=== PATIENT | female | born 1945 | race Caucasian/White ===

== ENCOUNTER 2025-01-12 07:08 | Outpatient (CLI) | payer MEDICARE, SELFPAY ==
--- OUTSIDE RECORDS SUMMARY | 2025-01-12 07:13 | XMS_ITS | Referral Summary ---
Author Organization [facility] [address] Address [address] [place] [address] Phone Care Team Providers Care Load Builder Name Role Phone Yareli Singh MD Primary Care Provider + [phone] Robert Morrissey MD Unavailable [phone] Mars Parnell MD Unavailable [phone] She Castellon MD Unavailable [phone] Edmund Duran MD Unavailable [phone] Miguel Joe MD Unavailable [phone] Alessia Zaldivar MD Unavailable Tio Irving MD Unavailable Encounters Date Type Department Care Team Description 01/11/2025 Results Follow-Up [facility] [address] [place] [address] Cathryn Bryant NP Hemoglobin A1c, CBC with auto differential, Basic metabolic panel, Additional followed-up results: 3 01/08/2025 11:00 AM CDT Lab [facility] [address] [place] [address] HTN (hypertension), benign; Prediabetes; Osteoporosis, idiopathic 01/08/2025 10:00 AM CDT Office Visit [facility] [address] [place] [phone] Cathryn Bryant NP Pre-op evaluation (Primary Dx); HTN (hypertension), benign; Prediabetes 12/09/2024 3:18 PM CDT - 12/09/2024 11:59 PM CDT Hospital Encounter [facility] [address] [place] [address] Right knee pain, unspecified chronicity Discharge Disposition: Discharge to home or self care 12/09/2024 3:17 PM CDT - 12/09/2024 11:59 PM CDT Hospital Encounter [address] [address] Nontoxic single thyroid nodule Discharge Disposition: Discharge to home or self care 11/27/2024 Telephone [facility] [address] [place] [address] Yareli Singh MD 11/27/2024 ACO Medication Access [facility] [address] [place] [id number] Maria Dolores Kramer CPhT 11/23/2024 Telephone [facility] [address] [place] [address] Teresa Joseph Chart Review ([employer] med adherence) 11/10/2024 Telephone [facility] [address] [place] [address] Yareli Singh MD Mounjaro 11/03/2024 Telephone [facility] [address] [place] [address] Yareli Singh MD Endrocrinology 11/02/2024 Telephone [facility] [address] [place] [address] Yareli Singh MD Mounjaro 11/02/2024 1:00 PM CDT [facility] [address] [place] [address] Yareli Singh MD Annual physical exam (Primary Dx); Vertiginous migraine; Mild nonproliferative diabetic retinopathy of both eyes without macular edema associated with type 2 diabetes mellitus (HCC); Type 2 diabetes; Exocrine pancreatic insufficiency; Osteoporosis, idiopathic; Rotator cuff disorder, left; Arthritis of right knee; Exercise-induced asthma; Chronic GERD; Thyroid nodule; Hypertension associated with diabetes (HCC); Irritable bowel syndrome with both constipation and diarrhea; Primary open angle glaucoma (POAG) of both eyes, moderate stage; Mood disorder (CMS/HCC) (HCC); Midline low back pain without sciatica, unspecified chronicity; Immunization counseling 10/26/2024 Results Follow-Up [facility] [address] [place] [address] Yareli Singh MD Hepatitis B core antibody, total Blood, Hepatitis B surface antibody (immune status) Blood, Hepatitis B Surface Antigen Blood, Additional followed-up results: 3 10/26/2024 8:10 AM CDT Lab [facility] [address] [place] [address] Need for hepatitis B screening test; Encounter for hepatitis C screening test for low risk patient; 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) 10/23/2024 Telephone [facility] [address] [place] [address] Naima Kimbrough RN 10/19/2024 Orders Only [facility] [address] [place] [address] Philip Anne NP Strain of latissimus dorsi muscle, initial encounter (Primary Dx); Acute pain of right knee 10/15/[address] [address] Lauren Rhoades MA Unsuccessful Phone Call 1 (Med adherence) 10/14/2024 Orders Only [facility] [address] [facility] [address] [place] [address] Yareli Singh MD Grief reaction (Primary Dx) 10/13/2024 9:30 AM CDT Office Visit [facility] [address] [place] [address] Philip Anne NP Strain of latissimus dorsi muscle, initial encounter (Primary Dx); Situational anxiety; Hypertension associated with diabetes (HCC); Acute pain of right knee 10/13/2024 Telephone [facility] [address] [place] [address] Naima Kimbrough RN from Last 3 Months Allergies Active Allergy Reactions Criticality Noted Date Comments Adhesive Tape-Silicones Rash Medium Reaction: rash, , Brimonidine Itching Low 11/27/2022 Metformin Diarrhea Low 03/04/2020 Milk Diarrhea,Other (See comments) Low Reaction: bloating, diarrhea, Semaglutide Nausea only Low 03/29/2021 Nausea, GERD, GERD associated wheezing Dulaglutide Diarrhea Low 08/26/2023 Abdominal bloating and diarrhea on dose of 4.5 mg daily. Going to try Mounjaro = Tirzeptide =Zepbound Wheat Shortness of breath,Stomach upset High Reaction: sob, stomach upset, Medications vit A,C and W-maftkk-jkhqtgxu (OCUVITE with LUTEIN) 1,000 unit-200 mg-60 unit-2 mg tabletIndications:V itamin Deficiency Prevention 1 tablet Active UdBk-VhSFO4-ruwfrkk n sod-aloe 0.9 % gel Apply to affected nostril(s) Active lancets (Accu-Chek Fastclix Lancet Drum) misc 1 each by other route as directed Check glucose levels once daily as needed to monitor glucose levels E11.9 90 each 1 021 Active dorzolamide-timoloL (COSOPT) 22.3-6.8 mg/mL ophthalmic solution Administer 1 drop into both eyes 2 (two) times a day 022 Active latanoprost (XALATAN) 0.005 % ophthalmic solution INSTILL 1 DROP INTO EACH EYE ONCE DAILY 023 Active triamcinolone (KENALOG) 0.1 % ointmentIndications :skin rash,lichen planus Apply topically 2 (two) times a day For 4 weeks when having flares 30 g 1 Active Additional Information Patient not taking.Reported on 01/08/2025 dicyclomine (BENTYL) 10 mg capsuleIndications: Irritable Bowel Syndrome Take 1 capsule (10 mg total) by mouth daily as needed (Abdominal discomfort) 60 capsule 1 Active cholecalciferol (VITAMIN D-3) 50,000 unit capsuleIndications: Osteoporosis, idiopathic,Vitamin D deficiency Take 1 capsule (50,000 Units total) by mouth once a week Active Additional Information Patient not taking.Reported on 01/08/2025 albuterol HFA (PROVENTIL HFA,VENTOLIN HFA,PROAIR HFA) 90 mcg/actuation inhalerIndications: Exercise-induced asthma Inhale 2 puffs every 6 (six) hours as needed for wheezing 1 each 5 Active busPIRone (BUSPAR) 15 mg tabletIndications:M ood disorder Take 1 tablet (15 mg total) by mouth 2 (two) times a day 180 tablet 2 Active Additional Information Patient taking differently:15 mg oral 2 times daily,Once a day, Reported on 01/08/2025 famotidine (PEPCID) 20 mg tabletIndications:C hronic GERD Take 1 tablet (20 mg total) by mouth 2 (two) times a day as needed for heartburn or indigestion 180 tablet 2 Active pancrelipase (CREON) 24,000 units of lipase capsuleIndications: exocrine pancreatic insufficiency Take 3 capsules by mouth 3 (three) times a day with meals Three at meals and 1 with snacks Max 12 capsules daily 1100 capsule 3 Active abaloparatide (Tymlos) 80 mcg (3,120 mcg/1.56 mL) pen injectorIndications :Osteoporosis, idiopathic Inject 0.04 mL (80 mcg total) under the skin daily before breakfast 1.56 mL 11 Active topiramate (TOPAMAX) 25 mg tabletIndications:V ertiginous migraine Take 1 tablet (25 mg total) by mouth nightly 90 tablet 2 025 Active blood glucose diagnostic (Accu-Chek SmartView Test Strip) stripIndications:Pr ediabetes USE TO CHECK GLUCOSE LEVEL ONCE DAILY E11.9 100 strip 1 025 Active tirzepatide (Mounjaro) 5 mg/0.5 mL pen injector injectionIndication s:Prediabetes Inject 0.5 mL (5 mg total) under the skin once a week 6 mL 2 025 Active cholecalciferol 25 mcg (1,000 unit) tablet Take 1 tablet (1,000 Units total) by mouth daily Active cholestyramine (QUESTRAN) 4 gram packetIndications:D iarrhea following gastrointestinal surgery Take 1 packet by mouth daily for 14 days 14 packet 1 020 2019 Discontinued Active Problems Problem Noted Date Diagnosed Date Pre-op evaluation 01/08/2025 Assessment & Plan (01/08/2025 10:37 AM CDT): Presents for R TKR clearance with Dr. Parnell. Meds and allergies reviewed in office today for accuracy. Vitals stable, no acute findings on exam. Stop Tymlos 30 days before procedure. RCRI score of 1. Low risk for surgical complications, cleared for procedure. Will fax clearance form and recent labs to Dr. Parnell. Situational anxiety 10/13/2024 Assessment & Plan (10/13/2024 11:18 AM CDT): New, unstable, progressive Differential diagnoses: Situational anxiety v new onset chronic depression Hx relative to dx: Recent passing of her son 10/10/2024 Current meds: BuSpar PHQ today = 2 Requesting Xanax. States she has taken Xanax in the past with situational anxiety. Today's Plan: Continue BuSpar Will send request for Xanax to Dr. Singh, pending her authorization. Discussed: Encourage patient to discuss mental health concerns at follow-up appointment. Acute pain of right knee 10/13/2024 Assessment & Plan (10/13/2024 11:26 AM CDT): Acute and Progressive Differential diagnoses: Acute ligamentous injury v meniscal injury Hx relative to dx: Reports she was walking in her yd when she twisted her knee; history of left total knee arthroplasty via Dr. Parnell Relative exam findings today: See physical exam documentation Current meds: none Today's Plan: No medications initiated today for knee pain May try OTC Voltaren PRN. Lab orders: none Imaging orders: none Discussed: Likely need for physical therapy and orthopedic consult. Patient states she does n ot want to deal with this right now and will discuss at her follow-up appointment 11/02. Encourage patient to follow-up with Dr. Parnell when she is able. Osteoporosis, idiopathic 03/15/2024 Overview (03/15/2024): New diagnosis osteoporosis 03/15/2024 based on (+) FRAX score hips AP LUMBAR SPINE L1-L4:Total BMD is 0.932 g/cm2 T-score is -1.0 LEFT HIP:Total BMD is 0.689 g/cm2 T-score is -2.1 Femoral neck BMD is -0.631 g/cm2 T-score is -2.0 FRAX: 10 year risk for a major osteoporotic fracture is 15 %, 10 year risk for a hip racture is 4.3 % DEXA 08/21/2021 (-) AP LUMBAR SPINE L1-L4: Total BMD is 0.966 g/cm2 T-score is -0.7 LEFT HIP:Total BMD is 0.805 g/cm2 T-score is -1.1 Femoral neck BMD is 0.690 g/cm2 T-score is -1.4 Fracture risk assessment (FRAX): 10 year risk for a major osteoporotic fracture is 11 % 10 year risk for a hip fracture is 2.2 Assessment & Plan (08/09/2024 6:30 PM 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 Taking Tymlos without adverse effects. Continue same. Recheck BMP, and vitamin D today. Abnormality of left breast on screening mammogra m 02/24/2024 Overview (02/27/2024): Exam Ended: 02/24/24 12:18 = BI-RADS: 4 - Suspicious for malignancy. Biopsy is recommended.Alessia Zaldivar M.D: . Needle biopsy 02/27/2024 = Vitamin D deficiency 07/09/2023 Assessment & Plan (07/09/2023 7:16 PM OPERATOR AND TRUCK DRIVER): Will re-check serum level today in office due to fatigue. Primary open angle glaucoma (POAG) of both eyes, moderate stage 05/21/2022 Assessment & Plan (05/06/2023 2:11 PM CDT): Pre-perimetric with full Cesar visual field (HVF) intraocular pressure (IOP) acceptable S.P SLT on 3 classes Assessment & Plan (11/26/2022 11:58 PM CDT): Pre-perimetric with full Cesar visual field (HVF) intraocular pressure (IOP) acceptable S.P SLT on 3 classes Assessment & Plan (05/21/2022 8:51 PM OPERATOR AND TRUCK DRIVER): Pre-perimetric with full Cesar visual field (HVF) Agrees to proceed with SLT both eyes (OU) Thyroid nodule 04/06/2021 Overview (11/03/2024): Care transferred to at [facility]'s 2023 He will be following thyroid sonogram and possible biopsy spring 2024 Dr. Wang following April 2021: Thyroid biopsy by Dr. Wang (-) cytology April to left lower thyroid nodule 1.8 cm unchanged IMPRESSION: 1. Heterogeneous thyroid gland with diffusely increased vascularity indicative of underlying nonspecific thyroiditis. Recommend correlation with thyroid function test. 2. 1.8 cm TR 4 nodule in the left lower lobe thyroid gland. Further evaluation by fine needle aspiration is recommended. THIS IS AN ELECTRONICALLY VERIFIED FINAL REPORT 04/27/2021 1:05 PM - Electronically signed by Gumaro Luque M.D. Gumaro Luque M.D. Thyroid biopsy by Dr. Wang (-) cytology April 2021 Thyroid US 11/2022: IMPRESSION: No change in size or morphology left lobe lesion. Assessment & Plan (07/09/2023 7:16 PM OPERATOR AND TRUCK DRIVER): Repeat US in november showed unchanged nodule to left lobe. Trying to get in with Dr. Irving since Dr. Wang is retiring. Referral has been sent. Assessment & Plan (02/11/2023 2:46 PM CDT): Recent thyroid US showed stable nodule, keep follows with Dr. Wang as scheduled. Assessment & Plan (11/08/2022 1:12 PM CDT): Detected on CT scan on 03/06/21 Confirmed with thyroid Ultrasound on 04/06/21 Left lobe nodule 1.8X1.4 cm Benign by FNA biopsy Stable based on ultrasound on 12/22/21 Patient is clinically euthyroid TSH was normal at 2.3 on 03/03/21 Plan: We will continue to monitor thyroid Schedule thyroid ultrasound, and if stable then can be repeated in one year Patient understands and agrees with above plan. Assessment & Plan (11/09/2021 1:02 PM CDT): Detected on CT scan on 03/06/21 Confirmed with thyroid Ultrasound on 04/06/21 Left lobe nodule 1.8X1.4 cm Benign by FNA biopsy Patient is clinically euthyroid TSH was normal at 2.3 on 03/03/21 Plan: We will continue to monitor thyroid Schedule thyroid ultrasound, and if stable then can be repeated in one year Patient understands and agrees with above plan. Assessment & Plan (04/06/2021 3:32 PM CDT): Detected on CT scan on 03/06/21 Patient is clinically euthyroid TSH was normal at 2.3 on 03/03/21 Plan: The abnormality on CT scan on thyroid explained to patient We will investigate with thyroid Ultrasound Discussed with patient management of either FNA biopsy for large or suspicious nodules vs monitoring with ultrasound. Follow up and further recommendation will be decided after we obtain test results. Exocrine pancreatic insufficiency 03/29/2020 Overview (11/02/2024): Mildly elevated fecal fat March 2020. Fat, percent of solids, fecal <20 23VC Giving trial Creon 24,000 3 tablets 3 times daily with food with resolution of diarrhea Assessment & Plan (02/11/2023 2:48 PM CDT): Controlled on current dose of Creon, will refill. Mood disorder (CMS/HCC) 11/27/2019 Assessment & Plan (02/11/2023 2:46 PM CDT): Stable on BuSpar, will refill in office today. Sensorineural hearing loss 01/30/2019 History of left knee replacement 01/24/2019 Overview (01/24/2019): LEFT KNEE DR. PARNELL SEPTEMBER 2018 Prediabetes 06/30/2017 Assessment & Plan (01/08/2025 10:36 AM CDT): Chronic, controlled. Last HbA1c in July was 5.5, CMP unremarkable. no new symptoms or concerns on mounjaro,weight stable, BMI at 24.2. Noted decrease in appetite. Admits regular exercise routine. No acute findings on exam, will continue mounjaro to 5mg dose. continue heart healthy diet and exercise. Recheck A1c today. Keep follow with repeat labs in 4 months. Assessment & Plan (08/09/2024 6:27 PM OPERATOR AND TRUCK DRIVER): Chronic, controlled. Last HbA1c last week was 5.5. no new symptoms or concerns on mounjaro, down 9 lbs in last 4 months, BMI down to 24.5. Noted decrease in appetite. Admits regular exercise routine. No acute findings on exam, will decrease mounjaro to 5mg dose. Keep follow with repeat labs in 3months. Assessment & Plan (01/13/2024 9:41 AM CDT): Last HbA1c in August was 6.2. no new symptoms or concerns after starting mounjaro, down 4 lbs in last month, BMI down to 27.1. Noted decrease in appetite. Admits regular exercise routine. AM sugars running 100-110s according to record. No acute findings on exam, will refill mounjaro at 7.5mg dose. Follow up in 1 month with repeat labs before. Assessment & Plan (12/16/2023 9:15 AM CDT): Last HbA1c in August was 6.2. no new symptoms or concerns after starting mounjaro, down 5 lbs in last month, BMI down to 27.8. Noted decrease in appetite. Admits regular exercise routine. AM sugars running 100-110s according to record. No acute findings on exam, will increase mounjaro to 7.5mg dose. Follow up in 1 month with repeat BMP before. Assessment & Plan (11/25/2023 8:00 PM CDT): Last HbA1c in August was 6.2. no new symptoms or concerns after starting mounjaro, down 2 lbs in last month. Noted decrease in appetite. Admits regular exercise routine. AM sugars running 100-110s according to record. No acute findings on exam, will increase mounjaro to 5mg dose. Follow up in 1 month with repeat BMP before. Assessment & Plan (10/22/2023 9:36 PM CDT): Last HbA1c in August was 6.2. no new symptoms or concerns after starting mounjaro, down 3 lbs in last month. Noted decrease in appetite. Admits regular exercise routine. AM sugars running 100-110s according to record. No acute findings on exam, will increase mounjaro to 7.5mg dose. Follow up in 1 month with repeat BMP before. Assessment & Plan (09/20/2023 10:18 AM OPERATOR AND TRUCK DRIVER): Last HbA1c in August was 6.2. no new symptoms or concerns after starting mounjaro, down 1 lb in last month. Noted decrease in appetite. Admits regular exercise routine. AM sugars running 100-110s according to record. No acute findings on exam, will increase mounjaro to 5mg dose. Follow up in 1 month with repeat BMP before. Vertiginous migraine 01/04/2017 Overview (08/09/2024): 1. 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 She has minimal sensitivity to loud sound. 2. Complex dizziness secondary to vestibular migraine. Her motion sensitivity and constant daily headache and visual scotama are highly suggestive of vestibular migraine. She will plan to follow a migraine diet and follow up with our migraine specialist Bibiana Diaz NP in one month or sooner if any problems develop. 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 She has chosen to enter the vestibular migraine study. She has previously had surgeries for her canal dehiscence. Of note, she reports she received her Master Degree in Social Work from [employer]. Miguel Joe M.D. [facility] Department of Otolaryngology - Head and Neck Surgery Chief, Otologic and Neurotologic Surgery Assessment & Plan (08/09/2024 6:25 PM OPERATOR AND TRUCK DRIVER): Controlled on Topamax nightly and propranolol BID. No acute findings on exam, neuro intact. Continue same. Stay hydrated, avoid triggers. Assessment & Plan (02/11/2023 2:51 PM CDT): Controlled on Topamax nightly and propranolol BID. No acute findings on exam, neuro intact. Refills sent. Stay hydrated, avoid triggers. Diabetic retinopathy associa bette with type 2 diabetes mellitus 09/14/2015 Assessment & Plan (05/06/2023 2:13 PM CDT): No retinopathy on exam today Lab Results Component Value Date HGBA1C 6.0 (H) 02/05/2023 HTN (hypertension), benign 11/28/2013 Overview (10/17/2016): Benign essential HTN Assessment & Plan (01/08/2025 10:34 AM CDT): Chronic, at goal. BP stable in office today on current therapy. Has been well controlled on just diet/exercise for over a year. No acute findings on exam. RCRI score of 1, low risk for surgical complications. CMP and LDL from July. Continue diet/exercise and low salt diet. Assessment & Plan (10/13/2024 11:28 AM CDT): # hypertension r/t DM2 Chronic and Stable History possibly contributing to diagnosis: DM2 BP today: 160/90; likely elevated in setting of significant stress Pertinent exam findings: Denies headache, vision changes Current therapy (ies)/home meds: none She takes her blood sugars every 2 weeks at home; 100s. Today's plan: Medications ordered today: no initiation of medications today given elevated blood pressure likely 2/2 significant stress and recent events Encourage patient to take blood pressure at home and notify clinic of log if blood pressure remains elevated prior to follow-up 11/02 Discussed prednisone in its affect on DM2 and HTN; encouraged to monitor closely. Education provided. Recommendations: Diet: recommend heart healthy diet including balanced diet of proteins, green leafy vegetables, moderate carbohydrate and dairy intake (largely low salt, low fat) Recommend regular exercise. AHA recommends at least 30 minutes daily of elevated heart rate above 130 beats per minute (bpm) Encouraged patient to manage stress appropriately Considerable consults should symptoms persist or become chronic: Cardiology Assessment & Plan (08/09/2024 6:24 PM OPERATOR AND TRUCK DRIVER): Chronic, at goal. BP stable in office today off meds. No acute findings on exam. CMP and lipids from February unremarkable. Continue heart healthy diet/exercise. low salt diet. Assessment & Plan (01/13/2024 9:41 AM CDT): Chronic, at goal. BP stable in office today off meds. No acute findings on exam. Continue heart healthy diet/exercise. low salt diet. Assessment & Plan (12/16/2023 9:14 AM CDT): Chronic, at goal. BP stable in office today off meds. No acute findings on exam. Continue heart healthy diet/exercise. low salt diet. Assessment & Plan (11/25/2023 8:02 PM CDT): Chronic, at goal. BP stable in office today, continue off meds for now. No acute findings on exam. recent labs unremarkable. Continue low salt diet. Assessment & Plan (10/22/2023 9:37 PM CDT): Chronic, at goal. BP stable in office today on current therapy. No acute findings on exam. Recent labs unremarkable. Continue current regimen and low salt diet. Assessment & Plan (09/20/2023 10:15 AM OPERATOR AND TRUCK DRIVER): BP stable in office today on current therapy. No acute findings on exam. Continue current regimen and low salt diet. Assessment & Plan (07/09/2023 7:14 PM OPERATOR AND TRUCK DRIVER): BP borderline in office today at 140/78 (90). Asymptomatic, no acute findings on exam. Continue current medication regimen. Will check CMP, CBC due to fatigue, see plan above. Assessment & Plan (02/11/2023 2:47 PM CDT): BP stable in office today on current therapy. No acute findings on exam. Continue current regimen and low salt diet. Assessment & Plan (11/08/2022 1:32 PM CDT): Controlled with medication - low salt diet - continue medication per PCP Assessment & Plan (11/09/2021 1:01 PM CDT): Controlled with medication - low salt diet - continue medication per PCP Assessment & Plan (04/06/2021 3:33 PM CDT): Controlled with medication - low salt diet - continue medication per PCP Exercise-induced asthma 11/28/2013 Overview (10/18/2016): Exercise-induced asthma Assessment & Plan (02/11/2023 2:49 PM CDT): Stable on symbicort daily, only using albuterol with exercise. No acute finding on exam. Lungs clear. Refills sent. Irritable bowel syndrome 11/28/2013 Overview (10/18/2016): IBS (irritable bowel syndrome) Assessment & Plan (02/11/2023 2:47 PM CDT): Taking Bentyl 1-2 times weekly as needed, no acute findings on exam. Labs last week unremarkable. Refill sent to pharmacy. [facility] diet. Resolved Problems Problem Noted Date Diagnosed Date Resolved Date Strain of latissimus dorsi muscle 10/13/2024 01/08/2025 Assessment & Plan (10/13/2024 11:16 AM CDT): # strain of latissimus dorsi, left New, unstable Differential diagnoses: Strain of latissimus dorsi v external/internal oblique No acute trauma, no concern for fracture at this time History possibly contributing to diagnosis: Takes Tymlos Pertinent exam findings: See physical exam Current therapy (ies)/home meds: None Today's plan: Medications ordered today: Start prednisone and tizanidine Low-dose prednisone for inflammation. Patient states I have to be right for . Fearful muscle relaxer will cause fatigue Discussed physical therapy. Patient requesting to defer at this time. Encouraged her to discuss at follow-up with Dr. Singh should symptoms persist. Education provided. Recommendations: RICE (rest, ice, compression, elevation) Stretching (handout given today) Considerable consults should symptoms persist or become chronic: Orthopaedics Other fatigue 07/09/2023 08/26/2023 Assessment & Plan (07/09/2023 7:21 PM OPERATOR AND TRUCK DRIVER): For several months but worse in the last 4 weeks. See HPI for details. No acute findings on exam. No acute signs of heart failure or worsening thyroid disease. No recent bleeding or indication of anemia. Mood seems normal today in office. No sleep changes. Advised that both meclizine and topamax can have strong sedative side effects but has fear if she cuts out either one she will get the dizziness again. No acute physical exam findings. Will check CMP, CBC, TSH with reflex, and vitamin D. Primary open angle glaucoma (POAG) of right eye, moderate stage 05/21/2022 08/26/2023 Assessment & Plan (05/06/2023 2:11 PM CDT): Tmax low 20s with modest response to meds Thick CCT Allergy to Brimonidine Hx of confirmed sup arcuate defect right eye (OD) -sl progression with polar thinning of RNFL status post (s/p) SLT both eyes (OU) with intraocular pressure (IOP) mid teens CPM Defer surgery F/U with Dr. 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): Tmax low 20s with modest response to meds Thick CCT Confirmed sup arcuate defect right eye (OD) -sl progression with polar thinning of RNFL Intolerant to PG and Cosopt with only modest intraocular pressure (IOP) lowering Recommend SLT both eyes (OU)- discussed R/B/A and need for potential surgical intervention in future Agrees to proceed with SLT both eyes (OU) Discussed R/B/A and she agrees to proceed Viral URI with cough 05/29/2021 023 Assessment & Plan (05/29/2021 3:02 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 Chills have resolved, but sore throat persist. She was rapid tested for covid 19 and testing was negative. She was encouraged to rest, increase fluids, use tylenol for pain or fever as symptoms and findings appear viral in nature. She is to use saline rinses, Mucinex and flonase as well. She is to call later this week should symptoms worsen or persist. 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 On exam mild erythema noted. No exudate present. She had rapid test for strep that was negative. Symptom management was encouraged. Special screening for malign ant neoplasms, colon 01/07/2020 08/13/2022 Overview (01/07/2020): Added automatically from request for surgery [id number] Encounter for screening colonoscopy 09/01/2019 08/11/2021 Overview (09/01/2019): Added automatically from request for surgery [id number] Achilles tendinitis of right lower extremity 8 08/11/2021 Overview (03/28/2018): Calcific tendinitis found on Doppler ultrasound R leg March 2018 [facility] FINDINGS: The right Achilles tendon is markedly thickened throughout the length of the tendon to the myotendinous junction. The tendon measures up to 1.2 cm in thickness in AP dimension. The tendon is diffusely heterogeneous and hyperechoic and has increased internal blood flow. There is no discrete tear. There is a trace amount of fluid in the subcutaneous retrocalcaneal bursa. A comparison image of the left Achilles tendon shows borderline thickening of the tendon. Ran Woods M.D. 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 Immunizations Immunization Administration Dates Next Due COVID-19 mRNA (Accelalox) 0.3 m L (30 mcg) vaccine (12 years and up) 08/27/2023 Influenza, Quadrivalent, Hig h Dose, Preservative Free, Intrr 04/17/2023,04/23/2022,04/06/2021,03/26,03/28/2017,04/20/2014 Influenza, Trivalent, Adjuva nted, Intramuscular 05/05/2024 Influenza, Trivalent, High D ose, Split, Preservative Free, Intramuscular 04/15/2019,03/27/2017,03/29/2016,04/20 Influenza, Trivalent, IM (MDV) 04/14/2016,2014 Influenza, Unspecified 04/02/2018,2016,04/14/2016,05/03,04/20/2014 Moderna SARS-CoV-2 Monovalen t Vaccination (12+ YRS) 05/19/2021,09/27/2020,08/16/2020 Pfizer SARS-CoV-2 Monovalent Vaccination (12+ Yrs) COONEY-READY TO USE 10/18/2021 Pfizer Sars-Cov-2 Bivalent V accination (12+ YRS) 04/30/2022 Pneumococcal Conjugate PCV 13 11/16/2014 Pneumococcal Polysaccharide PPV23 12/23/2015, RSV Vaccine, Pref, Recombina nt, Subunit, Adjuvanted, PF, IM (Arexvy) 06/11/2023 Tdap 08/29/2019,08/11/2009 ZOSTER LIVE 12/09/2008 ZOSTER Recombinant 06/22/2018,04/07/2018 Social History Tobacco Use Types Packs/Day Years Used Date Smoking Tobacco: Never Smokeless Tobacco: Never Tobacco Cessation:Counseling Given: Not Answered Alcohol Use Standard Drinks/Week Comments No 0 (1 standard drink = 0.6 oz pur e alcohol) AUDIT-C Answer Date Recorded Q1: How often do you have a drink containing alcohol? Never 05/21/2022 Q2: How many drinks containi ng alcohol do you have on a typical day when you are drinking? Patient does not drink Q3: How often do you have si x or more drinks on one occasion? 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 Gender Identity Not on file Sexual Orientation Not on file Occupation Industry Job Start Date Job End Date retired Not on file Not on file Not on file Last Filed Vital Signs Vital Sign Reading Time Taken Comments Blood Pressure 124/86 01/08/2025 10:03 AM CDT Pulse 74 01/08/2025 10:03 AM CDT Temperature 36.8 C (98.2 F) 01/08/2025 10:03 AM CDT Respiratory Rate 18 01/08/2025 10:03 AM CDT Oxygen Saturation 97% 01/08/2025 10:03 AM CDT Inhaled Oxygen Concentration - - Weight 64 kg (141 lb) 01/08/2025 10:03 AM CDT Height 162.6 cm (5' 4) 01/08/2025 10:03 AM CDT Body Mass Index 24.2 01/08/2025 10:03 AM CDT Plan of Treatment Not on file Medical Devices Implanted Type Area District Sales Coordinator Device Identifier Shelf Expiration Date Model / Serial / Lot [employer] Marker Tissue Side Deploy Applicator U Shaped Radiopaque Clip Titanium Collagen Revolve 10ga [id number] - [id number] - [id number] Implanted:Qty: 1 on 02/27/2024 by Mickey Licea MD at [facility] [place] Breast Left: Breast PlaceFull 03/03/2024 [id number] / [id number] / [id number] Description:Stereotactic bio psy, central inferior left breast. Cores x5. Microcalcs in cassettes 1-5. Procedures Procedure Name Priority Date/Time Associated Diagnosis Comments EGFR Routine 01/08/2025 5:12 PM CDT HTN (hypertension), benign Prediabetes BASIC METABOLIC PANEL Routine 01/08/2025 5:12 PM CDT HTN (hypertension), benign Prediabetes VITAMIN D 25 HYDROXY Routine 01/08/2025 4:40 PM CDT Osteoporosis, idiopathic HEMOGLOBIN A1C Routine 01/08/2025 10:30 AM CDT HTN (hypertension), benign Prediabetes DIFFERENTIAL AUTO Routine 01/08/2025 10: 27 AM CDT HTN (hypertension), benign Prediabetes CBC WITH AUTO DIFFERENTIAL Routine 01/08/2025 10:27 AM CDT HTN (hypertension), benign Prediabetes US THYROID Schedule Routine, Read Routine (OP Routine) 12/09/2024 4:08 PM CDT Nontoxic single thyroid nodule XR KNEE RIGHT 4 OR MORE VIEWS Schedule Routine, Read Routine (OP Routine) 12/09/2024 3:29 PM CDT Right knee pain, unspecified chronicity EGFR Routine 10/26/2024 8:21 AM CDT 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) COMPREHENSIVE METABOLIC PANEL Routine 10/26/2024 8:21 AM CDT 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) HEPATITIS C ANTIBODY Routine 10/26/2024 8:21 AM CDT Encounter for hepatitis C screening test for low risk patient HEPATITIS B SURFACE ANTIGEN Routine 10/26/2024 8:21 AM CDT Need for hepatitis B screening test HEPATITIS B SURFACE ANTIBODY (IMMUNE STATUS) Routine 10/26/2024 8:21 AM CDT Need for hepatitis B screening test HEPATITIS B CORE ANTIBODY, TOTAL Routine 10/26/2024 8:21 AM CDT Need for hepatitis B screening test ALBUMIN CREATININE RATIO, URINE Routine 08/03/2024 6:49 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 73 m2 Comment: Interpretive Data Reference Interval Normal >/= 90 mL/min/1.73m2 Mildly decreased* 60 - 89 mL/min/1.73m2 Mildly to moderately decreased 45 - 59 mL/min/1.73m2 Moderately to severely decreased 30 - 44 mL/min/1.73m2 Severely decreased 15 - 29 mL/min/1.73m2 Kidney Failure < 15 mL/min/1.73m2 *Relative to young adult level Estimated glomerular filtration rate is determined by the 2020 CKD-EPI equation recommended by the National Kidney Foundation (A Unifying Approach to GFR Estimation: Recommendations of the NKF-ASK Task Force on Reassessing the Inclusion of Race in Diagnosing Kidney Disease, JASN 2020). The CKD-EPI equation should not be used for patients with unstable renal function and has not been validated in children and those over 70. Current interpretive data was last reviewed 2021. Testing performed by: [facility], [address] [place] [address], [place]., [address] Blood 01/08/2025 5:12 PM CDT 01/08/2025 5:12 PM CDT Cathryn Bryant NP LAB BLOOD ORDERABLES Final Resul t [address] Department [place] [address] * Basic metabolic panel (01/08/2025 5:12 PM CDT) Pathologist [facility] Sodium 140 135 - 145 mmol/L Comment:Testing performed by : [facility], [address] [place] [address]., [address] Potassium, pl 4.2 3.3 - 4.9 mmol/L [facility] Comment:Testing performed by : [facility], [address] [place] [address]., [address] Chloride 106 97 - 110 mmol/L [facility] Comment:Testing performed by : [address] [address] CO2 23 22 - 32 mmol/L [facility] Comment:Testing performed by : [address] [address] Anion gap 11 2 - 15 mmol/L [facility] Comment:Testing performed by : [address] [address] BUN 20 6 - 25 mg/dL [facility] Comment:Testing performed by : [address], [address] Creatinine 0.85 0.60 - 1.10 mg/dL [facility] Comment:Testing performed by : [address], [address] Glucose 85 70 - 199 mg/dL [facility] Comment: Interpretive Data Fasting glucose >/= 126 mg/dl is diagnostic for diabetes. Fasting is defined as no caloric intake for at least 8 hours. Fasting glucose between 100 mg/dl to 125 mg/dl is diagnostic of prediabetes. In a patient with classic symptoms of hyperglycemia or hyperglycemic crisis, a random glucose >/= 200 mg/dl is diagnostic for diabetes. In the absence of unequivocal hyperglycemia, results should be confirmed by repeat testing. The classification and Diagnosis of Diabetes Diabetes Care 202; 46: S19-S40. Current interpretive data was last revised 2022. Testing performed by: [facility], [address] [place] [address]., [address] Calcium 9.1 8.5 - 10.3 mg/dL [facility] Comment:Testing performed by : [address] [address] Blood 01/08/2025 5:12 PM CDT 01/08/2025 5:12 PM CDT Cathryn Bryant LAB BLOOD ORDERABLES Final Resul t Performing Organization Address [facility]/ZIP Co de Phone Number SUZANNE[address] [place] [address] * (ABNORMAL) Vitamin D 25 hydroxy (01/08/2025 4:40 PM CDT) Vitamin D 25-OH 27(L) 30 - 80 ng/mL Comment:Testing performed by : [facility], [address] [place] [address]., [address] Blood 01/08/2025 4:40 PM CDT 01/08/2025 4:47 PM CDT Cathryn Bryant LAB BLOOD ORDERABLES Final Resul t Performing Organization Address [facility] Co de Phone Number SUZANNE[address] [place] [address] * (ABNORMAL) Hemoglobin A1c (01/08/2025 10:30 AM CDT) Hgb A1C 5.7(H) 4.0 - 5.6 % Comment:Testing performed by : [address] [address] Estimated Average Glucose 117 mg/dL [facility] Comment: The ADA recommends reporting an estimated Average Glucose (eAG) with all Hemoglobin A1c results using the equation derived from a study of 507 normal and diabetic adults. Minority populations were underrepresented and children were not included. (Diabetes Care 31:4943-6074, 2008). The eAG is not equivalent to a fasting glucose. Testing performed by: [facility], [address] [place] [address]., [address] Blood 01/08/2025 10:3 0 AM CDT 01/09/2025 4:47 AM CDT us Cathryn Bryant NP LAB BLOOD ORDERABLES Final Resul t [address] Department [place] [address] * Differential, auto (01/08/2025 10:27 AM CDT) Neutrophil abs 5.56 1.50 - 6.50 K/cumm Comment:Testing performed by : [address] [address] Imm gran abs 0.03 0.00 - 0.10 K/cumm [facility] Comment:Testing performed by : [address] [address] Lymphocyte abs 1.64 0.80 - 3.30 K/cumm [facility] Comment:Testing performed by : [address] [address] Monocyte abs 0.74 0.20 - 0.80 K/cumm [facility] Comment:Testing performed by : [address] [address] Eosinophil abs 0.19 0.00 - 0.50 K/cumm [facility] Comment:Testing performed by : [address] [address] Basophil abs 0.05 0.00 - 0.10 K/cumm [facility] Comment:Testing performed by : [address] [address] Neutrophil pct 67.7 % [facility] Comment: Interpretive Data Percent cell count reference ranges are not reported, since discordance with absolute values may lead to misinterpretation of CBC data. Current Interpretive Data was last revised on 2017. Testing performed by: [address] [address] Imm gran pct 0.4 % [facility] Comment: Interpretive Data Percent cell count reference ranges are not reported, since discordance with absolute values may lead to misinterpretation of CBC data. Current Interpretive Data was last revised on 2017. Testing performed by: [facility], [address] [place] [address]., [address] Lymphocyte pct 20.0 % [facility] Comment: Interpretive Data Percent cell count reference ranges are not reported, since discordance with absolute values may lead to misinterpretation of CBC data. Current Interpretive Data was last revised on 2017. Testing performed by: [facility], [address] [place] [address]., [address] Monocyte pct 9.0 % [facility] Comment: Interpretive Data Percent cell count reference ranges are not reported, since discordance with absolute values may lead to misinterpretation of CBC data. Current Interpretive Data was last revised on 2017. Testing performed by: [address] [address] Eosinophil pct 2.3 % [facility] Comment: Interpretive Data Percent cell count reference ranges are not reported, since discordance with absolute values may lead to misinterpretation of CBC data. Current Interpretive Data was last revised on 2017. Testing performed by: [address] [address] Basophil pct 0.6 % [facility] Comment: Interpretive Data Percent cell count reference ranges are not reported, since discordance with absolute values may lead to misinterpretation of CBC data. Current Interpretive Data was last revised on 2017. Testing performed by: [address] [address] Blood 01/08/2025 10:2 7 AM CDT 01/08/2025 4:40 PM CDT us Cathryn Bryant NP LAB BLOOD ORDERABLES Final Resul t [facility] [address] [address] Department [place] [address] * (ABNORMAL) CBC with auto differential (01/08/2025 10:27 AM CDT) WBC 8.21 3.80 - 9.90 K/cumm Comment:Testing performed by : [facility], [address] [place] [address], [address] Hgb 14.0 11.9 - 15.5 g/dL [facility] Comment:Testing performed by : [address], [address] Hct 43.8 35.6 - 45.5 % [facility] Comment:Testing performed by : [address], [address] Plt 196 150 - 400 K/cumm [facility] Comment:Testing performed by : [address], [address] MPV 11.7 9.1 - 12.3 fL [facility] Comment:Testing performed by : [address], [address] RBC 5.04 3.90 - 5.20 M/cumm [facility] Comment:Testing performed by : [address], [address] MCV 86.9 81.3 - 96.4 fL [facility] Comment:Testing performed by : [address], [address] MCH 27.8 27.1 - 33.3 pg [facility] Comment:Testing performed by : [address], [address] MCHC 32.0(L) 32.3 - 35.7 g/dL [facility] Comment:Testing performed by : [address], [address] RDW CV 14.9 11.1 - 14.9 % [facility] Comment:Testing performed by : [address], [address] RDW SD 47.8 35.7 - 48.1 fL [facility] Comment:Testing performed by : [address], [address] NRBC abs 0.00 0.00 - 0.01 K/cumm [facility] Comment:Testing performed by : [address], [address] Blood 01/08/2025 10:2 7 AM CDT 01/08/2025 4:40 PM CDT us Cathryn Bryant NP LAB BLOOD ORDERABLES Final Resul t [facility] [id number] [address] Department [place] [address] * US Thyroid (12/09/2024 4:08 PM CDT) Anatomical Region Laterality Modality Head and Neck N/A Ultrasound 12/21/2024 7:58 AM CDT Narrative 12/21/2024 8:09 AM CDT EXAM DESCRIPTION: US THYROID REASON FOR STUDY: E04.1 TECHNIQUE: Ultrasound of the thyroid was performed with grayscale and color doppler. COMPARISON: Thyroid ultrasound 11/20/2022 ; thyroid ultrasound 12/22/2021; thyroid biopsy 05/10/2021; thyroid ultrasound 04/27/2021 FINDINGS: RIGHT: The right thyroid lobe measures 4.4 x 1.6 x 1.3 cm. The right thyroid lobe is normal in echotexture. LEFT: The left thyroid lobe measures 4.8 x 1.6 x 2.0 cm. The left thyroid lobe is normal in echotexture. ISTHMUS: The isthmus measures 0.2 cm in AP dimension. The isthmus is normal in echotexture. VASCULARITY: Increased NODULES: 1. Right mid thyroid: 1.0 x 0.8 x 0.8 cm. Not previously described. Solid, hypoechoic, wider than tall, ill-defined margins, no echogenic foci. 4 points. TI-RADS 4 nodule. 1 year follow-up recommended. 2. Left inferior thyroid: 1.8 x 1.2 x 1.3 cm, previously 1.8 x 1.2 x 1.4 cm (05/10/2021). Solid, hypoechoic, wider than tall, circumscribed smooth margins, no echogenic foci. Grossly unchanged in appearance. Recommend correlation with previous biopsy results. OTHER: No other significant finding. IMPRESSION: 1. Unchanged appearance of the 1.8 cm left inferior thyroid nodule. Recommend correlation with previous biopsy results. 2. Right mid thyroid nodule measuring 1.0 cm. Recommend follow-up ultrasound in 1 year. 3. Increased vascularity of the thyroid gland, which can be seen in the setting of thyroiditis. REFERENCE: According to the ACR Thyroid Imaging, Reporting and Data System (TI-RADS): White Paper of the ACR TI-RADS Committee Nov, 2016 recommendations regarding the management of thyroid nodules are as follows: 1. TI-RADS 1: Risk of malignancy <2%, no FNA or follow up required. 2. TI-RADS 2: Risk of malignancy <2%, no FNA or follow up required. 3. TI-RADS 3: Risk of malignancy 2%-5%. Nodules 1.5 cm or greater follow up at 1, 3 and 5 years recommended, for nodules 2.5 cm or greater FNA recommended. 4. TI-RADS 4: Risk of malignancy 5%-20% Nodules 1.0 cm or greater follow up at 1, 2, 3 and 5 years recommended, for nodules 1.5 cm or greater FNA recommended 5. TI-RADS 5: Risk of malignancy >20%. Nodules 0.5 cm or greater annual follow up for 5 years recommended, for nodules 1.0 cm or greater FNA recommended. The ACT TI-RADS committee recommends targeting no more than two nodules for FNA. If three or more nodules meet criteria for FNA, the two with the most suspicious appearance based on ACR TI-RADS points should be sampled. THIS IS AN ELECTRONICALLY VERIFIED FINAL REPORT 12/21/2024 8:09 AM - Electronically signed by Willard Chakraborty M.D. AM: AM Report ID: [id number] Reading Location: [id number] Procedure Note Willard Chakraborty MD - 12/21/2024 EXAM DESCRIPTION: US THYROID REASON FOR STUDY: E04.1 TECHNIQUE: Ultrasound of the thyroid was performed with grayscale andcolor doppler. COMPARISON: Thyroid ultrasound 11/20/2022 ; thyroid ultrasound 12/22/2021; thyroid biopsy 05/10/2021; thyroid ultrasound 04/27/2021 FINDINGS: RIGHT: The right thyroid lobe measures 4.4 x 1.6 x 1.3 cm. The right thyroid lobe is normal in echotexture. LEFT: The left thyroid lobe measures 4.8 x 1.6 x 2.0 cm. The leftthyroid lobe is normal in echotexture. ISTHMUS: The isthmus measures 0.2 cm in AP dimension. The isthmus isnormal in echotexture. VASCULARITY: Increased NODULES: 1. Right mid thyroid: 1.0 x 0.8 x 0.8 cm. Not previously described.Solid, hypoechoic, wider than tall, ill-defined margins, no echogenic foci. 4 points. TI-RADS 4 nodule. 1 year follow-up recommended. 2. Left inferior thyroid: 1.8 x 1.2 x 1.3 cm, previously 1.8 x 1.2 x 1.4cm (05/10/2021). Solid, hypoechoic, wider than tall, circumscribed smooth margins, no echogenic foci. Grossly unchanged in appearance. Recommend correlation with previous biopsy results. OTHER: No other significant finding. IMPRESSION: 1. Unchanged appearance of the 1.8 cm left inferior thyroid nodule.Recommend correlation with previous biopsy results. 2. Right mid thyroid nodule measuring 1.0 cm. Recommend follow-upultrasound in 1 year. 3. Increased vascularity of the thyroid gland, which can be seen in the setting of thyroiditis. REFERENCE: According to the ACR Thyroid Imaging, Reporting and Data System (TI-RADS): White Paper of the ACR TI-RADS Committee Nov, 2016recommendations regarding the management of thyroid nodules are as follows: 1. TI-RADS 1: Risk of malignancy <2%, no FNA or follow up required. 2. TI-RADS 2: Risk of malignancy <2%, no FNA or follow up required. 3. TI-RADS 3: Risk of malignancy 2%-5%. Nodules 1.5 cm or greater followup at 1, 3 and 5 years recommended, for nodules 2.5 cm or greater FNArecommended. 4. TI-RADS 4: Risk of malignancy 5%-20% Nodules 1.0 cm or greater followup at 1, 2, 3 and 5 years recommended, for nodules 1.5 cm or greater FNA recommended 5. TI-RADS 5: Risk of malignancy >20%. Nodules 0.5 cm or greater annual follow up for 5 years recommended, for nodules 1.0 cm or greater FNA recommended. The ACT TI-RADS committee recommends targeting no more than two nodulesfor FNA. If three or more nodules meet criteria for FNA, the two with themost suspicious appearance based on ACR TI-RADS points should be sampled. THIS IS AN ELECTRONICALLY VERIFIED FINAL REPORT 12/21/2024 8:09 AM - Electronically signed by Willard Chakraborty M.D. AM: AM Report ID: [id number] Reading Location: [id number] us Tio Irving MD IMG US PROCEDURES Final Result * XR Knee Right 4 or More Views (12/09/2024 3:29 PM CDT) Anatomical Region Laterality Modality Lower Extremities, Knee Right Computed Radiography 12/10/2024 6:05 PM CDT Narrative 12/10/2024 6:06 PM CDT EXAM DESCRIPTION: XR KNEE RIGHT 4 OR MORE VIEWS REASON FOR STUDY: right knee pain Chronic knee pain States she had her left knee replaced x 10 years ago and at that time they said she should have her right replaced too Osteoarthritis FINDINGS: Four views submitted without comparison. No acute fracture. Alignment is normal. Yqzw-rp-zvspdkxe tricompartmental right knee osteoarthritis. Chondrocalcinosis is present. Small knee effusion. IMPRESSION: Qlsl-zt-muuxhdbg tricompartmental right knee osteoarthritis with a small effusion. THIS IS AN ELECTRONICALLY VERIFIED FINAL REPORT 12/10/2024 6:06 PM - Electronically signed by Gumaro Mayo M.D. MF: [email or web address] Report ID: [id number] Reading Location: [id number] Procedure Note Gumaro Mayo MD - 12/10/2024 EXAM DESCRIPTION: XR KNEE RIGHT 4 OR MORE VIEWS REASON FOR STUDY: right knee pain Chronic knee pain States she had her left knee replaced x 10 years agoand at that time they said she should have her right replaced tooOsteoarthritis FINDINGS: Four views submitted without comparison. No acute fracture. Alignment is normal. Bkea-op-vjazkbrozxzjfiyeyzdcqhsh right knee osteoarthritis. Chondrocalcinosis is present. Small knee effusion. IMPRESSION: Czkf-ur-konklabp tricompartmental right knee osteoarthritis with a small effusion. THIS IS AN ELECTRONICALLY VERIFIED FINAL REPORT 12/10/2024 6:06 PM - Electronically signed by Gumaro Mayo M.D. MF: [email or web address] Report ID: [id number] Reading Location: [place] [address] us Mars Parnell MD IMG XR PROCEDURES Final Re sult * eGFR (10/26/2024 8:21 AM CDT) eGFR 77 >=60 mL/min/1. 73 m2 Comment: Interpretive Data Reference Interval Normal >/= 90 mL/min/1.73m2 Mildly decreased* 60 - 89 mL/min/1.73m2 Mildly to moderately decreased 45 - 59 mL/min/1.73m2 Moderately to severely decreased 30 - 44 mL/min/1.73m2 Severely decreased 15 - 29 mL/min/1.73m2 Kidney Failure < 15 mL/min/1.73m2 *Relative to young adult level Estimated glomerular filtration rate is determined by the 2020 CKD-EPI equation recommended by the National Kidney Foundation (A Unifying Approach to GFR Estimation: Recommendations of the NKF-ASK Task Force on Reassessing the Inclusion of Race in Diagnosing Kidney Disease, JASN 2020). The CKD-EPI equation should not be used for patients with unstable renal function and has not been validated in children and those over 70. Current interpretive data was last reviewed 2021. Testing performed by: [facility], [address] [place] [address], [place]., [address] Blood 10/26/2024 8:21 AM CDT 10/26/2024 5:52 PM CDT us Yareli Singh MD LAB BLOOD ORDERABLES Final Result [facility] [address] [facility] Department [place] [address] * Hepatitis C antibody Blood (10/26/2024 8:21 AM CDT) Hep C Ab Nonreactive Nonreactive Comment: Interpretive Data Nonreactive: Antibodies to HCV not detected. Does NOT exclude the possibility of recent exposure to HCV. Equivocal: Equivocal for HCV antibodies. Supplemental molecular testing will be automatically performed to determine infection status in accordance with current CDC screening recommendations. Reactive: Positive for HCV antibodies. This may represent current or past HCV infection. Supplemental molecular testing will be automatically performed to determine current infection status in accordance with current CDC screening recommendations. Interpretive data was last revised on 2019. Testing performed by: [facility], [address] [place] [address]., [id number] Blood 10/26/2024 8:21 AM CDT 10/26/2024 12:25 PM CDT us Yareli Singh MD LAB MICROBIOLOGY - GENERAL ORDERABLES Final Result Performing Organization Address City/[facility]/ZIP Co de Phone Number [place] [address] [address] [place] [employer] [address] * Hepatitis B core antibody, total Blood (10/26/2024 8:21 AM CDT) Pathologist [facility] Hep B core IgG/IgM Nonreactive Nonreactive Comment:Testing performed by : [facility], [address] [place] [address]., [address] Blood 10/26/2024 8:21 AM CDT 10/26/2024 2:26 PM CDT us Yareli Singh MD LAB MICROBIOLOGY - GENERAL ORDERABLES Final Result [place] [address] [address] [place] [address] * Hepatitis B surface antibody (immune status) Blood (10/26/2024 8:21 AM CDT) HBsAb (immune status) Nonreactive Comment: Interpretive Data Nonreactive: This result is consistent with a lack of immunity to Hepatitis B Virus when used in the setting of routine screening. Equivocal: The immune status of the individual should be further assessed, if appropriate, after consideration of clinical status, risk factors, and additional diagnostic information. Reactive: This result is consistent with immunity to Hepatitis B Virus when used in the setting of routine screening. Current interpretive data was last revised on 19. Testing performed by: [facility], [address] [place] [address]., [address] Blood 10/26/2024 8:21 AM CDT 10/26/2024 12:25 PM CDT us Yareli Singh MD LAB MICROBIOLOGY - GENERAL ORDERABLES Final Result Performing Organization Address City/[facility]/ZIP Co de Phone Number [place] [phone] [facility] [place] [address] * Hepatitis B Surface Antigen Blood (10/26/2024 8:21 AM CDT) Pathologist [facility] HepBsAg Nonreactive Nonreactive Comment:Testing performed by : [facility], [address] [place] [address]., [address] Blood 10/26/2024 8:21 AM CDT 10/26/2024 12:25 PM CDT Yareli Singh MD LAB MICROBIOLOGY - GENERAL ORDERABLES Final Result Performing Organization Address City/[facility]/ZIP Co de Phone Number F[place] [facility] [place] [address] * (ABNORMAL) Comprehensive metabolic panel (10/26/2024 8:21 AM CDT) Sodium 142 135 - 145 mmol/L Comment:Testing performed by : [address] [address] Potassium, pl 3.7 3.3 - 4.9 mmol/L FABIOLA Comment:Testing performed by : [address] [address] Chloride 108 97 - 110 mmol/L FABIOLA Comment:Testing performed by : [address] [address] CO2 23 22 - 32 mmol/L CERNER CH Comment:Testing performed by : [address] [address] Anion gap 11 2 - 15 mmol/L CERNER CH Comment:Testing performed by : [address] [address] BUN 28(H) 6 - 25 mg/dL CERNER CH Comment:Testing performed by : [address] [address] Creatinine 0.78 0.60 - 1.10 mg/dL CERNER CH Comment: Icteric sample, test results may be affected. Testing performed by: [address], [address] Glucose 89 70 - 199 mg/dL CERNER CH Comment: Interpretive Data Fasting glucose >/= 126 mg/dl is diagnostic for diabetes. Fasting is defined as no caloric intake for at least 8 hours. Fasting glucose between 100 mg/dl to 125 mg/dl is diagnostic of prediabetes. In a patient with classic symptoms of hyperglycemia or hyperglycemic crisis, a random glucose >/= 200 mg/dl is diagnostic for diabetes. In the absence of unequivocal hyperglycemia, results should be confirmed by repeat testing. The classification and Diagnosis of Diabetes Diabetes Care 202; 46: S19-S40. Current interpretive data was last revised 2022. Testing performed by: [facility], [address] [place] [address]., [address] Calcium 9.2 8.5 - 10.3 mg/dL CERNER CH Comment:Testing performed by : [address] [address] Bilirubin, total 0.8 0.1 - 1.2 mg/dL CERNER CH Comment:Testing performed by : [address] [address] Protein, pl 6.5 6.5 - 8.5 g/dL CERNER CH Comment:Testing performed by : [address] [address] Albumin 4.0 3.5 - 5.0 g/dL CERNER CH Comment:Testing performed by : [address] [address] Alk phos 86 40 - 130 Units/L CERNER Comment:Testing performed by : [facility], [address] [place] [address]., [address] ALT 19 7 - 45 Units/L FABIOLA Comment:Testing performed by : 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 Current interpretive data was last revised 2018. Testing performed by: [address] [address] Creatinine Ur 19.8 mg/dL FABIOLA Comment: Interpretive Data No reference range established. Current interpretive data was last revised 2018. Testing performed by: [address] [address] Albumin Creatinine Ratio, Ur See Comment 1 - 29 FABIOLA Comment: Unable to calculate Testing performed by: [address] [address] Urine 08/03/2024 6:49 PM OPERATOR AND TRUCK DRIVER 08/03/2024 6:49 PM OPERATOR AND TRUCK DRIVER us Yareli Singh MD LAB URINE ORDERABLES Final Result Performing Organization Address [facility] Co de Phone Number F[place] [address] [facility] [place] [address] * Dexa Axial Skeleton Bone Density 1 or 2 Site (03/13/2024 8:27 AM CDT) Anatomical Region Laterality Modality Body N/A Other 03/13/2024 10:0 3 PM CDT Narrative 03/13/2024 10:17 PM CDT EXAM DESCRIPTION: DEXA AXIAL SKELETON BONE DENSITY 1 OR MORE SITES REASON FOR STUDY: 78 y/o year old F with given history of: 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 FINDINGS: AP LUMBAR SPINE L1-L4: Total BMD is 0.932 g/cm2 T-score is -1.0 LEFT HIP: Total BMD is 0.689 g/cm2 T-score is -2.1 Femoral neck BMD is -0.631 g/cm2 T-score is -2.0 FRAX: 10 year risk for a major osteoporotic fracture is 15 %, 10 year risk for a hip fracture is 4.3 % IMPRESSION: Low Bone Mass. REFERENCE: Bone mineral density: T-Score: Normal (T-score above or = -1.0) Low bone mass (T-score between -1.0 and -2.5) replaces the previously used term osteopenia Osteoporosis (T-score = or below -2.5) Z-Score: Within the expected range for age (Z-score above -2.0) Below the expected range for age (Z-score is -2.0 or below) Please see below follow up recommendations. Medical evaluation for secondary causes of low bone mineral density may be appropriate. FRAX is a World Health Organization validated fracture risk assessment tool that calculates a person's 10 year probability of a major osteoporosis related fracture and hip fracture. According to the National Osteoporosis Foundation guidelines, postmenopausal women and men age 50 or older with low bone mass and a 10 year probability of a major osteoporosis related fracture = or greater than 20% or a 10 year probability of a hip fracture = or greater than 3% should be considered for pharmacological treatment for the prevention of osteoporosis. For further information, including treatment recommendations, please refer to the 2019 ISCD Official Positions (http://www.iscd.org) and the NOF's Clinician's Guide to Prevention and Treatment of Osteoporosis (http://www.nof.org/professionals/clinical-guidelines) THIS IS AN ELECTRONICALLY VERIFIED FINAL REPORT 03/13/2024 10:17 PM - Electronically signed by Gumaro Mayo M.D. 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 FINDINGS: AP LUMBAR SPINE L1-L4: Total BMD is 0.932 g/cm2 T-score is -1.0 LEFT HIP: Total BMD is 0.689 g/cm2 T-score is -2.1 Femoral neck BMD is -0.631 g/cm2 T-score is -2.0 FRAX: 10 year risk for a major osteoporotic fracture is 15 %, 10 year risk for ahip fracture is 4.3 % IMPRESSION: Low Bone Mass. REFERENCE: Bone mineral density: T-Score: Normal (T-score above or = -1.0) Low bone mass (T-score between -1.0 and -2.5) replaces thepreviously used term osteopenia Osteoporosis (T-score = or below -2.5) Z-Score: Within the expected range for age (Z-score above -2.0) Below the expected range for age (Z-score is -2.0 or below) Please see below follow up recommendations. Medical evaluation forsecondary causes of low bone mineral density may be appropriate. FRAX is a World Health Organization validated fracture risk assessmenttool that calculates a person's 10 year probability of a major osteoporosisrelated fracture and hip fracture. According to the National OsteoporosisFoundation guidelines, postmenopausal women and men age 50 or older with low bonemass and a 10 year probability of a major osteoporosis related fracture = or greater than 20% or a 10 year probability of a hip fracture = or greaterthan 3% should be considered for pharmacological treatment for the preventionof osteoporosis. For further information, including treatment recommendations, please referto the 2019 ISCD Official Positions (http://www.iscd.org) and the NOF's Clinician's Guide to Prevention and Treatment of Osteoporosis (http://www.nof.org/professionals/clinical-guidelines) THIS IS AN ELECTRONICALLY VERIFIED FINAL REPORT 03/13/2024 10:17 PM - Electronically signed by Gumaro Mayo M.D. MF: [email or web address] Report ID: [id number] Reading Location: [place] [address] Yareli Singh MD IMG DXA PROCEDURES Final R esult * COLONOSCOPY (02/23/2020 7:16 AM CDT) Anatomical Region Laterality Modality Other Narrative Procedure Note Juan Carlos Pop MD - 02/23/2020 7:16 AM CDT [facility] Patient Name: Odette Trujillo Procedure Date: 02/23/2020 7:16 AM Date of : 1945 Admit Type: Outpatient Age: 74 Gender: Female Attending MD: Juan Carlos Pop M.D. Room: [facility] ENDOSCOPY ROOM 2 Note Status: Finalized Patient Profile: Refer to note in patient chart for documentation of history and physical. Procedure: Colonoscopy Indications: Screening for colorectal malignant neoplasm Referring MD: Yareli Singh M.D. Providers: Juan Carlos Pop M.D. Impression: - Hemorrhoids found on perianal exam. - Diverticulosis in the sigmoid colon and in the transverse colon. - The examination was otherwise normal. - No specimens collected. Recommendation: - Discharge patient to home. - Resume previous diet. - Continue present medications. - Repeat colonoscopy in 10 years for screeningpurposes. - Return to primary care physician as previously scheduled. Medicines: Propofol per Anesthesia Complications: No immediate complications. Estimated Blood Loss: Estimated blood loss: none. Procedure: Pre-Anesthesia Assessment: - This assessment was completed [Time of Assessment] prior to the administration of sedation. The benefits, risks and alternatives of theprocedure and sedation were discussed and informed consent was obtained. All questions were answered. Please referto the signed informed consent document in the medical record. The bowel preparation used was Miralax. The bowel preparation used was bisacodyl tablets. Bowel prep was administered using a single dose. The scope was passed under direct vision. The Pediatric Colonoscope PCF-H190L [id number] was introducedthrough the anus and advanced to the the cecum, identifiedby appendiceal orifice and ileocecal valve. The colonoscopy was performed without difficulty. The patient tolerated the procedure well. The quality of the bowel preparation was excellent. Findings: Hemorrhoids were found on perianal exam. Multiple small and large-mouthed diverticula were found in thesigmoid colon and transverse colon. The exam was otherwise without abnormality. Electronically signed by Juan Carlos Pop M.D. Juan Carlos Pop M.D. 02/23/2020 8:02:11 AM Number of Addenda: 0 Note Initiated On: 02/23/2020 7:16 AM Procedure Code(s): --- Professional --- G0121, Colorectal cancer screening; colonoscopy on individual not meeting criteria for high risk Diagnosis Code(s): --- Professional --- K57.30, Diverticulosis of large intestine without perforation orabscess without bleeding K64.9, Unspecified hemorrhoids Z12.11, Encounter for screening for malignant neoplasm of colon CPT copyright 2017 [employer] [place] [employer]. All rights reserved. The codes documented in this report are preliminary and upon certified professional coder reviewmay be revised to meet current compliance requirements. 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 TRUCK DRIVER Yareli Singh MD LAB BLOOD ORDERABLES Final Result [facility]ORICAL RESULTS from Last 3 Months or Most Recently Relevant to Health Maintenance Insurance [facility] MEDICARE ADVANTAGE T MEDICARE T MEDICARE AET MEDICARE Advance Directives For more information, please contact: [phone] Documents on File Type Date Recorded 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 Hand Expl anation ADVANCE DIRECTIVE 08/28/2019 DNR ADVANCE DIRECTIVE 01/17/2009 POWER OF A TTORNEY ADVANCE DIRECTIVE 01/17/2009 POWER OF A TTORNEY-MEDICAL ADVANCE DIRECTIVE 10/11/1994 LIVING DENIS L * Full Code (Latest Code Status on File) Date Activated Date Inactivated Comments 02/23/2020 7:37 AM 02/23/2020 1:00 PM * Full Code Date Activated Date Inactivated Comments 02/23/2020 7:36 AM 02/23/2020 7:37 AM Care Teams Load Builder Relationship Specialty Start Date End Date Yareli Singh MD PCP - General 10/12/16 Robert Morrissey MD [address] [facility] [place] [address] Neurology 01/04/17 Mars Parnell MD [facility] [facility] [address] [place] [address] Orthopedic Surgery 01/04/17 She Castellon MD [facility] [facility] [place] [address] Dermatology 01/04/17 Edmund Duran MD [address] [place] [address] Ophthalmology 01/04/17 Miguel Joe MD [address] [place] [address] Otolaryngology 01/04/17 Alessia Zaldivar MD [address] [place] [address] Consulting Physician Diagnostic Radiology 03/02/24 Tio Irving MD [address] [address] Referring Physician General Surgery 03/02/24
--- OUTSIDE RECORDS SUMMARY | 2025-01-12 07:13 | XMS_ITS | Encounter Summary ---
Author Organization [facility] Healthcare Address [address] [place] [address] Care Team Providers Care Customer Trainer Name Role Phone Yareli Singh MD Primary Care Provider [phone] Robert Morrissey MD Unavailable [phone] Mars Martinez MD Unavailable [phone] She Castellon MD Unavailable [phone] Edmund Duran MD Unavailable [phone] Benjamín Stinson MD Unavailable Fredy Wang MD Unavailable [phone] Alessia Zaldivar MD Unavailable Tio Irving MD Unavailable Reason for Visit * Reason Onset Date Comments Scheduling Appointments 11/16/2020 Reminder Mammogram Appt Encounter Details Date Type Department Care Team (Late st Contact Info) Description 11/16/2020 Telephone [facility] [address] [place] [address] Sarika Franco RT Scheduling Appointments (Reminder Mammogram Appt) Social History Tobacco Use Types Packs/Day Years Used Date Smoking Tobacco: Never Smokeless Tobacco: Never Alcohol Use Standard Drinks/Week Comments No 0 (1 standard drink = 0.6 oz pur e alcohol) PHQ-2 Answer Date Recorded PHQ-2 Score 0 08/28/2019 Comments No Sex and Gender Information Value Date Recorded Sex Assigned at Not on file Legal Sex 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 Gender Identity Not on file Sexual Orientation Not on file Occupation Industry Job Start Date Job End Date retired Not on file Not on file Not on file documented as of this encounter Plan of Treatment Not on file documented as of this encounter Visit Diagnoses Not on filedocumented in this encounter Additional Health Concerns Infection Onset Date Last Indicated Resolved Time COVID: Suspected 05/29/2021 05/29/2021 05/29/2021 2:15 PM 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 documented as of this encounter Care Teams Customer Trainer Relationship Specialty Start Date End Date Yareli Singh MD PCP - General 10/12/16 Robert Morrissey MD [address] [place] [address] Neurology 01/04/17 Mars Martinez MD [address] [place] [address] [address] [place] [address] Orthopedic Surgery 01/04/17 She Castellon MD [facility] [place] [address] Dermatology 01/04/17 Edmund Duran MD [address] [place] [address] Ophthalmology 01/04/17 Benjamín Stinson MD [address] [place] [address] Otolaryngology 01/04/17 Fredy Wang MD [address] [place] [address] [place] [address] Consulting Physician Endocrinology 05/21/22 03/01/24 Alessia Zaldivar MD [address] [place] [address] Consulting Physician Diagnostic Radiology 03/02/24 Tio Irving MD [address] [address] Referring Physician General Surgery 03/02/24 documented as of this encounter
--- OUTSIDE RECORDS SUMMARY | 2025-01-12 07:13 | XMS_ITS | Clinical Summary ---
Author Organization [facility] Address [address] [place] [address] Care Team Providers Care Science Technician Name Role Phone Heidi Sinhg MD Primary Care Provider [phone] Source Comments [facility],non-owned Affiliates and Associated Physician Practices is amultiple site organization consisting of ambulatory clinics and hospital sitesin [place], [place], [place] and [place]. This disclosure is being madepursuant to the Care Everywhere program and may not contain all information available regarding this patient. Last updated 18.[facility] Allergies Active Allergy Reactions Criticality Noted Date Comments Adhesive Sensitivity Rash Medium 12/10/2014 Lac Bovis Diarrhea,Other Low 04/06/2019 Reaction: bloating, diarrhea, Wheat Bran Shortness of Breath, GI Discomfort High 04/06/2019 Reaction: sob, stomach upset, Medications * Be aware that medications may not be up to date on this document. Alwaysverify current medications with the patient. albuterol HFA (PROVENTIL;VENT FERNANDO;PROAIR) 108 (90 Base) MCG/ACT inhaler Inhale 2 puffs by mouth once daily 9 Active meclizine (ANTIVERT) 25 MG tablet Take 25 mg by mouth 9 Active meloxicam (MOBIC) 15 MG tablet 9 Active lactase (LACTAID) 3000 units tablet Indications: 1 prn for dairy intolerance Active Multiple Vitamins-Minera ls (MULTI-VITAMIN/ MINERALS) TABS Take 1 tablet by mouth once daily Active dicyclomine (BENTYL) 10 MG capsule 9 Active vitamin D3 (CHOLECALCIFERO L) 1000 UNIT capsule Indications: once daily Active Orjpu-J-Hzvwobv sidase (BEANO PO) Active Active Problems Problem Noted Date Diagnosed Date Migraine equivalent 04/24/2019 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 PARNELL SEPTEMBER 2018 Achilles tendinitis of right lower extremity Overview (04/06/2019): Overview: Calcific tendinitis found on Doppler ultrasound R [...] tendon. Ran Woods M.D. 03/27/2018 4:04 PM Vertiginous migraine 01/04/2017 Overview (04/06/2019): Overview: Assessment and Plan 1. Left superior semicircular canal dehiscence but [...] her Master Degree in Social Work from [employer]. Benjamín Stinson M.D. 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 09/14/2015 Epiretinal membrane 09/14/2015 Vitreous syneresis 09/14/2015 Dizziness and giddiness 12/10/2014 Migraine with aura and witho ut status migrainosus, not intractable 12/10/2014 Dizziness and giddiness 12/10/2014 Migraine with aura and witho ut status migrainosus, not intractable 12/10/2014 Arthritis 11/28/2013 Overview (04/06/2019): Overview: Joint pain Exercise-induced asthma 11/28/2013 Overview (04/06/2019): Overview: Exercise-induced asthma Irritable bowel syndrome 11/28/2013 Overview (04/06/2019): Overview: IBS (irritable bowel syndrome) Immunizations Immunization Administration Dates Next Due INFLUENZA VACCINE, TRIV. (AF LURIA, FLUZONE TRIVALENT; 6MO+) (IIV3) 04/14/2016,05/03/2015 INFLUENZA VACCINE 04/02/2018 INFLUENZA VACCINE, HIGH-DOSE , QUADR. (FLUZONE HIGH-DOSE QUADRIVALENT; 65Y+), 0.7 ML (HD-IIV4) 03/28/2017,04/20/2014 PNEUMOCOCCAL PPSV23 12/23/2015,07/14/2010 Pneumococcal Pcv13 Conj 11/16/2014 TDAP (7yrs+) 08/11/2009 ZOSTER VACCINE, LIVE 12/09/2008 Zoster Hzv Vacc Recombinant Inj Im 06/22/2018, Family History Medical History Relation Name Comments Arthritis - Rheumatoid Father Heart Disease Father Diabetes Mother Glaucoma Mother Heart Disease Mother Hypertension Mother Relation Name Status Comments Father Mother Social History Tobacco Use Types Packs/Day Years Used Date Smoking Tobacco: Never Smokeless Tobacco: Never Alcohol Use Standard Drinks/Week Comments No 0 (1 standard drink = 0.6 oz pur e alcohol) Comments Unknown Sex and Gender Information Value Date Recorded Sex Assigned at Not on file 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 Gender Identity Not on file Sexual Orientation Not on file Last Filed Vital Signs Vital Sign Reading Time Taken Comments Blood Pressure 167/91 04/24/2019 2:35 PM CDT Pulse 71 04/24/2019 2:35 PM CDT Temperature 36.8 C (98.3 F) 01/10/2015 11:20 AM CDT Respiratory Rate 12 01/10/2015 11:20 AM CDT Oxygen Saturation - - Inhaled Oxygen Concentration - - Weight 78.5 kg (173 lb) 04/24/2019 2:35 PM CDT Height 161.3 cm (5' 3.5) 04/24/2019 2:35 PM CDT Body Mass Index 30.16 04/24/2019 2:35 PM CDT Plan of Treatment Health Maintenance Due Date Last Done Comments DIABETES-SERUM CREATININE 1962 DIABETES-STATIN 1984 DIABETES RETINOPATHY SCREENING 04/06/2019 DIABETES-FOOT EXAM WITH MONOFILAMENT 04/06/2019 Respiratory Syncytial Virus (RSV) Vaccine Pt: or over 60 yrs (1 - 1-dose 75+ series) 2019 DTAP/TDAP/TD VACCINES (2 - Td or Tdap) 08/11/2019 08/11/2009 COVID-19 VACCINE (2023- season) 2024 04/30/2022, 10/18/2021, 05/19/2021, Additional history exists DEPRESSION SCREENING 07/15/2024 DIABETES - URINE PROTEIN SCREENING 07/15/2024 MEDICARE AWV CALENDAR YEAR 2024 DIABETES-HGB A1C 01/31/2025 08/03/2024 PNEUMOCOCCAL VACCINE 50+ Completed 016, 11/16/2014, 07/14/2010 ZOSTER VACCINE Completed 06/22/2018, 03/16, 12/09/2008 BONE DENSITY TESTING Completed 03/13/2024 INFLUENZA VACCINE Completed 05/05/2024, , 04/02/2018, Additional history exists HEPATITIS B VACCINE Aged Out No longe r eligible based on patient's age to complete this topic HIB VACCINE Aged Out No longer eligi ble based on patient's age to complete this topic HPV VACCINE Aged Out No longer eligi ble based on patient's age to complete this topic MENINGOCOCCAL (Group B) VACCINE SHARED DECISION-MAKING Aged Out No longer eligible based on patient's age to complete this topic MENINGOCOCCAL GROUPS A/C/Y/W VACCINE Aged Out No longer eligible based on patient's age to complete this topic Insurance [facility] MEDICARE [place] [id number] Care Teams Science Technician Relationship Specialty Start Date End Date Heidi Singh MD [address] [address] PCP - General 11/09/14
--- OUTSIDE RECORDS SUMMARY | 2025-01-12 07:13 | XMS_ITS | Clinical Summary ---
Author Organization [facility] Address [address] [place] [address] Phone Care Team Providers Care Fire Coordinator Name Role Phone Yareli Singh MD Primary Care Provider [phone] Tio Irving MD Unavailable Allergies Active Allergy Reactions Criticality Noted Date Comments Brimonidine Itching Low 11/27/2022 Metformin Diarrhea Low 03/04/2020 Milk (Cow) Diarrhea,Other (see Comments) Low 04/06/2019 Reaction: bloating, diarrhea, Reaction: bloating, diarrhea, Semaglutide Nausea Low 03/29/2021 Nausea, GERD, GERD associated wheezing Wheat Other (see Comments),Shortness of Breath High 04/06/2019 Reaction: sob, stomach upset, Reaction: sob, stomach upset, Medications Ogwua-C-Mxvshvs sidase (BEANO PO)Indications: 2 prn Indications: 2 prn A ctive olmesartan-hydr ochlorothiazide (BENICAR HCT) 20-12.5 MG TabletIndicatio ns:1/2 tab daily Indications: 1/2 tab daily Active Cholecalciferol ([employer] VITAMIN D3) 1000 UNIT CapsuleIndicati ons:once daily Indications: once daily Active dicyclomine (BENTYL) 10 MG CapsuleIndicati ons:take as needed for IBS Indications: take as needed for IBS Active FLUTICASONE PROPIONATE, NASAL, NAIndications:1 spray per day 16 g. Indications: 1 spray per day Active lactase (LACTAID) 3000 UNIT TabletIndicatio ns:1 prn for dairy intolerance Indications: 1 prn for dairy intolerance Active Nasal Moisturizer Combination (OCEAN COMPLETE SINUS RINSE) Aerosol SolutionIndicat ions:once daily Indications: once daily Active Clindamycin-Issac tinoin (ZIANA) 1.2-0.025 % GelIndications: apply to face Indications: apply to face Active topiramate (TOPAMAX) 25 MG Tablet Take 25 mg by mouth. 08/26/19 24 Active Mounjaro 2.5 MG/0.5ML Solution Pen-injector INJECT 0.5 ML (2.5 MG) SUBCUTANEOUSLY ONE TIME PER WEEK 08/27/19 Active propranolol (INDERAL) 20 MG Tablet Take 20 mg by mouth. 08/26/19 24 Active pancrelipase, lipase-protease -amylase, (CREON 29977) [address] Particles Take 3 Capsules by mouth. 08/26/19 Active famotidine (Pepcid) 20 MG Tablet Take 20 mg by mouth 2 times daily. Active Abaloparatide (Tymlos) 3120 MCG/1.56ML Solution Pen-injector by Subcutaneous route. Active Active Problems Problem Noted Date Diagnosed Date Peripheral vertigo Sensorineural hearing loss Fistula, labyrinthine, semicircular canal Encounters Date Type Department Care Team Description 12/24/2024 Telephone [facility] Endocrinology [facility] [address] [place] [address] Tio Irving MD Results 11/18/2024 8:00 AM CDT Office Visit [facility] Endocrinology [facility] [address] [place] [address] Tio Irving MD Thyroid nodule (Primary Dx) Discharge Disposition: Discharged to home or Selfcare 11/16/2024 Travel from Last 3 Months Immunizations Immunization Administration Dates Next Due Covid-19, Mrna, Lnp-s, Pf, 3 0 Mcg/0.3 Ml Dose, Brice-sucrose ([employer] morrow top) 10/18/2021 Influenza Vaccine,unspecifie d Formulation 04/02/2018,03/28/2017,04/20/2014 Influenza, High-dose, Quadrivalent 04/17,04/23/2022,04/06/2021,2019,03/28/2017,04/20/2014 Influenza, Seasonal, Injecta ble, Undefined 04/14/2016,05/03/2015 Influenza, high-dose, trivalent, PF 08/2018,03/27/2017,03/29/2016,2013 Pneumococcal Vaccine - 13 Valent 11/16/2014 Pneumococcal Vaccine Adult - 23 Valent 12/23/2015,07/14/2010 RSV, Recombinant, Protein Bar bunit Rsvpref, Adjuvant Recon (Arexvy) 06/11/2023 TDAP Vaccine 08/29/2019,08/11/2009 Zoster Vaccine Recombinant 06/22/2018,04/07/2018 Zoster Vaccine, live 12/09/2008 Social History Tobacco Use Types Packs/Day Years Used Date Smoking Tobacco: Never Assessed Tobacco Cessation:Counseling Given: Not Answered Alcohol Use Standard Drinks/Week Comments Never 0 (1 standard drink = 0.6 oz pur e alcohol) Sexually Active Control Partners Comments Not Currently Male Comments No Sex and Gender Information Value Date Recorded Sex Assigned at Not on file Legal Sex Female 12:21 AM CDT Gender Identity Not on file Sexual Orientation Not on file Last Filed Vital Signs Vital Sign Reading Time Taken Comments Blood Pressure 124/82 11/18/2024 8:03 AM CDT Pulse 76 11/18/2024 8:03 AM CDT Temperature 36.3 C (97.3 F) 11/18/2024 8:03 AM CDT Respiratory Rate 22 11/18/2024 8:03 AM CDT Oxygen Saturation 98% 11/18/2024 8:03 AM CDT Inhaled Oxygen Concentration - - Weight 72.3 kg (159 lb 6.4 oz) 11/18/2024 8:03 A M CDT Height - - Body Mass Index - - Plan of Treatment Upcoming Encounters Date Type Department Care Team (Late st Contact Info) Description 11/17/2025 8:00 AM CDT Office Visit [facility] - Endocrinology - [address] [place] [address] Tio Irving MD [address] [address] Health Maintenance Due Date Last Done Comments Hepatitis C Virus (HCV) Screening 1945 SARS-COV-2 Immunization ( season) 2024 08/27/2023, 04/30/2022, 10/18/2021, Additional history exists DEXA Bone Density 03/13/2026 03/13/2024, 11/09/2021 Td Immunization Every 10 Years (Adults With 1 Tdap) 08/29/2029 08/29/2019, 08/11/2009 Pneumococcal Immunization (50+ years) Completed 12/23/2015, 11/16/2014, 07/14/2010 Pneumococcal Immunization Combined Discontinued 12/23/2015, 11/16/2014, 07/14/2010 Zoster Immunization Completed 06/22/2018, 04/07/2018, 12/09/2008 DTaP/Tdap/Td Immunization Discontinued 08/29/2019, TdaP Immunization Discontinued 08/29/2019, 08/11/2009 Colonoscopy Discontinued 02/23/2020 Colorectal Cancer Screening Discontinued Respiratory Syncytial Virus (RSV) Immunization (Adult) Completed 06/11/2023 Influenza Immunization Completed , 04/17/2023, 04/23/2022, Additional history exists Cologuard Discontinued Hepatitis B Immunization Aged Out No longer eligible based on patient's age to complete this topic Human Papillomavirus (HPV) Immunization Aged Out No longer eligible based on patient's age to complete this topic Immunochemical Fecal Occult Blood Discontinued Meningococcal Immunization (ACWY) Aged Out No longer eligible based on patient's age to complete this topic Rotavirus Immunization Aged Out No lo nger eligible based on patient's age to complete this topic Insurance MEDICARE C [employer]ET[employer] Care Teams Fire Coordinator Relationship Specialty Start Date End Date Yareli Singh MD [address] [facility] [place] [address] PCP - General Internal Medicine 07/24/17 Tio Irving MD [address] [facility] [address] [place] [address] Consulting Physician Endocrinology 11/05/23
--- OUTSIDE RECORDS SUMMARY | 2025-01-12 07:13 | XMS_ITS | Encounter Summary ---
Author Organization [facility] Healthcare Address [address] [place] [address] Care Team Providers Care Wire Spring Relay Adjuster Name Role Phone Yareli Singh MD Primary Care Provider + [phone] Robert Morrissey MD Unavailable [phone] Kiesha Martinez MD Unavailable [phone] She Castellon MD Unavailable [phone] Edmund Duran MD Unavailable [phone] Benjamín Stinson MD Unavailable [phone] Alessia Zaldivar MD Unavailable Tio Irving MD Unavailable Reason for Referral * Consultation (Routine) - Closed Specialty Diagnoses / Procedures Referred By Contac t Referred To Contact Orthopedic Surgery Diagnoses Arthritis of right knee Yareli Singh MD [address] [place] [address] Phone: tel: fax: Kiesha Martinez MD [address] [facility] [address] [place] [address] Phone: tel:[phone] fax: Referral ID Status Reason Start Date Expiration Date V isits Requested Visits Authorized [id number] Closed Specialty Services Required 11/27/2024 12/27/2025 12 12 Question Answer Please select the performing region: External Order [171] To provider: KIESHA MARTINEZ [[id number]] # of visits: 12 Comments Refer to KIESHA Moreno for right knee arthritis evaluate for possible knee replacement and advise, also review range motion in her previously operated left shoulder, Please contact patient to schedule an appointment. 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 Gender Identity Not on file Sexual Orientation Not on file Occupation Industry Job Start Date Job End Date retired Not on file Not on file Not on file documented as of this encounter Plan of Treatment Scheduled Referrals Name Type Priority Associated Diagnoses Order Schedule Ambulatory referral to Orthopedic Surgery Outpatient Referral Routine Arthritis of right knee Expected: 11/27/2024 (Approximate), Expires: 11/27/2025 documented as of this encounter Visit Diagnoses Diagnosis Arthritis of right knee- Primary documented in this encounter Care Teams Wire Spring Relay Adjuster Relationship Specialty Start Date End Date Yareli Singh MD PCP - General 10/12/16 Robert [place]sey MD [facility] [place] [address] Neurology 01/04/17 Kiesha Martinez MD [facility] [address] Orthopedic Surgery 01/04/17 She Castellon MD [facility] [place] [address] Dermatology 01/04/17 Edmund Duran MD [address] [place] [address] Ophthalmology 01/04/17 Benjamín Stinson MD [address] [place] [address] Otolaryngology 01/04/17 Alessia Zaldivar MD [address] [place] [address] Consulting Physician Diagnostic Radiology 03/02/24 Tio Irving MD [address] [facility] [place] [address] Referring Physician General Surgery 03/02/24 documented as of this encounter
--- OUTSIDE RECORDS SUMMARY | 2025-01-12 07:13 | XMS_ITS | Clinical Summary ---
Author Organization [facility] [address] Address [address] [place] [address] Phone Care Team Providers Care Gunner'S Mate G Name Role Phone Yareli Singh MD Primary Care Provider [phone] Robert Morrissey MD Unavailable [phone] Mars Parnell MD Unavailable [phone] She Castellon MD Unavailable [phone] Edmund Duran MD Unavailable [phone] Miguel Joe MD Unavailable [phone] Alessia Zaldivar MD Unavailable Tio Irving MD Unavailable Allergies Active Allergy [...] sob, stomach upset, Medications vit A,C and W-yrvaza-itlcjpoq (OCUVITE with LUTEIN) 1,000 unit-200 mg-60 unit-2 mg tabletIndications:V itamin Deficiency Prevention 1 tablet Active ZzKj-JgSAS4-vgtlnsz n sod-aloe 0.9 % gel Apply to [...] weeks when having flares 30 g 1 024 Active Additional Information Patient not taking.Reported on 01/08/2025 dicyclomine (BENTYL) 10 mg capsuleIndications: Irritable Bowel Syndrome Take 1 capsule (10 mg total) by mouth daily as needed (Abdominal discomfort) 60 capsule 1 024 Active cholecalciferol (VITAMIN D-3) 50,000 unit capsuleIndications: Osteoporosis, idiopathic,Vitamin D deficiency Take 1 capsule (50,000 Units total) by mouth once a week 024 Active Additional Information Patient not taking.Reported on 01/08/2025 albuterol HFA (PROVENTIL HFA,VENTOLIN HFA,PROAIR HFA) 90 mcg/actuation inhalerIndications: Exercise-induced asthma Inhale 2 puffs every 6 (six) hours as needed for wheezing 1 each 5 025 Active busPIRone (BUSPAR) 15 mg tabletIndications:M ood disorder Take 1 tablet (15 mg total) by mouth 2 (two) times a day 180 tablet 2 025 Active Additional Information Patient taking differently:15 mg oral 2 times daily,Once a day, Reported on 01/08/2025 famotidine (PEPCID) 20 mg tabletIndications:C hronic GERD Take 1 tablet (20 mg total) by mouth 2 (two) times a day as needed for heartburn or indigestion 180 tablet 2 025 Active pancrelipase (CREON) 24,000 units of lipase capsuleIndications: exocrine pancreatic insufficiency Take 3 capsules by mouth 3 (three) times a day with meals Three at meals and 1 with snacks Max 12 capsules daily 1100 capsule 3 025 Active abaloparatide (Tymlos) 80 mcg (3,120 mcg/1.56 mL) pen injectorIndications :Osteoporosis, idiopathic Inject 0.04 mL (80 mcg total) under the skin daily before breakfast 1.56 mL 11 025 Active topiramate (TOPAMAX) 25 mg tabletIndications:V ertiginous [...] passing of her son 10/10/2024 Current meds: Anne PHQ today = 2 Requesting Xanax. States she has taken Xanax in the past with situational anxiety. Today's Plan: Continue Anne Will send request for Xanax to Dr. [...] 2.2 Assessment & Plan (08/09/2024 6:30 PM OVER SHORT AND DAMAGE CLERK): Chronic, confirmed on DEXA 03/2024. Taking Tymlos without adverse effects. Continue same. Recheck BMP, and vitamin D today. Abnormality of left breast on screening mammogra m 02/24/2024 Overview (02/27/2024): Exam Ended: 02/24/24 12:18 = BI-RADS: 4 - Suspicious for malignancy. Biopsy is recommended.Alessia Zaldivar M.D: . Needle biopsy 02/27/2024 = Vitamin D deficiency 07/09/2023 Assessment & Plan (07/09/2023 7:16 PM OVER SHORT AND DAMAGE CLERK): Will re-check serum level today in office [...] classes Assessment & Plan (05/21/2022 8:51 PM OVER SHORT AND DAMAGE CLERK): Pre-perimetric with full Cesar visual field (HVF) Agrees to proceed with SLT both eyes (OU) Thyroid nodule 04/06/2021 Overview (11/03/2024): Care transferred to at [facility] 2023 He will be following thyroid sonogram [...] - Electronically signed by Gumaro Luque M.D. Thyroid biopsy by Dr. Wang (-) cytology April 2021 Thyroid US 11/2022: IMPRESSION: No change in size or morphology left lobe lesion. Assessment & Plan (07/09/2023 7:16 PM OVER SHORT AND DAMAGE CLERK): Repeat US in november showed unchanged nodule [...] months. Assessment & Plan (08/09/2024 6:27 PM OVER SHORT AND DAMAGE CLERK): Chronic, controlled. Last HbA1c last week was [...] before. Assessment & Plan (09/20/2023 10:18 AM OVER SHORT AND DAMAGE CLERK): Last HbA1c in August was 6.2. no [...] her Master Degree in Social Work from [employer]. Miguel Joe M.D. [employer] Department of Otolaryngology - Head and Neck Surgery Chief, Otologic and Neurotologic Surgery Assessment & Plan (08/09/2024 6:25 PM OVER SHORT AND DAMAGE CLERK): Controlled on Topamax nightly and propranolol BID. [...] Cardiology Assessment & Plan (08/09/2024 6:24 PM OVER SHORT AND DAMAGE CLERK): Chronic, at goal. BP stable in office [...] diet. Assessment & Plan (09/20/2023 10:15 AM OVER SHORT AND DAMAGE CLERK): BP stable in office today on current therapy. No acute findings on exam. Continue current regimen and low salt diet. Assessment & Plan (07/09/2023 7:14 PM OVER SHORT AND DAMAGE CLERK): BP borderline in office today at 140/78 [...] last week unremarkable. Refill sent to pharmacy. Deuel diet. Resolved Problems Problem Noted Date Diagnosed [...] 08/26/2023 Assessment & Plan (07/09/2023 7:21 PM OVER SHORT AND DAMAGE CLERK): For several months but worse in the [...] surgery Assessment & Plan (05/21/2022 8:50 PM OVER SHORT AND DAMAGE CLERK): Tmax low 20s with modest response to [...] 023 Assessment & Plan (05/29/2021 3:02 PM OVER SHORT AND DAMAGE CLERK): Patient presents with reports of rhinorrhea that [...] 08/13/2022 Assessment & Plan (05/29/2021 3:00 PM OVER SHORT AND DAMAGE CLERK): Patient has c/o sore throat most likely viral in nature and secondary to her post nasal drip. On exam mild erythema noted. No exudate present. She had rapid test for strep that was negative. Symptom management was encouraged. Special screening for malign ant neoplasms, colon 01/07/2020 08/13/2022 Overview (01/07/2020): Added automatically from request for surgery [id number] Encounter for screening colonoscopy 09/01/2019 08/11/2021 Overview (09/01/2019): Added automatically from request for surgery [id number] Achilles tendinitis of right lower extremity 8 [...] by gianfranco was Followed by MIGUEL JOE [[id number]]@ [facility] Vitreous syneresis 09/14/2015 Epiretinal membrane (ERM) of right eye 09/14/2015 08/26/2023 Assessment & Plan (05/06/2023 2:14 PM CDT): Mild, not visually significant Photopsia 08/25/2015 01/08/2018 Adiposity 06/03/2015 01/04/2017 Overview (10/18/2016): Obesity (BMI 30.0-34.9) Arthritis 11/28/2013 08/26/2023 Overview (10/18/2016): Joint pain Assessment & Plan (02/11/2023 2:49 PM CDT): Stable on meloxicam at current, will refill. Encounters Date Type Department Care Team Description 01/11/2025 Results Follow-Up [facility] [address] [place] [address] Cathryn Bryant NP Hemoglobin A1c, CBC with auto differential, Basic metabolic panel, Additional followed-up results: 3 01/08/2025 11:00 AM CDT Lab [facility] [address] [place] [address] HTN (hypertension), benign; Prediabetes; Osteoporosis, idiopathic 01/08/2025 10:00 AM CDT [facility] [address] [place] [address] Cathryn Bryant NP Pre-op evaluation (Primary Dx); HTN (hypertension), benign; Prediabetes 12/09/2024 3:18 PM CDT - 12/09/2024 11:59 PM CDT Hospital Encounter [facility] [address] [place] [address] Right knee pain, unspecified chronicity Discharge Disposition: Discharge to home or self care 12/09/2024 3:17 PM CDT - 12/09/2024 11:59 PM CDT Hospital Encounter [facility] [address] [place] [address] Nontoxic single thyroid nodule Discharge Disposition: Discharge to home or self care 11/27/2024 Telephone [facility] [address] [place] [address] Yareli Singh MD 11/27/2024 ACO Medication Access [facility] Care Organization [address] [place] [address] Maria Dolores Kramer CPhT 11/23/2024 Telephone [facility] [address] [place] [address] Teresa Joseph Chart Review ([employer] med adherence) 11/10/2024 Telephone [facility] [address] [place] [address] Yareli Singh MD [facility] 11/03/2024 Telephone [facility] [address] [place] [address] Yareli Singh MD Endrocrinology 11/02/2024 1:00 PM CDT Office Visit [facility] [address] [place] [address] Yareli Singh MD Annual physical exam (Primary [...] pain without sciatica, unspecified chronicity; Immunization counseling 11/02/2024 Telephone [facility] [address] [place] [address] Yareli Singh MD Mounjaro 10/26/2024 8:10 AM CDT Lab [facility] [address] [place] [phone] Need for hepatitis B screening test; Encounter for hepatitis C screening test for low risk patient; 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) 10/26/2024 Results Follow-Up [facility] [address] [place] [address] Yareli Singh MD Hepatitis B core antibody, total Blood, Hepatitis B surface antibody (immune status) Blood, Hepatitis B Surface Antigen Blood, Additional followed-up results: 3 10/23/2024 Telephone [facility] [address] [place] [address] Naima Kimbrough RN 10/19/2024 Orders Only [facility] [address] [place] [address] Philip Anne NP Strain of latissimus dorsi muscle, initial encounter (Primary Dx); Acute pain of right knee 10/15/2024 Telephone [facility] Care Organization [address] [place] [address] Lauren Rhoades MA Unsuccessful Phone Call 1 (Med adherence) 10/14/2024 Orders Only [facility] [address] [place] [address] Yareli iSngh MD Grief reaction (Primary Dx) 10/13/2024 9:30 AM CDT Office Visit [facility] [address] [place] [address] Philip Anne, MIC Strain of latissimus dorsi muscle, initial encounter (Primary Dx); Situational anxiety; Hypertension associated with diabetes (HCC); Acute pain of right knee 10/13/2024 Telephone [facility] [address] [place] [address] Naima Kimbrough RN from Last 3 Months Immunizations Immunization Administration Dates Next Due COVID-19 mRNA (Assemblage) 0.3 m L (30 mcg) vaccine (12 [...] 08/29/2019,08/11/2009 ZOSTER LIVE 12/09/2008 ZOSTER Recombinant 06/22/2018,04/07/2018 Surgical History Surgery Date Site/Laterality Comments RHINOPLASTY 07/15/1982 - 07/14/1983 rhinoplasty LAPAROSCOPIC CHOLECYSTECTOMY 07/15/1997 - 07/14/1998 lap xochitl BREAST BIOPSY 07/15/1962 - 07/14/1963 Breast biopsy ENDOMETRIAL BIOPSY COLONOSCOPY 09/12/2009 - 10/12/2009 Dr. oCrnejo (-) for polyps, small cecal ulcer REPLACEMENT TOTAL KNEE 09/16/[address] Parnell successful without complications THYROID SURGERY 05/15/2021 - 06/13/2021 biopsy of nodule COLONOSCOPY 02/23/2020 (-) Dr. Pop, diverticulosis transverse and sigmoid colon, no polyps SHOULDER SURGERY 07/15/1992 - 07/14/1993 Left CHOLECYSTECTOMY 07/15/1993 - 07/14/1994 TRABECULOPLASTY 06/18/2022 Bilateral SLT; Dr. Angelica Benitez CATARACT EXTRACTION W/ INTRAOCULAR LENS IMPLANT 07/15/2016 - 07/14/2017 Bilateral PC/IOL BREAST BIOPSY 02/27/2024 Left JOINT REPLACEMENT 2016 Medical History Medical History Date Comments Allergic rhinitis Glaucoma Asthma Perforated nasal septum Fibrocystic breast Lactose intolerance Hypertension Breast injury fell and bruised left breast 01/2019 Sleep apnea does not use c-p ap GERD (gastroesophageal reflux disease) Diverticulosis Type 2 diabetes mellitus (HCC) Achilles tendinitis of right lower extremity 03/28/2018 Calcific tendinitis found on Doppler ultrasound R leg March 2018 [facility] FINDINGS: The right Achilles tendon is markedly thickened throughout the length of the tendon to the myotendinous junction. The tendon measures up to 1.2 cm in thickness in AP dimension. The tendon is diffusely heterogeneous and hyperechoic and has increased internal blood flow. There is no discrete tear. 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 Evaluated by by gianfranco was Followed by MIGUEL JOE [[id number]]@ [facility] Osteoporosis 2023 Thyroid disease 2020 Arthritis 1999 Migraines 1999 Family History Medical History Relation Name Comments Breast cancer Cousin Abdominal Aortic Aneurysm Father Santos li Alcohol abuse Father Santos Almonteenfuguillermo Heart attack Father Santos Almonteenfuguillermo Heart disease Father Santos Salcedoegenfuguillermo Blindness Maternal Grandmother Glaucoma Maternal Grandmother Corneal Transplants Mother Jennifer Diabetes Mother Jennifer Glaucoma Mother Jennifer Hypertension Mother Jennifer Ovarian cancer Mother's Sister Breast cancer Sister Va Payne Cancer Sister Va Payne Diabetes Sister Va Payne Hypertension Sister Va Payne Ovarian cancer Sister Va Payne Relation Name Status Comments Cousin Father Santos Lazaro (Age 77) Maternal Grandmother Alive Mother Jennifer Mother's Sister Sister Va Payne Social History Tobacco Use Types Packs/Day Years [...] on file Legal Sex Female 12:25 AM OVER SHORT AND DAMAGE CLERK Gender Identity Not on file Sexual Orientation Not on file Occupation Industry Job Start Date Job End Date retired Not on file Not on file Not on file Obstetrics History Para Term AB IAB SAB Ectopic Multiple Livin g Live Births 2 2 2 Date Outcome GA Total Labor Labor/2nd/3rd Weight Sex Type Anes PTL Radha A1 A5 Name Clin Term Term Last Filed Vital Signs Vital Sign Reading [...] 01/08/2025 10:03 AM CDT Plan of Treatment Health Maintenance Due Date Last Done Comments Lipid Panel 06/18/2017 06/18/2016, 11/2015, 06/18/2016, Additional history exists Covid-19 Vaccine (2023-2 5 season) 2024 08/27/2023, 04/30/2022, 10/18/2021, Additional history exists Foot Exam 03/02/2025 03/02/2024 Dilated Eye Exam 04/15/2025 04/15/2024, 05/06/2023 Hemoglobin A1C 07/10/2025 01/08/2025, 07/16, 02/26/2024, Additional history exists Albumin Creatinine Ratio, Urine 08/03/2025 08/03/2024, 02/26/2024, 08/19/2023, Additional history exists Fall Risk Assessment 11/02/2025 11/02/2024, 08/26/2023, 08/13/2022, Additional history exists Well Visit 65+ 11/02/2025 11/02/2024, 08/15, 08/13/2022, Additional history exists Depression Screening 01/08/2026 01/08/2025, 01/08/2025, 11/02/2024, Additional history exists eGFR 01/08/2026 01/08/2025, 10/13, 02/26/2024, Additional history exists Osteoporosis Screening-Bone Density Scan 03/13/2026 03/13/2024, 11/09/2021 DTaP/Tdap/Td Vaccine (3 - Td or Tdap) 08/29/2029 08/29/2019, 08/11/2009 Pneumococcal vaccine 65+ Completed 016, 11/16/2014, 07/14/2010 Zoster Vaccine Completed 06/22/2018, 03/16, 12/09/2008 Colon Cancer Screening-CT Colonography Discontinued 02/23/2020 Colon Cancer Screening-Colonoscopy Discontinued 02/23/2020 Colon Cancer Screening-DNA Stool Discontinued 02/23/20 20 Colon Cancer Screening-FIT Discontinued 02/23/2020 Colon Cancer Screening-FOBT Discontinued 02/23/2020 Colon Cancer Screening-Sigmoidoscopy Discontinued 02/23/2020 Colorectal Cancer Screening Discontinued Influenza Vaccine Completed 05/05/2024, , 04/23/2022, Additional history exists Hepatitis B Screening Completed 10/26/2024 Medical Devices Implanted Type Area Cylinder Honer Device Identifier Shelf Expiration Date Model / Serial / Lot [employer] Marker Tissue Side Deploy Applicator U Shaped Radiopaque Clip Titanium Collagen Revolve 10ga [id number] - [id number] - [id number] Implanted:Qty: 1 on 02/27/2024 by Mickey Licea MD at [facility] Breast Left: Breast [employer] 03/03/2024 [id number] / [id number] / [id number] Description:Stereotactic bio psy, central inferior left breast. 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 Testing performed by: [address] [address] Blood 01/08/2025 5:12 PM CDT 01/08/2025 5:12 PM CDT us Cathryn Bryant NP LAB BLOOD ORDERABLES Final Resul t [facility] [address] Department [place] [address] * Basic metabolic panel (01/08/2025 5:12 PM CDT) Sodium 140 135 - 145 mmol/L Comment:Testing performed by : [address] [address] Potassium, pl 4.2 3.3 - 4.9 mmol/L FABIOLA Comment:Testing performed by : [address] [address] Chloride 106 97 - 110 mmol/L FABIOLA Comment:Testing performed by : [address] [address] CO2 23 22 - 32 mmol/L [facility]A Comment:Testing performed by : [address] [address] Anion gap 11 2 - 15 mmol/L [facility] Comment:Testing performed by : [address] [address] BUN 20 6 - 25 mg/dL [facility]A Comment:Testing performed by : [address] [address] Creatinine 0.85 0.60 - 1.10 mg/dL [facility] Comment:Testing performed by : [address] [address] Glucose 85 70 - 199 mg/dL FABIOLA Comment: Interpretive Data Fasting glucose >/= 126 [...] was last revised 2022. Testing performed by: [address] [address] Calcium 9.1 8.5 - 10.3 mg/dL [facility]A Comment:Testing performed by : [address] [address] Blood 01/08/2025 5:12 PM CDT 01/08/2025 5:12 PM CDT Cathryn Bryant NP LAB BLOOD ORDERABLES Final Resul t Performing Organization Address [facility] de Phone Number [facility] [address] [place] [address] * (ABNORMAL) Vitamin D 25 hydroxy (01/08/2025 4:40 PM CDT) Pathologist [facility] Vitamin D 25-OH 27(L) 30 - 80 ng/mL Comment:Testing performed by : [address] [address] Blood 01/08/2025 4:40 PM CDT 01/08/2025 4:47 PM CDT Cathryn Bryant NP LAB BLOOD ORDERABLES Final Resul t Performing Organization Address City/[facility]/ZIP Co de Phone Number FABIOLA [address] [facility] Department [place] [address] * (ABNORMAL) Hemoglobin A1c (01/08/2025 10:30 AM CDT) [facility] Hgb A1C 5.7(H) 4.0 - 5.6 % Comment:Testing performed by : [address] [address] Estimated Average Glucose 117 mg/dL [facility] Comment: The ADA recommends reporting an estimated Average Glucose (eAG) with all Hemoglobin A1c results using the equation derived from a study of 507 normal and diabetic adults. Minority populations were underrepresented and children were not included. (Diabetes Care 31:9847-6210, 2008). The eAG is not equivalent to a fasting glucose. Testing performed by: [address] [address] Blood 01/08/2025 10:3 0 AM CDT 01/09/2025 4:47 AM CDT Cathryn Bryant [employer] LAB BLOOD ORDERABLES Final Resul t [address] Department [place] [address] * Differential, auto (01/08/2025 10:27 AM CDT) [facility] Neutrophil abs 5.56 1.50 - 6.50 K/cumm Comment:Testing performed by : [address] [address] Imm gran abs 0.03 0.00 - 0.10 K/cumm [facility] Comment:Testing performed by : [address] [address] Lymphocyte abs 1.64 0.80 - 3.30 K/cumm [facility] Comment:Testing performed by : [address] [address] Monocyte abs 0.74 0.20 - 0.80 K/cumm [facility] Comment:Testing performed by : [address] [address] Eosinophil abs 0.19 0.00 - 0.50 K/cumm [facility] Comment:Testing performed by : [address] [address] Basophil abs 0.05 0.00 - 0.10 K/cumm [facility] CH Comment:Testing performed by : [address] [address] Neutrophil pct 67.7 % [facility] Comment: Interpretive Data Percent cell count reference ranges are not reported, since discordance with absolute values may lead to misinterpretation of CBC data. Current Interpretive Data was last revised on 2017. Testing performed by: [address] [address] Imm gran pct 0.4 % [facility] Comment: Interpretive Data Percent cell count reference ranges are not reported, since discordance with absolute values may lead to misinterpretation of CBC data. Current Interpretive Data was last revised on 2017. Testing performed by: [address] [address] Lymphocyte pct 20.0 % [facility] Comment: Interpretive Data Percent cell count reference ranges are not reported, since discordance with absolute values may lead to misinterpretation of CBC data. Current Interpretive Data was last revised on 2017. Testing performed by: [address] [address] Monocyte pct 9.0 % [facility] Comment: Interpretive Data Percent cell count reference ranges are not reported, since discordance with absolute values may lead to misinterpretation of CBC data. Current Interpretive Data was last revised on 2017. Testing performed by: [address] [address] Eosinophil pct 2.3 % [facility] Comment: Interpretive Data Percent cell count reference ranges are not reported, since discordance with absolute values may lead to misinterpretation of CBC data. Current Interpretive Data was last revised on 2017. Testing performed by: [address] [address] Basophil pct 0.6 % [facility] Comment: Interpretive Data Percent cell count reference ranges are not reported, since discordance with absolute values may lead to misinterpretation of CBC data. Current Interpretive Data was last revised on 2017. Testing performed by: [address] [address] Blood 01/08/2025 10:2 7 AM CDT 01/08/2025 4:40 PM CDT us Cathryn Bryant NP LAB BLOOD ORDERABLES Final Resul t [address] Department [place] [address] * (ABNORMAL) CBC with auto differential (01/08/2025 10:27 AM CDT) WBC 8.21 3.80 - 9.90 K/cumm Comment:Testing performed by : [address] [address] Hgb 14.0 11.9 - 15.5 g/dL CERNER Comment:Testing performed by : [address], [address] Hct 43.8 35.6 - 45.5 % CERNER Comment:Testing performed by : [address], [address] Plt 196 150 - 400 K/cumm CERNER Comment:Testing performed by : [address], [address] MPV 11.7 9.1 - 12.3 fL [facility] Comment:Testing performed by : [address] [address] RBC 5.04 3.90 - 5.20 M/cumm [facility] CH Comment:Testing performed by : [address], [address] MCV 86.9 81.3 - 96.4 fL [facility] Comment:Testing performed by : [address], [address] MCH 27.8 27.1 - 33.3 pg [facility] CH Comment:Testing performed by : [address], [address] MCHC 32.0(L) 32.3 - 35.7 g/dL [facility] CH Comment:Testing performed by : [address] [address] RDW CV 14.9 11.1 - 14.9 % FABI[facility]A Comment:Testing performed by : [facility], [address] [place] [address]., [address] RDW SD 47.8 35.7 - 48.1 fL [facility]A Comment:Testing performed by : [facility], [address] [place] [address]., [address] NRBC abs 0.00 0.00 - 0.01 K/cumm [facility]A Comment:Testing performed by : [facility], [address] [place] [address]., [address] Blood 01/08/2025 10:2 7 AM CDT 01/08/2025 4:40 PM CDT us Cathryn Bryant NP LAB BLOOD ORDERABLES Final Resul t Performing Organization Address City/State/[facility] Co de Phone Number FABIOLA [address] Department [place] [address] * US Thyroid (12/09/2024 4:08 PM CDT) [...] Willard Chakraborty M.D. AM: AM Report ID: [id number] Reading Location: [id number] Procedure Note Willard Chakraborty MD - 12/21/2024 [...] Willard Chakraborty M.D. AM: AM Report ID: [id number] Reading Location: [place] [address] us Tio Irving MD IMG US PROCEDURES [...] comparison. No acute fracture. Alignment is normal. [id number] tricompartmental right knee osteoarthritis. Chondrocalcinosis is present. Small knee effusion. IMPRESSION: Wkyd-kd-bxsituse tricompartmental right knee osteoarthritis with a small effusion. THIS IS AN ELECTRONICALLY VERIFIED FINAL REPORT 12/10/2024 6:06 PM - Electronically signed by Gumaro Mayo M.D. MF: DAMIAN Report ID: [id number] Reading Location: [id number] Procedure Note Gumaro Mayo MD - 12/10/2024 EXAM DESCRIPTION: XR KNEE RIGHT 4 OR MORE VIEWS REASON FOR STUDY: right knee pain Chronic knee pain States she had her left knee replaced x 10 years agoand at that time they said she should have her right replaced tooOsteoarthritis FINDINGS: Four views submitted without comparison. No acute fracture. Alignment is normal. Nqof-ch-apjcpckobhljqkwmcrwkzjxk right knee osteoarthritis. Chondrocalcinosis is present. Small knee effusion. IMPRESSION: Cokd-tn-hlzyoihx tricompartmental right knee osteoarthritis with a small effusion. THIS IS AN ELECTRONICALLY VERIFIED FINAL REPORT 12/10/2024 6:06 PM - Electronically signed by Gumaro Mayo M.D. MF: DAMIAN Report ID: [id number] Reading Location: [id number] us Mars Parnell MD IMG XR PROCEDURES [...] was last reviewed 2021. Testing performed by: [address] [address] Blood 10/26/2024 8:21 AM CDT 10/26/2024 5:52 PM CDT Yareli Singh MD LAB BLOOD ORDERABLES Final Result Performing Organization Address [facility] Co de Phone Number FABIOLA [address] [place] [address] * Hepatitis C antibody Blood [...] last revised on 2019. Testing performed by: [facility], [address] [place] [address]., [address] Blood 10/26/2024 8:21 AM CDT 10/26/2024 12:25 PM CDT us Yareli Singh MD LAB MICROBIOLOGY - GENERAL ORDERABLES Final Result Performing Organization Address [facility] Co de Phone Number [facility] [address] [place] [address] * Hepatitis B core antibody, total Blood (10/26/2024 8:21 AM CDT) Hep B core IgG/IgM Nonreactive Nonreactive Comment:Testing performed by : [facility], [address] [facility], [place]., [address] Blood 10/26/2024 8:21 AM CDT 10/26/2024 2:26 PM CDT us Yareli Singh MD LAB MICROBIOLOGY - GENERAL ORDERABLES Final Result Performing Organization Address City/[facility] Co de Phone Number FABIOLA [address] Department [place] [address] * Hepatitis B surface antibody (immune status) [...] last revised on 19. Testing performed by: [address] [address] Blood 10/26/2024 8:21 AM CDT 10/26/2024 12:25 PM CDT us Yareli Singh MD LAB MICROBIOLOGY - GENERAL ORDERABLES Final Result Performing Organization Address [facility] de Phone Number [facility] [address] [place] [address] * Hepatitis B Surface Antigen Blood (10/26/2024 8:21 AM CDT) HepBsAg Nonreactive Nonreactive Comment:Testing performed by : [address] [address] Blood 10/26/2024 8:21 AM CDT 10/26/2024 12:25 PM CDT us Yareli Singh MD LAB MICROBIOLOGY - GENERAL ORDERABLES Final Result Performing Organization Address City/[facility]/ZIP Co de Phone Number [address] Department [place] [address] * (ABNORMAL) Comprehensive metabolic panel (10/26/2024 8:21 AM CDT) Sodium 142 135 - 145 mmol/L Comment:Testing performed by : [facility], [address] [place] [address]., [address] Potassium, pl 3.7 3.3 - 4.9 mmol/L [facility] Comment:Testing performed by : [address] [address] Chloride 108 97 - 110 mmol/L [facility] Comment:Testing performed by : [address] [address] CO2 23 22 - 32 mmol/L [facility] Comment:Testing performed by : [address] [address] Anion gap 11 2 - 15 mmol/L [facility] Comment:Testing performed by : [address] [address] BUN 28(H) 6 - 25 mg/dL [facility] Comment:Testing performed by : [address], [address] Creatinine 0.78 0.60 - 1.10 mg/dL [facility] Comment: Icteric sample, test results may be affected. Testing performed by: [address] [address] Glucose 89 70 - 199 mg/dL [facility] Comment: Interpretive Data Fasting glucose >/= 126 [...] was last revised 2022. Testing performed by: [address] [address] Calcium 9.2 8.5 - 10.3 mg/dL [facility] Comment:Testing performed by : [address] [address] Bilirubin, total 0.8 0.1 - 1.2 mg/dL [facility] Comment:Testing performed by : [address], [address] Protein, pl 6.5 6.5 - 8.5 g/dL [facility] Comment:Testing performed by : [address], [address] Albumin 4.0 3.5 - 5.0 g/dL [facility] Comment:Testing performed by : [address], [address] Alk phos 86 40 - 130 Units/L [facility] Comment:Testing performed by : [address], [address] ALT 19 7 - 45 Units/L [facility] Comment:Testing performed by : [address], [address] AST 20 10 - 45 Units/L [facility] Comment:Testing performed by : [address], [address] Blood 10/26/2024 8:21 AM CDT 10/26/2024 12:25 PM CDT us Yareli Singh MD LAB BLOOD ORDERABLES Final Result Performing Organization Address City/State/[facility] Co de Phone Number [address] Department [place] [address] * Albumin Creatinine Ratio, Urine (08/03/2024 6:49 PM OVER SHORT AND DAMAGE CLERK) Albumin Ur <12.0 mg/L Comment: Interpretive Data No reference range established. Current interpretive data was last revised 2018. Testing performed by: [address], [address] Creatinine Ur 19.8 mg/dL [facility] Comment: Interpretive Data No reference range established. Current interpretive data was last revised 2018. Testing performed by: [address], [address] Albumin Creatinine Ratio, Ur See Comment 1 - 29 FABIOLA JEROME Comment: Unable to calculate Testing performed by: [facility], [id number] [place] [address], [place]., [address] Urine 08/03/2024 6:49 PM OVER SHORT AND DAMAGE CLERK 08/03/2024 6:49 PM OVER SHORT AND DAMAGE CLERK us Yareli Singh MD LAB URINE ORDERABLES Final Result F[facility]A [address] [facility] Department [place] [address] * Dexa Axial Skeleton Bone Density 1 or 2 Site (03/13/2024 8:27 AM CDT) Anatomical Region Laterality Modality Body N/A Other 03/13/2024 10:0 3 PM CDT Narrative 03/13/2024 10:17 PM CDT EXAM DESCRIPTION: DEXA AXIAL SKELETON BONE DENSITY 1 OR MORE SITES REASON FOR STUDY: 78 y/o year old F with given history of: 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 [facility] causes of low bone mineral density may [...] Gumaro Mayo M.D. MF: DAMIAN Report ID: [id number] Reading Location: [id number] us Yareli Singh MD IMG DXA PROCEDURES Final R esult * COLONOSCOPY (02/23/2020 7:16 AM CDT) Anatomical Region Laterality Modality Other Narrative Procedure Note Juan Carlos Pop MD - 02/23/2020 7:16 AM CDT [facility] Patient Name: Odette Trujillo Procedure Date: 02/23/2020 7:16 AM Date of : 1945 Admit Type: Outpatient Age: 74 Gender: Female Attending MD: Juan Carlos Pop M.D. Room: [facility] ENDOSCOPY ROOM 2 Note Status: Finalized Patient [...] under direct vision. The Pediatric Colonoscope PCF-H190L [id number] was introducedthrough the anus and advanced to [...] malignant neoplasm of colon CPT copyright 2017 [employer]. All rights reserved. The codes documented in this report are preliminary and upon quiller tender reviewmay be revised to meet current compliance requirements. Recognized by the [employer] for promoting quality in endoscopy Juan Carlos Pop MD ENDOSCOPY PROCEDURES Final Re sult * Lipid panel (06/18/2016 7:39 AM OVER SHORT AND DAMAGE CLERK) [facility] Cholesterol 178 125 - 200 mg/dL [facility] Comment: Test performed at [facility] [place] [address] [place] [address] Director: NORBERTO MARTINEZ DO,MPH 06/18/2016 7:39 AM OVER SHORT AND DAMAGE CLERK Yareli Singh MD LAB BLOOD ORDERABLES Final Result [facility] from Last 3 Months or Most Recently Relevant to Health Maintenance Insurance UHC MEDICARE ADVANTAGE [facility] MEDICARE [facility] MEDICARE [employer] MEDICARE Advance Directives For more information, please contact: [phone] Documents on File Type Date Recorded Patient Feed Research Aide Expl anation ADVANCE DIRECTIVE 08/28/2019 DNR ADVANCE DIRECTIVE 01/17/2009 POWER OF A TTORNEY ADVANCE DIRECTIVE 01/17/2009 POWER OF A TTORNEY-MEDICAL ADVANCE DIRECTIVE 10/11/1994 LIVING DENIS L * Full Code (Latest Code Status on File) Date Activated Date Inactivated Comments 02/23/2020 7:37 AM 02/23/2020 1:00 PM * Full Code Date Activated Date Inactivated Comments 02/23/2020 7:36 AM 02/23/2020 7:37 AM Care Teams Gunner'S Mate G Relationship Specialty Start Date End Date Yareli Singh MD PCP - General 10/12/16 Robert Morrissey MD [address] [facility] [address] [place] [address] Neurology 01/04/17 Mars Parnell MD [address] [facility] [address] [place] [address] Orthopedic Surgery 01/04/17 She Castellon MD [address] [facility] [place] [address] Dermatology 01/04/17 Edmund Duran MD [address] [place] [address] Ophthalmology 01/04/17 Miguel Joe MD [address] [place] [address] Otolaryngology 01/04/17 Alessia Zaldivar MD [address] [place] [address] Consulting Physician Diagnostic Radiology 03/02/24 Tio Irving MD [address] [place] [address] Referring Physician General Surgery 03/02/24
--- OUTSIDE RECORDS SUMMARY | 2025-01-12 07:13 | XMS_ITS | Encounter Summary ---
Author Organization [facility] Healthcare Address [address] [place] [address] Care Team Providers Care Poultry Buyer Name Role Phone Yareli Singh MD Primary Care Provider +- [phone] Robert Morrissey MD Unavailable [phone] Mars Martinez MD Unavailable [phone] She Castellon MD Unavailable [phone] Edmund Duran MD Unavailable [phone] Benjamín Stinson MD Unavailable [phone] Alessia Zaldivar MD Unavailable Tio Irving MD Unavailable Encounter Details Date Type Department Care Team (Late st Contact Info) Description 01/11/2025 Results Follow-Up [facility] [address] [place] [id number] Cathryn Bryant NP [address] [place] [address] Hemoglobin A1c, CBC with auto differential, Basic metabolic panel, Additional followed-up results: 3 Social History Tobacco Use Types Packs/Day Years [...] on file Legal 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 Gender Identity Not on file Sexual Orientation Not on file Occupation Industry Job Start Date Job End Date retired Not on file Not on file Not on file documented as of this encounter Plan of Treatment Not on file documented as of this encounter Visit Diagnoses Not on filedocumented in this encounter Care Teams Poultry Buyer Relationship Specialty Start Date End Date Yareli Singh MD PCP - General 10/12/16 Robert Morrissey MD [address] [facility] [place] [address] Neurology 01/04/17 Mars Martinez MD [facility] [place] [address] Orthopedic Surgery 01/04/17 She Castellon MD [address] [facility] [place] [address] Dermatology 01/04/17 Edmund Duran MD [address] [place] [address] [place] [address] Ophthalmology 01/04/17 Benjamín Stinson MD [address] [place] [address] Otolaryngology 01/04/17 Alessia Zaldivar MD [address] [place] [address] Consulting Physician Diagnostic Radiology 03/02/24 Tio Irving MD 2 [facility] [address] Referring Physician General Surgery 03/02/24 documented as of this encounter
--- NOTE | 2025-01-12 08:40 | ECG_ITS ---
Test Date: 2025-01-12 08:59:42 Measurements Intervals [place] Rate: 67 P: 43 [place]: 163 QRS: 1 QRSD: 90 T: 24 QT: 398 QTc: 422 Interpretive Statements SINUS RHYTHM No previous ECG available for comparison Electronically Signed On 01-12-2025 18:01:26 CDT by Quin Arana
== END 2025-01-12 07:09 | disposition home or self-care (01) ==
PROVIDERS: PCP Internal Medicine Geriatric Medicine; Visit Provider Orthopaedic Surgery
DX: E11.59 Type 2 diabetes mellitus with other circulatory complications (principal); I15.2 Hypertension secondary to endocrine disorders
CPT/HCPCS: 93005

== ENCOUNTER 2025-03-03 07:35 | Outpatient (CLI) | payer MEDICARE, SELFPAY ==
--- OUTSIDE RECORDS SUMMARY | 2025-03-03 07:39 | XMS_ITS | Encounter Summary ---
Author Organization [facility] Healthcare Address [address] [place] [address] Care Team Providers Care Tyre Finisher And Examiner Name Role Phone Yareli Singh MD Primary Care Provider + [phone] Robert Morrissey MD Unavailable [phone] Mars Martinez MD Unavailable [phone] She Castellon MD Unavailable [phone] Edmund Duran MD Unavailable [phone] Miguel Stinson MD Unavailable [phone] Alessia Zaldivar MD Unavailable [phone] Tio Irving MD Unavailable Encounter Details Date Type Department Care Team (Late st Contact Info) Description 01/11/2025 Results Follow-Up [facility] [address] [place] [id number] Cathryn Bryant NP [address] [place] [address] Hemoglobin A1c, CBC with auto differential, Basic [...] on file 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 Gender Identity Not on file Sexual Orientation Not on file Occupation Industry Job Start Date Job End Date retired Not on file Not on file Not on file documented as of this encounter Plan of Treatment Not on file documented as of this encounter Visit Diagnoses Not on filedocumented in this encounter Care Teams Tyre Finisher And Examiner Relationship Specialty Start Date End Date Yareli Singh MD PCP - General 10/12/16 Robert Morrissey MD [address] [facility] [place] [address] Neurology 01/04/17 Mars Martinez MD [facility] [facility] [place] [address] Orthopedic Surgery 01/04/17 She Castellon MD [address] [facility] [place] [address] Dermatology 01/04/17 Edmund Duran MD [address] [place] [address] [place] [address] Ophthalmology 01/04/17 Miguel Stinson MD [address] [place] [address] Otolaryngology 01/04/17 Alessia Zaldivar MD [address] [place] [address] Consulting Physician Diagnostic Radiology 03/02/24 Tio Irving MD [address] [place] [address] Referring Physician General Surgery 03/02/24 documented as of this encounter
--- OUTSIDE RECORDS SUMMARY | 2025-03-03 07:39 | XMS_ITS | Encounter Summary ---
Author Organization [facility] Healthcare Address [address] [place] [address] Care Team Providers Care Cloth Boil Off Machine Operator Name Role Phone Yareli Singh MD Primary Care Provider [phone] Robert Morrisesy MD Unavailable [phone] Mars Martinez MD Unavailable [phone] She Catsellon MD Unavailable [phone] Edmund Duran MD Unavailable [phone] Benjamín Stinson MD Unavailable [phone] Fredy Wang MD Unavailable [phone] Alessia Zaldivar MD Unavailable [phone] Tio Irving MD Unavailable Reason for Visit * Reason Onset Date Comments Scheduling Appointments 11/16/2020 Reminder Mammogram Appt Encounter Details Date Type Department Care Team (Late st Contact Info) Description 11/16/2020 Telephone [facility] [address] [place] [address] Sarika Franco RT Scheduling Appointments (Reminder Mammogram [...] on file 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 [address] [place] [address] Neurology 01/04/17 Mars Martinez MD [address] [place] [address] [address] [place] [address] Orthopedic Surgery 01/04/17 She Castellon MD [facility] [address] [place] [address] Dermatology 01/04/17 Edmund Duran MD [address] [place] [address] Ophthalmology 01/04/17 Benjamín Stinson MD [address] [place] [address] Otolaryngology 01/04/17 Fredy Wang MD [address] [place] [address] [place] [address] Consulting Physician Endocrinology 05/21/22 03/01/24 Alessia Zaldivar MD [address] [place] [address] Consulting Physician Diagnostic Radiology 03/02/24 Tio Irving MD [address] [address] Referring Physician General Surgery 03/02/24 documented as of this encounter
--- OUTSIDE RECORDS SUMMARY | 2025-03-03 07:40 | XMS_ITS | Clinical Summary ---
Author Organization CC [facility] [address] Address [address] [place] [address] Phone Care Team Providers Care Mid Level Game Designer Name Role Phone Yareli Singh MD Primary Care Provider [phone]- [phone] Robert Morrissey MD Unavailable [phone] Mars Parnell MD Unavailable [phone] She Castellon MD Unavailable [phone] Edmund Duran MD Unavailable [phone] Miguel Joe MD Unavailable [phone] Alessia Zaldivar MD Unavailable [phone] Tio Irving MD Unavailable Allergies Active Allergy [...] sob, stomach upset, Medications vit A,C and D-wsuuso-fgtkmyhw (OCUVITE with LUTEIN) 1,000 unit-200 mg-60 unit-2 mg tabletIndications:V itamin Deficiency Prevention 1 tablet Active WaEs-PtSJH4-dzdwjcj n sod-aloe 0.9 % gel Apply to [...] INTO EACH EYE ONCE DAILY 023 Active dicyclomine (BENTYL) 10 mg capsuleIndications: Irritable Bowel Syndrome Take 1 capsule (10 mg total) by mouth daily as needed (Abdominal discomfort) 60 capsule 1 024 Active albuterol HFA (PROVENTIL HFA,VENTOLIN HFA,PROAIR HFA) 90 [...] 2 times daily,Once a day, Reported on 01/20/2025 famotidine (PEPCID) 20 mg tabletIndications:C hronic GERD [...] (1,000 Units total) by mouth daily Active predniSONE (DELTASONE) 10 mg tabletIndications:A llergic dermatitis due to poison svetlana Take 4 tabs days 1&2, 3 tabs days 3 & 4, 2 tabs days 5 & 6, 1 tab days 7-10. 22 tablet 025 Active triamcinolone (KENALOG) 0.1 % creamIndications:Al lergic dermatitis due to poison svetlana Apply topically 3 (three) times a day for 10 days 30 g 025 Active cholestyramine (QUESTRAN) 4 gram packetIndications:D iarrhea following gastrointestinal surgery Take 1 packet by mouth daily for 14 days 14 packet 1 020 2019 Discontinued Active Problems Problem Noted Date Diagnosed Date Allergic dermatitis 01/20/2025 Assessment & Plan (01/20/2025 3:10 PM CDT): Acute, unstable Differential ddx: allergic dermatitis v atopic dermatitis Relative history: picking weeds recently Current meds: Calamine lotion Today's Plan: Meds: Prednisone, triamcinolone Discontinuation of new soaps/detergents, shower daily, use fragrance-free soaps OTC recs: antihistamine (Zyrtec, Carmina, Claritin); would avoid Benadryl as it can cause fatigue Consults: None today Take note of known allergy to poison svetlana Goal: resolution of rash, decreased pruritus ED presentation: should rash spread to face/mouth, difficulty breathing/swallowing, difficulty with eye sight/eyes swelling, shortness of breath, chest discomfort/pain Situational anxiety 10/13/2024 Assessment & Plan (10/13/2024 [...] 2.2 Assessment & Plan (08/09/2024 6:30 PM ELECTRON BEAM MACHINE WELDER SETTER): Chronic, confirmed on DEXA 03/2024. Taking Tymlos without adverse effects. Continue same. Recheck BMP, and vitamin D today. Abnormality of left breast on screening mammogra m 02/24/2024 Overview (02/27/2024): Exam Ended: 02/24/24 12:18 = BI-RADS: 4 - Suspicious for malignancy. Biopsy is recommended.Alessia Zaldivar M.D: . Needle biopsy 02/27/2024 = Vitamin D deficiency 07/09/2023 Assessment & Plan (07/09/2023 7:16 PM ELECTRON BEAM MACHINE WELDER SETTER): Will re-check serum level today in office [...] classes Assessment & Plan (05/21/2022 8:51 PM ELECTRON BEAM MACHINE WELDER SETTER): Pre-perimetric with full Cesar visual field (HVF) Agrees to proceed with SLT both eyes (OU) Thyroid nodule 04/06/2021 Overview (11/03/2024): Care transferred to at [facility] 2023 He will be following thyroid sonogram [...] lesion. Assessment & Plan (07/09/2023 7:16 PM ELECTRON BEAM MACHINE WELDER SETTER): Repeat US in november showed unchanged nodule [...] SEPTEMBER 2018 Prediabetes 06/30/2017 Assessment & Plan (01/20/2025 3:09 PM CDT): Chronic, stable Relative hx: HTN Current meds: Mounjaro Glucose readings at home: checks intermittently Labs reviewed: Lab Results Component Value Date HGBA1C 5.7 (H) 01/08/2025 Today's Plan: Meds: continue Mounjaro Labs: Hb A1c, cholesterol/LDL, CMP, albumin creatinine ratio q6 months Recs: heart healthy diet, regular exercise, managing stress Monitor for signs: Hypoglycemia (LOW sugar): shaking, sweating, dizziness, sudden behavior change, very hungry, weak/tired, headaches, nervous feeling Hyperglycemia (HIGH sugar): very thirsty, increasing urination, very hungry, increasingly tired, change in vision, infections that won't seem to heal Discussed temporary effect of steroids on blood sugars if checking at home; will likely subside w/ completion of steroid course. Continue to monitor sugars as instructed. Goal: hemoglobin A1c < 7.0% = at goal Assessment & Plan (01/08/2025 10:36 AM CDT): [...] months. Assessment & Plan (08/09/2024 6:27 PM ELECTRON BEAM MACHINE WELDER SETTER): Chronic, controlled. Last HbA1c last week was [...] before. Assessment & Plan (09/20/2023 10:18 AM ELECTRON BEAM MACHINE WELDER SETTER): Last HbA1c in August was 6.2. no [...] her Master Degree in Social Work from [employer]. Miguel Joe M.D. Horticultural Nursery Assistant Department of Otolaryngology - Head and Neck Surgery Chief, Otologic and Neurotologic Surgery Assessment & Plan (08/09/2024 6:25 PM ELECTRON BEAM MACHINE WELDER SETTER): Controlled on Topamax nightly and propranolol BID. [...] Cardiology Assessment & Plan (08/09/2024 6:24 PM ELECTRON BEAM MACHINE WELDER SETTER): Chronic, at goal. BP stable in office [...] diet. Assessment & Plan (09/20/2023 10:15 AM ELECTRON BEAM MACHINE WELDER SETTER): BP stable in office today on current therapy. No acute findings on exam. Continue current regimen and low salt diet. Assessment & Plan (07/09/2023 7:14 PM ELECTRON BEAM MACHINE WELDER SETTER): BP borderline in office today at 140/78 [...] last week unremarkable. Refill sent to pharmacy. [place] diet. Resolved Problems Problem Noted Date Diagnosed Date Resolved Date Pre-op evaluation 01/08/2025 01/20/2025 Assessment & Plan (01/08/2025 10:37 AM CDT): Presents for R TKR clearance with Dr. Parnell. Meds and allergies reviewed in office today for accuracy. Vitals stable, no acute findings on exam. Stop Tymlos 30 days before procedure. RCRI score of 1. Low risk for surgical complications, cleared for procedure. Will fax clearance form and recent labs to Dr. Parnell. Strain of latissimus dorsi muscle 10/13/2024 01/08/2025 [...] 08/26/2023 Assessment & Plan (07/09/2023 7:21 PM ELECTRON BEAM MACHINE WELDER SETTER): For several months but worse in the [...] surgery Assessment & Plan (05/21/2022 8:50 PM ELECTRON BEAM MACHINE WELDER SETTER): Tmax low 20s with modest response to [...] 023 Assessment & Plan (05/29/2021 3:02 PM ELECTRON BEAM MACHINE WELDER SETTER): Patient presents with reports of rhinorrhea that [...] 08/13/2022 Assessment & Plan (05/29/2021 3:00 PM ELECTRON BEAM MACHINE WELDER SETTER): Patient has c/o sore throat most likely viral in nature and secondary to her post nasal drip. On exam mild erythema noted. No exudate present. She had rapid test for strep that was negative. Symptom management was encouraged. Special screening for malign ant neoplasms, colon 01/07/2020 08/13/2022 Overview (01/07/2020): Added automatically from request for surgery [id number] Encounter for screening colonoscopy 09/01/2019 08/11/2021 Overview (09/01/2019): Added automatically from request for surgery [id number] Achilles tendinitis of right lower extremity 8 [...] by gianfranco was Followed by MIGUEL JOE [[id number]]@ [facility] Vitreous syneresis 09/14/2015 Epiretinal membrane (ERM) of right eye 09/14/2015 08/26/2023 Assessment & Plan (05/06/2023 2:14 PM CDT): Mild, not visually significant Photopsia 08/25/2015 01/08/2018 Adiposity 06/03/2015 01/04/2017 Overview (10/18/2016): Obesity (BMI 30.0-34.9) Arthritis 11/28/2013 08/26/2023 Overview (10/18/2016): Joint pain Assessment & Plan (02/11/2023 2:49 PM CDT): Stable on meloxicam at current, will refill. Encounters Date Type Department Care Team Description 02/19/2025 12:46 PM CDT - 02/19/2025 11:59 PM CDT Hospital Encounter [facility] [address] [place] [address] Encounter for screening mammogram for breast cancer Discharge Disposition: Discharge to home or self care 02/15/2025 Telephone [facility] [address] [facility] [address] [place] [phone] Teresa Joseph Chart Review (Med adherence) 02/12/2025 Telephone [facility] 1 [facility] [address] [place] [phone] Yareli Singh MD Mammogram 01/20/2025 3:00 PM CDT Office Visit [facility] [address] [facility] [address] [place] [address] Philip Anne NP Allergic dermatitis due to poison svetlana (Primary Dx); Prediabetes 01/20/2025 Telephone [facility] [address] [facility] [address] [place] [address] Naima Kimbrough RN 01/11/2025 Results Follow-Up [facility] [address] [place] [address] Cathryn Bryant NP Hemoglobin A1c, CBC with auto differential, Basic metabolic panel, Additional followed-up results: 3 01/08/2025 11:00 AM CDT Lab [facility] [address] [place] [address] HTN (hypertension), benign; Prediabetes; Osteoporosis, idiopathic 01/08/2025 10:00 AM CDT Office Visit [facility] [address] [place] [address] Cathryn Bryant NP Pre-op evaluation (Primary Dx); HTN (hypertension), benign; Prediabetes 12/09/2024 3:18 PM CDT - 12/09/2024 11:59 PM CDT Hospital Encounter [facility] [address] [place] [address] Right knee pain, unspecified chronicity Discharge Disposition: Discharge to home or self care 12/09/2024 3:17 PM CDT - 12/09/2024 11:59 PM CDT Hospital Encounter [facility] [address] [place] [address] Nontoxic single thyroid nodule Discharge Disposition: Discharge to home or self care from Last 3 Months Immunizations Immunization Administration Dates Next Due COVID-19 mRNA (Keynoir) 0.3 m L (30 mcg) vaccine (12 [...] ENDOMETRIAL BIOPSY COLONOSCOPY 09/12/2009 - 10/12/2009 Dr. Cornejo (-) for polyps, small cecal ulcer REPLACEMENT [...] 07/14/2017 Bilateral PC/IOL BREAST BIOPSY 02/27/2024 Left benign stereo bx JOINT REPLACEMENT 2016 Medical History Medical History Date Comments Allergic rhinitis Glaucoma Asthma Perforated nasal septum Fibrocystic breast Lactose intolerance Hypertension Breast injury fell and bruised left breast 01/2019 Sleep apnea does not use c-p ap GERD (gastroesophageal reflux disease) Diverticulosis Type 2 diabetes mellitus Achilles tendinitis of right lower extremity 03/28/2018 [...] by gianfranco was Followed by MIGUEL JOE [[id number]]@ [facility] Osteoporosis 2023 Thyroid disease 2020 Arthritis 1999 Migraines 1999 Family History Medical History Relation Name Comments Abdominal Aortic Aneurysm Father Santos li Alcohol abuse Father Santos Lazaro Heart attack Father Santos Lazaro Heart disease Father Santos Lazaro Blindness Maternal Grandmother Glaucoma Maternal Grandmother Breast cancer Maternal cousin Corneal Transplants Mother Jennifer Diabetes Mother Jennifer Glaucoma Mother Jennifer Hypertension Mother Jennifer Ovarian cancer Mother's Sister Breast cancer Sister Va Payne Cancer Sister Va Payne Diabetes Sister Va Payne Hypertension Sister Va Payne Ovarian cancer Sister Va Payne Thyroid cancer Neg Hx Relation Name Status Comments Cousin Father Santos Lazaro (Age 77) Maternal Grandmother Alive Maternal cousin Mother Jennifer Mother's Sister Sister Va Payne [...] on file Legal Sex Female 12:25 AM ELECTRON BEAM MACHINE WELDER SETTER Gender Identity Not on file Sexual Orientation Not on file Occupation Industry Job Start Date Job End Date retired Not on file Not on file Not on file Obstetrics History Para Term AB IAB SAB Ectopic Multiple Livin g Live Births 2 2 2 2 Date Outcome GA Total Labor Labor/2nd/3rd Weight Sex Type Anes PTL Radha A1 A5 Name Clin Term Term Last Filed Vital Signs Vital Sign Reading Time Taken Comments Blood Pressure 142/80 01/20/2025 2:55 PM CDT Pulse 73 01/20/2025 2:55 PM CDT Temperature 37.2 C (98.9 F) 01/20/2025 2:55 PM CDT Respiratory Rate 16 01/20/2025 2:55 PM CDT Oxygen Saturation 98% 01/20/2025 2:55 PM CDT Inhaled Oxygen Concentration - - Weight 62.6 kg (138 lb) 02/19/2025 12:51 PM CDT Height 160 cm (5' 3) 02/19/2025 12:51 PM CDT Body Mass Index 24.45 02/19/2025 12:51 PM CDT Plan of Treatment Health Maintenance Due Date Last Done Comments Lipid Panel 06/18/2017 06/18/2016, 11/2015, 06/18/2016, Additional history exists Covid-19 Vaccine (2023-08 5 season) 2024 08/27/2023, 04/30/2022, 10/18/2021, Additional history exists Foot Exam 03/02/2025 03/02/2024 Influenza Vaccine (#1) 2025 , 04/17/2023, 04/23/2022, Additional history exists Hemoglobin A1C 07/10/2025 01/08/2025, 07/16, 02/26/2024, Additional history exists Albumin Creatinine Ratio, Urine 08/03/2025 08/03/2024, 02/26/2024, 08/19/2023, Additional history exists Fall Risk Assessment 11/02/2025 11/02/2024, 08/26/2023, 08/13/2022, Additional history exists Well Visit 65+ 11/02/2025 11/02/2024, 08/15, 08/13/2022, Additional history exists Depression Screening 01/08/2026 01/08/2025, 01/08/2025, 11/02/2024, Additional history exists eGFR 01/08/2026 01/08/2025, 10/13, 02/26/2024, Additional history exists Dilated Eye Exam 02/22/2026 02/22/2025, 08/2023, 05/06/2023 Osteoporosis Screening-Bone Density Scan 03/13/2026 03/13/2024, 11/09/2021 DTaP/Tdap/Td Vaccine (3 - Td or Tdap) 08/29/2029 08/29/2019, 08/11/2009 Pneumococcal vaccine 65+ Completed 016, 11/16/2014, 07/14/2010 Zoster Vaccine Completed 06/22/2018, 03/16, 12/09/2008 Colon Cancer Screening-CT Colonography Discontinued 02/23/2020 Colon Cancer Screening-Colonoscopy Discontinued 02/23/2020 Colon Cancer Screening-DNA Stool Discontinued 02/23/20 Colon Cancer Screening-FIT Discontinued 02/23/2020 Colon Cancer Screening-FOBT Discontinued 02/23/2020 Colon Cancer Screening-Sigmoidoscopy Discontinued 02/23/2020 Colorectal Cancer Screening Discontinued Hepatitis B Screening Completed 10/26/2024 Medical Devices Implanted Type Area Lawn Mower Sharpener Device Identifier Shelf Expiration Date Model / Serial / Lot [email or web address] Marker Tissue Side Deploy Applicator U Shaped Radiopaque Clip Titanium Collagen Revolve 10ga [id number] - [id number] - [id number] Implanted:Qty: 1 on 02/27/2024 by Mickey Licea MD at [facility] Breast Left: Breast [email or web address] 03/03/2024 [id number] / [id number] / [id number] Description:Stereotactic bio psy, central inferior left breast. Cores x5. Microcalcs in cassettes 1-5. 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) DEXA AXIAL SKELETON BONE DENSITY 1 OR MORE SITES Schedule Routine, Read Routine (OP Routine) 03/13/2024 8:27 AM CDT Menopause COLONOSCOPY 02/23/2020 7:16 AM CDT LIPID PANEL Routine 06/18/2016 7:39 AM ELECTRON BEAM MACHINE WELDER SETTER from Last 3 Months or Most Recently Relevant to Health Maintenance Results * (ABNORMAL) DIABETES EYE EXAM (02/22/2025 2:26 PM CDT) SCRIBED HM DIABETIC DILATED EYE EXAM Abnormal Narrative Hui Dalton, MA - 02/22/2025 2:26 PM CDT MINIMAL BACKGROUND RETINOPATHY BOTH EYES Historical Provider [facility] Edited Result - Final * Screening Mammogram Bilateral W Ke[place] (02/19/2025 1:03 PM CDT) Anatomical Region Laterality Modality Breast Bilateral Mammography Impressions 02/19/2025 2:14 PM CDT Bilateral No evidence of malignancy in either breast. OVERALL BI-RADS FINAL ASSESSMENT: 1 - Negative RECOMMENDATION: Recommend bilateral annual screening mammography. Narrative 02/19/2025 2:14 PM CDT EXAMINATION: Screening Mammogram Bilateral W Keaton: 02/19/2025 COMPARISON: Relevant prior studies available at the time of interpretation were reviewed, including the most recent mammogram on: 02/24/2024. TECHNIQUE: Mammography was performed with 2D and 3D digital breast tomosynthesis (DBT) images. CAD was utilized. BREAST PARENCHYMAL COMPOSITION: There are scattered areas of fibroglandular density. FINDINGS: Bilateral There is no suspicious mass, calcification, or architectural distortion in either breast. Yareli Singh MD IMG MAMMO PROCEDURES Final Result * eGFR (01/08/2025 5:12 PM CDT) eGFR [...] was last reviewed 2021. Testing performed by: [address] [address] Blood 01/08/2025 5:12 PM CDT 01/08/2025 5:12 PM CDT Cathryn Bryant DONOR RELATIONS MANAGER LAB BLOOD ORDERABLES Final Resul t [address] Department [place] [address] * Basic metabolic panel (01/08/2025 5:12 PM CDT) Sodium 140 135 - 145 mmol/L Comment:Testing performed by : [address] [address] Potassium, pl 4.2 3.3 - 4.9 mmol/L [facility] Comment:Testing performed by : [address] [address] Chloride 106 97 - 110 mmol/L CERNER Comment:Testing performed by : [address] [address] CO2 23 22 - 32 mmol/L CERNER Comment:Testing performed by : [address] [address] Anion gap 11 2 - 15 mmol/L [facility] Comment:Testing performed by : [address] [address] BUN 20 6 - 25 mg/dL CERNER Comment:Testing performed by : [address] [address] Creatinine 0.85 0.60 - 1.10 mg/dL CERNER Comment:Testing performed by : [address] [address] Glucose 85 70 - 199 mg/dL CERNER Comment: Interpretive Data Fasting glucose >/= 126 [...] classification and Diagnosis of Diabetes Diabetes Care 2021; 46: S19-S40. Current interpretive data was last revised 2022. Testing performed by: [facility], [address] [place] [address]., [address] Calcium 9.1 8.5 - 10.3 mg/dL [facility] Comment:Testing performed by : [address] [address] Blood 01/08/2025 5:12 PM CDT 01/08/2025 5:12 PM CDT Cathryn Bryant LAB BLOOD ORDERABLES Final Resul t Performing Organization Address [facility] de Phone Number [facility] [place] [address] * (ABNORMAL) Vitamin D 25 hydroxy (01/08/2025 4:40 PM CDT) Vitamin D 25-OH 27(L) 30 - 80 ng/mL Comment:Testing performed by : [facility], [address] [place] [address]., [address] Blood 01/08/2025 4:40 PM CDT 01/08/2025 4:47 PM CDT Cathryn Bryant LAB BLOOD ORDERABLES Final Resul t Performing Organization Address [facility] Co de Phone Number F[facility] [address] [facility] Department [place] [address] * (ABNORMAL) Hemoglobin A1c (01/08/2025 10:30 AM CDT) Hgb A1C 5.7(H) 4.0 - 5.6 % Comment:Testing performed by : [address] [address] Estimated Average Glucose 117 mg/dL [facility] Comment: The ADA recommends reporting an estimated Average Glucose (eAG) with all Hemoglobin A1c results using the equation derived from a study of 507 normal and diabetic adults. Minority populations were underrepresented and children were not included. (Diabetes Care 31:8285-9668, 2008). The eAG is not equivalent to a fasting glucose. Testing performed by: [facility], [address] [place] [address]., [address] Blood 01/08/2025 10:3 0 AM CDT 01/09/2025 4:47 AM CDT Cathryn Bryant NP LAB BLOOD ORDERABLES Final Resul t [facility] [address] Department [place] [address] * Differential, auto (01/08/2025 10:27 AM CDT) Neutrophil abs 5.56 1.50 - 6.50 K/cumm Comment:Testing performed by : [facility], [address] [place] [address]., [address] Imm gran abs 0.03 0.00 - 0.10 K/cumm [facility] Comment:Testing performed by : [address] [address] Lymphocyte abs 1.64 0.80 - 3.30 K/cumm [facility] Comment:Testing performed by : [address] [address] Monocyte abs 0.74 0.20 - 0.80 K/cumm [facility] Comment:Testing performed by : [address] [address] Eosinophil abs 0.19 0.00 - 0.50 K/cumm [facility] Comment:Testing performed by : [address] [address] Basophil abs 0.05 0.00 - 0.10 K/cumm [facility] Comment:Testing performed by : [address], [address] Neutrophil pct 67.7 % [facility]NOTE 3] Comment: Interpretive Data Percent cell count reference ranges are not reported, since discordance with absolute values may lead to misinterpretation of CBC data. Current Interpretive Data was last revised on 2017. Testing performed by: [facility], [address] [place] [address]., [address] Imm gran pct 0.4 % CERNER Comment: Interpretive Data Percent cell count reference ranges are not reported, since discordance with absolute values may lead to misinterpretation of CBC data. Current Interpretive Data was last revised on 2017. Testing performed by: [address] [address] Lymphocyte pct 20.0 % CERNER Comment: Interpretive Data Percent cell count reference ranges are not reported, since discordance with absolute values may lead to misinterpretation of CBC data. Current Interpretive Data was last revised on 2017. Testing performed by: [facility], [address] [place] [address]., [address] Monocyte pct 9.0 % CERNER Comment: Interpretive Data Percent cell count reference ranges are not reported, since discordance with absolute values may lead to misinterpretation of CBC data. Current Interpretive Data was last revised on 2017. Testing performed by: [facility], [address] [place] [address]., [address] Eosinophil pct 2.3 % CERNER Comment: Interpretive Data Percent cell count reference ranges are not reported, since discordance with absolute values may lead to misinterpretation of CBC data. Current Interpretive Data was last revised on 2017. Testing performed by: [address] [address] Basophil pct 0.6 % CERNER Comment: Interpretive Data Percent cell count reference ranges are not reported, since discordance with absolute values may lead to misinterpretation of CBC data. Current Interpretive Data was last revised on 2017. Testing performed by: [address] [address] Blood 01/08/2025 10:2 7 AM CDT 01/08/2025 4:40 PM CDT us Cathryn Bryant NP LAB BLOOD ORDERABLES Final Resul t [facility] [address] Department [place] [address] * (ABNORMAL) CBC with auto differential (01/08/2025 10:27 AM CDT) [facility] WBC 8.21 3.80 - 9.90 K/cumm Comment:Testing performed by : [address], [address] Hgb 14.0 11.9 - 15.5 g/dL CERNER CH Comment:Testing performed by : [address], [address] Hct 43.8 35.6 - 45.5 % C[facility] CH Comment:Testing performed by : [address], [address] Plt 196 150 - 400 K/cumm [facility] CH Comment:Testing performed by : [address], [address] MPV 11.7 9.1 - 12.3 fL C[facility] CH Comment:Testing performed by : [address], [address] RBC 5.04 3.90 - 5.20 M/cumm [facility] CH Comment:Testing performed by : [address], [address] MCV 86.9 81.3 - 96.4 fL [facility] CH Comment:Testing performed by : [address], [address] MCH 27.8 27.1 - 33.3 pg C[facility]ER CH Comment:Testing performed by : [address], [address] MCHC 32.0(L) 32.3 - 35.7 g/dL C[facility] CH Comment:Testing performed by : [address], [address] RDW CV 14.9 11.1 - 14.9 % [facility] CH Comment:Testing performed by : [address] [address], [address] RDW SD 47.8 35.7 - 48.1 fL CERNER CH Comment:Testing performed by : [address], [address] NRBC abs 0.00 0.00 - 0.01 K/cumm FABIOLA JEROME Comment:Testing performed by : [facility], [id number] [place] [address], [place]., [address] Blood 01/08/2025 10:2 7 AM CDT 01/08/2025 4:40 PM CDT us Cathryn Bryant NP LAB BLOOD ORDERABLES Final Resul t Performing Organization Address City/State/[facility] Co de Phone Number FABIOLA JEROME [address] [facility] [place] [address] * US Thyroid (12/09/2024 4:08 PM CDT) [...] Willard Chakraborty M.D. AM: AM Report ID: [id number] Reading Location: [id number] Procedure Note Willard Chakraborty MD - 12/21/2024 [...] Willard Chakraborty M.D. AM: AM Report ID: [id number] Reading Location: [id number] us Tio Irving MD IMG US PROCEDURES [...] comparison. No acute fracture. Alignment is normal. Wkqb-ed-ebomqlxs tricompartmental right knee osteoarthritis. Chondrocalcinosis is present. Small knee effusion. IMPRESSION: Mokv-by-rgawunlo tricompartmental right knee osteoarthritis with a small effusion. THIS IS AN ELECTRONICALLY VERIFIED FINAL REPORT 12/10/2024 6:06 PM - Electronically signed by Gumaro Mayo M.D. MF: [email or web address] Report ID: [id number] Reading Location: [id number] Procedure Note Gumaro Mayo MD - 12/10/2024 EXAM DESCRIPTION: XR KNEE RIGHT 4 OR MORE VIEWS REASON FOR STUDY: right knee pain Chronic knee pain States she had her left knee replaced x 10 years agoand at that time they said she should have her right replaced tooOsteoarthritis FINDINGS: Four views submitted without comparison. No acute fracture. Alignment is normal. Ujnt-vs-vbxkdjjaezjatcerqtwwaljw right knee osteoarthritis. Chondrocalcinosis is present. Small knee effusion. IMPRESSION: Pwoh-kb-qgsqvcyr tricompartmental right knee osteoarthritis with a small effusion. THIS IS AN ELECTRONICALLY VERIFIED FINAL REPORT 12/10/2024 6:06 PM - Electronically signed by Gumaro Mayo M.D. MF: [email or web address] Report ID: [id number] Reading Location: [place] [address] Mars Parnell MD IMG XR PROCEDURES Final Re sult * Albumin Creatinine Ratio, Urine (08/03/2024 6:49 PM ELECTRON BEAM MACHINE WELDER SETTER) Albumin Ur <12.0 mg/L Comment: Interpretive Data No reference range established. Current interpretive data was last revised 2018. Testing performed by: [address] [address] Creatinine Ur 19.8 mg/dL [facility] Comment: Interpretive Data No reference range established. Current interpretive data was last revised 2018. Testing performed by: [address] [address] Albumin Creatinine Ratio, Ur See Comment 1 - 29 [facility] Comment: Unable to calculate Testing performed by: [address] [address] Urine 08/03/2024 6:49 PM ELECTRON BEAM MACHINE WELDER SETTER 08/03/2024 6:49 PM ELECTRON BEAM MACHINE WELDER SETTER Yareli Singh MD LAB URINE ORDERABLES Final Result [address] [place] [address] * Dexa Axial Skeleton Bone Density 1 or 2 Site (03/13/2024 8:27 AM CDT) Anatomical Region Laterality Modality Body N/A Other 03/13/2024 10:0 3 PM CDT Narrative 03/13/2024 10:17 PM CDT EXAM DESCRIPTION: DEXA AXIAL SKELETON BONE DENSITY 1 OR MORE SITES REASON FOR STUDY: 78 y/o year old F with given history of: 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 MF: DAMIAN Report ID: [id number] Reading Location: [place] [address] Yareli Singh MD IMG DXA PROCEDURES Final R esult * COLONOSCOPY (02/23/2020 7:16 AM CDT) Anatomical Region Laterality Modality Other Narrative Procedure Note Juan Carlos Pop MD - 02/23/2020 7:16 AM CDT [facility] Patient Name: Odette Trujillo Procedure Date: 02/23/2020 7:16 AM Date of : 1945 Admit Type: Outpatient Age: 74 Gender: Female Attending MD: Juan Carlos Pop M.D. Room: [facility] ENDOSCOPY ROOM 2 Note Status: [...] under direct vision. The Pediatric Colonoscope PCF-H190L [id number] was introducedthrough the anus and advanced to [...] malignant neoplasm of colon CPT copyright 2017 [employer]. All rights reserved. The codes documented in this report are preliminary and upon tobacco buyer reviewmay be revised to meet current compliance requirements. Recognized by the [employer] for promoting quality in endoscopy Juan Carlos Pop MD ENDOSCOPY PROCEDURES Final Re sult * Lipid panel (06/18/2016 7:39 AM ELECTRON BEAM MACHINE WELDER SETTER) [facility] Cholesterol 178 125 - 200 mg/dL [facility] Comment: [facility] [address] [place] [address] Director: NORBERTO MARTINEZ DO,MPH 06/18/2016 7:39 AM ELECTRON BEAM MACHINE WELDER SETTER Yareli Singh MD LAB BLOOD ORDERABLES Final Result [facility] RESULTS from Last 3 Months or Most Recently Relevant to Health Maintenance Insurance [facility] MEDICARE ADVANTAGE T MEDICARE T MEDICARE AET MEDICARE Advance Directives For more information, please contact: [phone] Documents on File Type Date Recorded Patient Bank Note Designer Expl anation ADVANCE DIRECTIVE 08/28/2019 DNR ADVANCE DIRECTIVE 01/17/2009 POWER OF A TTORNEY ADVANCE DIRECTIVE 01/17/2009 POWER OF A TTORNEY-MEDICAL ADVANCE DIRECTIVE 10/11/1994 LIVING DENIS L * Full Code (Latest Code Status on File) Date Activated Date Inactivated Comments 02/23/2020 7:37 AM 02/23/2020 1:00 PM * Full Code Date Activated Date Inactivated Comments 02/23/2020 7:36 AM 02/23/2020 7:37 AM Care Teams Mid Level Game Designer Relationship Specialty Start Date End Date Yareli Singh MD PCP - General 10/12/16 Robert Morrissey MD [address] [facility] [address] [place] [address] Neurology 01/04/17 Mars Parnell MD [facility] [facility] [address] [place] [address] Orthopedic Surgery 01/04/17 She Castellon MD [facility] [facility] [place] [address] Dermatology 01/04/17 Edmund uDran MD [address] [place] [address] Ophthalmology 01/04/17 Miguel Joe MD [address] [place] [address] Otolaryngology 01/04/17 Alessia Zaldivar MD [address] [facility] [place] [address] Consulting Physician Diagnostic Radiology 03/02/24 Tio Irving MD [address] [address] Referring Physician General Surgery 03/02/24
--- OUTSIDE RECORDS SUMMARY | 2025-03-03 07:40 | XMS_ITS | Clinical Summary ---
Author Organization [facility] Address [address] [place] [address] Phone Care Team Providers Care Launch Operator Name Role Phone Yareli Singh MD Primary Care Provider [phone] Tio Irving MD Unavailable Allergies Active Allergy Reactions Criticality Noted Date Comments Brimonidine Itching Low 11/27/2022 Metformin Diarrhea Low 03/04/2020 Milk (Cow) Diarrhea,Other (see Comments) Low 04/06/2019 Reaction: bloating, diarrhea, Reaction: bloating, diarrhea, Semaglutide Nausea Low 03/29/2021 Nausea, GERD, GERD associated wheezing Wheat Other (see Comments),Shortness of Breath High 04/06/2019 Reaction: sob, stomach upset, Reaction: sob, stomach upset, Medications Fauzq-J-Qkudfbw sidase (BEANO PO)Indications: 2 prn Indications: 2 [...] 08/26/19 24 Active pancrelipase, lipase-protease -amylase, (CREON 506[address]) [address]-[address] Particles Take 3 Capsules by mouth. 08/26/19 Active famotidine (Pepcid) 20 MG Tablet Take 20 mg by mouth 2 times daily. Active Abaloparatide (Tymlos) 3120 MCG/1.56ML Solution Pen-injector by Subcutaneous route. Active Active Problems Problem Noted Date Diagnosed Date Peripheral vertigo Sensorineural hearing loss Fistula, labyrinthine, semicircular canal Encounters Date Type Department Care Team Description 12/24/2024 Telephone [facility] [address] [place] [address] Tio Irving MD Results from Last 3 Months Immunizations Immunization Administration Dates Next Due Covid-19, Mrna, Lnp-s, Pf, 3 0 Mcg/0.3 Ml Dose, Brice-sucrose (Faculte morrow top) 10/18/2021 Influenza Vaccine,unspecifie d Formulation [...] Visit [facility] - [place] [address] [place] [phone] Tio Irving MD [address] [phone] Health Maintenance Due Date Last Done Comments Hepatitis C Virus (HCV) Screening 1945 SARS-COV-2 Immunization ( season) 2024 08/27/2023, 04/30/2022, 10/18/2021, Additional history exists Influenza Immunization (#1) 03/15/202504/15, 04/17/2023, 04/23/2022, Additional history exists DEXA Bone Density 03/13/2026 [...] Syncytial Virus (RSV) Immunization (Adult) Completed 06/11/2023 Cologuard Discontinued Hepatitis B Immunization Aged Out [...] to complete this topic Insurance MEDICARE C AET Care Teams Launch Operator Relationship Specialty Start Date End Date Yareli Singh MD [address] [facility] [place] [address] PCP - General Internal Medicine 07/24/17 Tio Irving MD #[address] [facility] [address] [place] [address] Consulting Physician Endocrinology 11/05/23
--- OUTSIDE RECORDS SUMMARY | 2025-03-03 07:40 | XMS_ITS | Encounter Summary ---
Author Organization [facility] Address [address] [place] [address] Care Team Providers Care Marketing Budget Analyst Name Role Phone Yareli Singh MD Primary Care Provider [phone] Robert Morrissey MD Unavailable [phone] Kiesha Martinez MD Unavailable [phone] She Castellon MD Unavailable [phone] Edmund Duran MD Unavailable [phone] Benjamín Stinson MD Unavailable [phone] Alessia Zaldivar MD Unavailable [phone] Tio Irving MD Unavailable Reason for Referral * Consultation (Routine) - Closed Specialty Diagnoses / Procedures Referred By Contac t Referred To Contact Orthopedic Surgery Diagnoses Arthritis of right knee Yareli Singh MD Phone: tel: fax: Kiesha Martinez MD [address] [address] Phone: tel:[phone] fax: Referral ID Status Reason Start Date Expiration Date V isits Requested Visits Authorized [id number] Closed Specialty Services Required 11/27/2024 12/27/2025 12 12 Question Answer Please select the performing region: External Order [171] To Provider NOTE: we will do our best to honor your provider preference, but scheduling the patient in a timely manner in our clinic will take precedence. KIESHA MARTINEZ [[id number]] # of visits: 12 Comments Refer to KIESHA Moreno for right knee arthritis evaluate for possible knee replacement and advise, also review range motion in her previously operated left shoulder, Please contact patient to schedule an appointment. Thank you Encounter Details Date Type Department Care Team (Late st Contact Info) Description 11/27/[address] 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 Gender Identity Not on file Sexual Orientation [...] Primary documented in this encounter Care Teams Marketing Budget Analyst Relationship Specialty Start Date End Date Yareli Singh MD PCP - General 10/12/16 Robert Morrissey MD [facility] [facility] [address] [place] [address] Neurology 01/04/17 Kiesha Martinez MD [address] [place] [address] [address] [place] [address] Orthopedic Surgery 01/04/17 She Castellon MD [address] [place] [address] [address] [place] [address] Dermatology 01/04/17 Edmund Duran MD [address] [place] [address] Ophthalmology 01/04/17 Benjamín Stinson MD [address] [place] [address] Otolaryngology 01/04/17 Alessia Zaldivar MD [address] [place] [address] Consulting Physician Diagnostic Radiology 03/02/24 Tio Irving MD [address] [facility] [address] [address] Referring Physician General Surgery 03/02/24 documented as of this encounter
[2025-03-03 09:22] LABS: Hematocrit 44.2 % (37.0-47.0); Hemoglobin 14.1 g/dL (12.0-15.0); Immature Granulocyte Percent A 0.4 % (0-0.5); Lymphocytes Absolute Auto 1.62 K/mm3 (0.9-3.2); Mean Corpuscular HGB Conc 31.9 g/dl (32-36); Mean Corpuscular Hemoglobin 27.7 pg (26-34); Mean Corpuscular Volume 86.8 fl (80-100); Nucleated Red Blood Cells Absolute Auto 0.000 K/mm3 (0.0-0.012); Nucleated Red Blood Cells Perc 0.0 % (0.0-0.2); Platelet Count Result 215 k/mm3 (150-375); Red Blood Count 5.09 M/mm3 (4.2-5.4); White Blood Count 8.0 K/mm3 (4.5-10.0)
[2025-03-03 09:35] LABS: Albumin Level 4.1 g/dL (3.5-5.1); Hemoglobin A1C 5.7 % (<5.7)
[2025-03-03 10:28] LABS: MRSA (PCR) NOT DETECTED (NOT DETECTE)
== END 2025-03-03 07:36 | disposition home or self-care (01) ==
LOC: ANHSURGERY 07:36
PROVIDERS: PCP Internal Medicine Geriatric Medicine; Visit Provider Orthopaedic Surgery
DX: M17.11 Unilateral primary osteoarthritis, right knee (principal); Z01.818 Encounter for other preprocedural examination
CPT/HCPCS: 80307; 82040; 83036; 85025; 87641

== ENCOUNTER 2025-03-25 01:07 | Day surgery (SDC) | payer MEDICARE, SELFPAY ==
--- NOTE | 2025-03-03 07:44 | PC.NURSE ---
Report to the Outpatient Waiting Room, entrance under the green pavilion located off [facility], at time _8 am on date __03/25/25 . Planned Procedure Time: __10 am .? Time changes happen often and if your time is changed the preop area will call you the afternoon before. - You and your visitor will be asked to self-screen and do not enter if you have any COVID symptoms. Please call surgeon if you need to reschedule. - A mask is optional within the hospital at this time. Patients may have clear liquids (water, carbonated beverages, clear teas, apple juice) until 3 hours prior to surgery ( 7am) with a maximum of 20 ounces. - No food from midnight until time of surgery and no smoking, or chewing tobacco (or any form of nicotine). No chewing gum, candy or mints. Take only the following medications with a SIP of water on the morning of surgery: EYE DROPS DO NOT STOP ANY OF YOUR OTHER PRESCRIPTION MEDICATIONS PRIOR TO SURGERY EXCEPT THE FOLLOWING Hold all vitamins and supplements for 3 days per anesthesiologist.LAST DOSE 03/21/25 Medications to discontinue per physician NONE Please no make-up, nail irish, hairspray, perfume, deodorant, or body powder the day of surgery.? No jewelry (including any body piercings) or valuables the day of surgery, leave them at home.? Please take a shower or bath the night before, or the morning of, surgery with an antibacterial soap.? Wear comfortable, loose fitting clothing.? Children are encouraged to wear pajamas. - Jewelry must be removed prior to entering the operating room.? Rings and piercings that are not removed may be cut off. - The hospital will not accept responsibility for valuables.? - Please leave all valuables, including medications, at home the day of surgery. If you are going home after surgery, a licensed inventory associate and driver must drive you home.? - NO public transportation without another adult if you receive anesthesia. - We recommend that an adult stay with you for 24 hours following discharge. - We also recommend that you do not drive, make important decision, drink alcoholic beverages, or take any drugs that were not prescribed by your health care provider for at least 24 hours after your discharge time. For Pediatric surgeries, we recommend two adults accompany the child home. Follow any additional instructions given to you from your surgeon. VERBAL AND WRITTEN instructions given to ___PATIENT_AND SPOUSE FLOYD and asked if any additional questions and then verbalized understanding. Patient advised to call surgeon office or pre surgery nurse liaison [phone] if any additional questions.
[2025-03-03 08:04] VITALS: BMI 24.5
[2025-03-03 08:54] VITALS: BP 152/93; PULSE 64; RESP 18; TEMP 36.9; O2SAT 98
[2025-03-25] VITALS (10 sets, daily range): BP systolic 114–164; BP diastolic 60–93; PULSE 62–82; RESP 12–18; TEMP 36.3–36.4; O2SAT 96–99; BMI 24.3
--- NOTE | ~2025-03-25 | XR_ITS ---
X-rays right knee Indication: Postop Comparison: None Technique: 2 views right knee Findings/Impression: 1. Expected appearance and findings after TKA. 2. No periprosthetic fracture or other complication noted. Reviewed, dictated and finalized at location R.
--- OUTSIDE RECORDS SUMMARY | 2025-03-25 01:11 | XMS_ITS | Encounter Summary ---
Author Organization [facility] Address [address] [place] [address] Care Team Providers Care Sales Donor Recruitment Representative Name Role Phone Yareli Singh MD Primary Care Provider + [phone] Robert Morrissey MD Unavailable [phone] Kiesha Martinez MD Unavailable [phone] She Castellon MD Unavailable [phone] Edmund Duran MD Unavailable [phone] Benjamín Stinson MD Unavailable [phone] Alessia Zaldivar MD Unavailable [phone] Tio Irving MD Unavailable Reason for Referral * Consultation (Routine) - Closed Specialty Diagnoses / Procedures Referred By Contac t Referred To Contact Orthopedic Surgery Diagnoses Arthritis of right knee Yareli Singh MD Phone: tel: fax: Kiesha Martinez MD [address] [facility] [address] [place] [address] Phone: tel: fax: Referral ID Status Reason Start Date Expiration Date V isits Requested Visits Authorized [id number] Closed Specialty Services Required 11/27/2024 12/27/2025 12 12 Question Answer Please select the performing region: External Order [171] To Provider NOTE: we will do our best to honor your provider preference, but scheduling the patient in a timely manner in our clinic will take precedence. KIESHA MARTINEZ [[id number]] # of visits: 12 Comments Refer to KIESHA Moreno for right knee arthritis evaluate for possible knee replacement and advise, also review range motion in her previously operated left shoulder, Please contact patient to schedule an appointment. 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 Gender Identity Not on file Sexual Orientation Not on file Occupation Industry Job Start Date Job End Date retired Not on file Not on file Not on file documented as of this encounter Miscellaneous Notes * Telephone Encounter - Amalia Natarajan - 03/24/2025 3:14 PM CDT Referral sent to KIESHA MARTINEZ Orthopedic Surgery documented in this encounter Plan of Treatment Scheduled Referrals Name Type Priority Associated Diagnoses Order Schedule Ambulatory referral to Orthopedic Surgery Outpatient Referral Routine Arthritis of right knee Expected: 11/27/2024 (Approximate), Expires: 11/27/2025 documented as of this encounter Visit Diagnoses Diagnosis Arthritis of right knee- Primary documented in this encounter Care Teams Sales Donor Recruitment Representative Relationship Specialty Start Date End Date Yareli Singh MD PCP - General 10/12/16 Robert Morrissey MD [address] [facility] [address] [place] [address] Neurology 01/04/17 Kiesha Matrinez MD [facility] [address] [place] [address] Orthopedic Surgery 01/04/17 She Castellon MD [facility] [address] [place] [address] Dermatology 01/04/17 Edmund Duran MD [address] [place] [address] Ophthalmology 01/04/17 Benjamín Stinson MD [address] [place] [address] Otolaryngology 01/04/17 Alessia Zaldivar MD [address] [place] [address] Consulting Physician Diagnostic Radiology 03/02/24 Tio Irving MD [address] [place] [address] Referring Physician General Surgery 03/02/24 documented as of this encounter
--- OUTSIDE RECORDS SUMMARY | 2025-03-25 01:11 | XMS_ITS | Clinical Summary ---
Author Organization CC [facility] [address] Address [address] [place] [address] Phone Care Team Providers Care Specialty Manufacturing Supervisor Name Role Phone Yareli Singh MD Primary Care Provider [phone] Robert Morrissey MD Unavailable [phone] Mars Parnell MD Unavailable [phone] She Castellon MD Unavailable [phone] Edmund Duran MD Unavailable [phone] Miguel Joe MD Unavailable [phone] Alessia Zaldivar MD Unavailable [phone] Tio Irving MD Unavailable Allergies Active Allergy [...] sob, stomach upset, Medications vit A,C and T-rgzhxz-rbrobnjh (OCUVITE with LUTEIN) 1,000 unit-200 mg-60 unit-2 mg tabletIndications:V itamin Deficiency Prevention 1 tablet Active CbIn-BzITP8-hqcmjuz n sod-aloe 0.9 % gel Apply to [...] for 10 days 30 g 025 Active amLODIPine (NORVASC) 5 mg tablet Take 1 tablet (5 mg total) by mouth daily as needed (for systolic blood pressure over 140.) 30 tablet 025 Active cholestyramine (QUESTRAN) 4 gram packetIndications:D [...] 2.2 Assessment & Plan (08/09/2024 6:30 PM MANAGER PROJECT MANAGEMENT): Chronic, confirmed on DEXA 03/2024. Taking Tymlos without adverse effects. Continue same. Recheck BMP, and vitamin D today. Abnormality of left breast on screening mammogra m 02/24/2024 Overview (02/27/2024): Exam Ended: 02/24/24 12:18 = BI-RADS: 4 - Suspicious for malignancy. Biopsy is recommended.Alessia Zaldivar M.D: . Needle biopsy 02/27/2024 = Vitamin D deficiency 07/09/2023 Assessment & Plan (07/09/2023 7:16 PM MANAGER PROJECT MANAGEMENT): Will re-check serum level today in office [...] classes Assessment & Plan (05/21/2022 8:51 PM MANAGER PROJECT MANAGEMENT): Pre-perimetric with full Cesar visual field (HVF) [...] lesion. Assessment & Plan (07/09/2023 7:16 PM MANAGER PROJECT MANAGEMENT): Repeat US in november showed unchanged nodule [...] months. Assessment & Plan (08/09/2024 6:27 PM MANAGER PROJECT MANAGEMENT): Chronic, controlled. Last HbA1c last week was [...] before. Assessment & Plan (09/20/2023 10:18 AM MANAGER PROJECT MANAGEMENT): Last HbA1c in August was 6.2. no [...] her Master Degree in Social Work from [employer]. Miguel Joe M.D. Buffer Operator Department of Otolaryngology - Head and Neck Surgery Chief, Otologic and Neurotologic Surgery Assessment & Plan (08/09/2024 6:25 PM MANAGER PROJECT MANAGEMENT): Controlled on Topamax nightly and propranolol BID. [...] Cardiology Assessment & Plan (08/09/2024 6:24 PM MANAGER PROJECT MANAGEMENT): Chronic, at goal. BP stable in office [...] diet. Assessment & Plan (09/20/2023 10:15 AM MANAGER PROJECT MANAGEMENT): BP stable in office today on current therapy. No acute findings on exam. Continue current regimen and low salt diet. Assessment & Plan (07/09/2023 7:14 PM MANAGER PROJECT MANAGEMENT): BP borderline in office today at 140/78 [...] last week unremarkable. Refill sent to pharmacy. Bracken diet. Resolved Problems Problem Noted Date Diagnosed [...] 08/26/2023 Assessment & Plan (07/09/2023 7:21 PM MANAGER PROJECT MANAGEMENT): For several months but worse in the [...] surgery Assessment & Plan (05/21/2022 8:50 PM MANAGER PROJECT MANAGEMENT): Tmax low 20s with modest response to [...] 023 Assessment & Plan (05/29/2021 3:02 PM MANAGER PROJECT MANAGEMENT): Patient presents with reports of rhinorrhea that [...] 08/13/2022 Assessment & Plan (05/29/2021 3:00 PM MANAGER PROJECT MANAGEMENT): Patient has c/o sore throat most likely viral in nature and secondary to her post nasal drip. On exam mild erythema noted. No exudate present. She had rapid test for strep that was negative. Symptom management was encouraged. Special screening for malign ant neoplasms, colon 01/07/2020 08/13/2022 Overview (01/07/2020): Added automatically from request for surgery [id number] Encounter for screening colonoscopy 09/01/2019 08/11/2021 Overview (09/01/2019): Added automatically from request for surgery [id number] Achilles tendinitis of right lower extremity 8 [...] by gianfranco was Followed by MIGUEL JOE [[id number]]@ [facility] Vitreous syneresis 09/14/2015 Epiretinal membrane (ERM) [...] - 02/19/2025 11:59 PM CDT Hospital Encounter [facility] [address] [place] [address] Encounter for screening mammogram for breast cancer Discharge Disposition: Discharge to home or self care 02/15/2025 Telephone [facility] [address] [facility] [address] [place] [phone] Teresa Joseph Chart Review (Med adherence) 02/12/2025 Telephone [facility] [address] [facility] [address] [place] [phone] Yareli Singh MD Mammogram 01/20/2025 3:00 PM CDT Office Visit [facility] [address] [facility] [address] [place] [phone] Philip Anne NP Allergic dermatitis due to poison svetlana (Primary Dx); Prediabetes 01/20/2025 Telephone [facility] [address] [place] [address] Naima Kimbrough RN 01/11/2025 [facility] [address] [place] [address] Cathryn Bryant, MIC Hemoglobin A1c, CBC with auto differential, Basic metabolic panel, Additional followed-up results: 3 01/08/2025 11:00 AM CDT Lab [facility] [address] [place] [address] HTN (hypertension), benign; Prediabetes; Osteoporosis, idiopathic 01/08/2025 10:00 AM CDT [facility] [address] [place] [address] Cathryn Bryant, MIC Pre-op evaluation (Primary Dx); HTN (hypertension), benign; Prediabetes from Last 3 Months Immunizations Immunization Administration Dates Next Due COVID-19 mRNA (Cavium) 0.3 m L (30 mcg) vaccine (12 [...] by gianfranco was Followed by MIGUEL JOE [[id number]]@ [facility] Osteoporosis 2023 Thyroid disease 2020 Arthritis 1999 year Migraines 1999 Family History Medical History Relation [...] on file Legal Sex Female 12:25 AM MANAGER PROJECT MANAGEMENT Gender Identity Not on file Sexual Orientation [...] 06/18/2017 06/18/2016, 11/2015, 06/18/2016, Additional history exists Foot Exam 03/02/2025 03/02/2024 Covid-19 Vaccine (2024-08 6 season) 2025 08/27/2023, 04/30/2022, 10/18/2021, Additional history exists Influenza Vaccine (#1) 2025 , 04/17/2023, 04/23/2022, [...] Completed 10/26/2024 Medical Devices Implanted Type Area Certified Addiction Counselor Device Identifier Shelf Expiration Date Model / Serial / Lot [employer] Marker Tissue Side Deploy Applicator U Shaped Radiopaque Clip Titanium Collagen Revolve 10ga [id number] - [id number] - [id number] Implanted:Qty: 1 on 02/27/2024 by Mickey Licea MD at [facility] Breast Left: Breast [employer] 03/03/2024 [id number] / [id number] / [id number] Description:Stereotactic bio psy, central inferior left breast. 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) DEXA AXIAL SKELETON BONE DENSITY 1 OR MORE SITES Schedule Routine, Read Routine (OP Routine) 03/13/2024 8:27 AM CDT Menopause COLONOSCOPY 02/23/2020 7:16 AM CDT LIPID PANEL Routine 06/18/2016 7:39 AM MANAGER PROJECT MANAGEMENT from Last 3 Months or Most Recently Relevant to Health Maintenance Results * (ABNORMAL) DIABETES EYE EXAM (02/22/2025 2:26 PM CDT) SCRIBED DIABETIC DILATED EYE EXAM Abnormal Narrative Hui Dalton MA - 02/22/2025 2:26 PM CDT MINIMAL BACKGROUND RETINOPATHY BOTH EYES us Historical Provider HEALTH MAINTENANCE Edited Result - Final * Screening [...] calcification, or architectural distortion in either breast. us Yareli Singh MD IMG MAMMO PROCEDURES Final [...] was last reviewed 2021. Testing performed by: [facility], [address] [place] [address], [place]., [address] Blood 01/08/2025 5:12 PM CDT 01/08/2025 5:12 PM CDT Cathryn Bryant NP LAB BLOOD ORDERABLES Final Resul t [facility] [address] [facility] Department [place] [address] * Basic metabolic panel (01/08/2025 5:12 PM CDT) Sodium 140 135 - 145 mmol/L Comment:Testing performed by : [address] [address] Potassium, pl 4.2 3.3 - 4.9 mmol/L CERNER CH Comment:Testing performed by : [address] [address] Chloride 106 97 - 110 mmol/L CERNER CH Comment:Testing performed by : [facility], [address] [place] [address], [address] CO2 23 22 - 32 mmol/L CERNER CH Comment:Testing performed by : [facility], [address] [place] [address], [address] Anion gap 11 2 - 15 mmol/L CERNER CH Comment:Testing performed by : [address], [address] BUN 20 6 - 25 mg/dL CERNER CH Comment:Testing performed by : [address], [address] Creatinine 0.85 0.60 - 1.10 mg/dL CERNER CH Comment:Testing performed by : [address], [address] Glucose 85 70 - 199 mg/dL CERNER [...] was last revised 2022. Testing performed by: [address] [address] Calcium 9.1 8.5 - 10.3 mg/dL CERNER CH Comment:Testing performed by : [address] [address] Blood 01/08/2025 5:12 PM CDT 01/08/2025 5:12 PM CDT Cathryn Bryant LAB BLOOD ORDERABLES Final Resul t Performing Organization Address [facility] de Phone Number [facility] [address] Department [place] [address] * (ABNORMAL) Vitamin D 25 hydroxy (01/08/2025 4:40 PM CDT) Vitamin D 25-OH 27(L) 30 - 80 ng/mL Comment:Testing performed by : [address] [address] Blood 01/08/2025 4:40 PM CDT 01/08/2025 4:47 PM CDT Result [facility] Cathryn Bryant LAB BLOOD ORDERABLES Final Resul t Performing Organization Address [facility] de Phone Number F[facility]A [facility] Department [place] [address] * (ABNORMAL) Hemoglobin A1c (01/08/2025 10:30 AM CDT) Pathologist [facility] Hgb A1C 5.7(H) 4.0 - 5.6 % Comment:Testing performed by : [address] [address] Estimated Average Glucose 117 mg/dL F[facility]A Comment: The ADA recommends reporting an estimated Average Glucose (eAG) with all Hemoglobin A1c results using the equation derived from a study of 507 normal and diabetic adults. Minority populations were underrepresented and children were not included. (Diabetes Care 31:7708-8339, 2008). The eAG is not equivalent to a fasting glucose. Testing performed by: [address] [address] Blood 01/08/2025 10:3 0 AM CDT 01/09/2025 4:47 AM CDT Cathryn Bryant LAB BLOOD ORDERABLES Final Resul t Performing Organization Address [facility]/State/ZIP Co de Phone Number FABIOLA [address] Department [place] [address] * Differential, auto (01/08/2025 10:27 AM CDT) Neutrophil abs 5.56 1.50 - 6.50 K/cumm Comment:Testing performed by : [facility], [address] [place] [address]., [address] Imm gran abs 0.03 0.00 - 0.10 K/cumm CERNER Comment:Testing performed by : [facility], [address] [place] [address]., [address] Lymphocyte abs 1.64 0.80 - 3.30 K/cumm CERNER Comment:Testing performed by : [address] [address] Monocyte abs 0.74 0.20 - 0.80 K/cumm CERNER Comment:Testing performed by : [address] [address] Eosinophil abs 0.19 0.00 - 0.50 K/cumm CERNER Comment:Testing performed by : [address] [address] Basophil abs 0.05 0.00 - 0.10 K/cumm CERNER Comment:Testing performed by : [address] [address] Neutrophil pct 67.7 % CERNER Comment: Interpretive Data Percent cell count reference ranges are not reported, since discordance with absolute values may lead to misinterpretation of CBC data. Current Interpretive Data was last revised on 2017. Testing performed by: [address] [address] Imm gran pct 0.4 % CERNER Comment: Interpretive Data Percent cell count reference ranges are not reported, since discordance with absolute values may lead to misinterpretation of CBC data. Current Interpretive Data was last revised on 2017. Testing performed by: [address] [address] Lymphocyte pct 20.0 % CERNER Comment: Interpretive Data Percent cell count reference ranges are not reported, since discordance with absolute values may lead to misinterpretation of CBC data. Current Interpretive Data was last revised on 2017. Testing performed by: [facility], [address] [place] [address]., [address] Monocyte pct 9.0 % FABIOLA Comment: Interpretive Data Percent cell count reference ranges are not reported, since discordance with absolute values may lead to misinterpretation of CBC data. Current Interpretive Data was last revised on 2017. Testing performed by: [address] [address] Eosinophil pct 2.3 % F[facility]A Comment: Interpretive Data Percent cell count reference ranges are not reported, since discordance with absolute values may lead to misinterpretation of CBC data. Current Interpretive Data was last revised on 2017. Testing performed by: [address] [address] Basophil pct 0.6 % [facility]A Comment: Interpretive Data Percent cell count reference ranges are not reported, since discordance with absolute values may lead to misinterpretation of CBC data. Current Interpretive Data was last revised on 2017. Testing performed by: [address] [address] Blood 01/08/2025 10:2 7 AM CDT 01/08/2025 4:40 PM CDT Cathryn Bryant NP LAB BLOOD ORDERABLES Final Resul t [place] [address] Department [place] [address] * (ABNORMAL) CBC with auto differential (01/08/2025 10:27 AM CDT) WBC 8.21 3.80 - 9.90 K/cumm Comment:Testing performed by : [address] [address] Hgb 14.0 11.9 - 15.5 g/dL F[facility]IOLA Comment:Testing performed by : [address] [address] Hct 43.8 35.6 - 45.5 % F[facility]A Comment:Testing performed by : [address] [address] Plt 196 150 - 400 K/cumm CERNER Comment:Testing performed by : [address], [address] MPV 11.7 9.1 - 12.3 fL [facility] Comment:Testing performed by : [address], [address] RBC 5.04 3.90 - 5.20 M/cumm CERNER Comment:Testing performed by : [address], [address] MCV 86.9 81.3 - 96.4 fL [facility] Comment:Testing performed by : [address], [address] MCH 27.8 27.1 - 33.3 pg [facility] Comment:Testing performed by : [address], [address] MCHC 32.0(L) 32.3 - 35.7 g/dL [facility] Comment:Testing performed by : [address], [address] RDW CV 14.9 11.1 - 14.9 % [facility] Comment:Testing performed by : [address], [address] RDW SD 47.8 35.7 - 48.1 fL [facility] Comment:Testing performed by : [address], [address] NRBC abs 0.00 0.00 - 0.01 K/cumm [facility] Comment:Testing performed by : [address], [address] Blood 01/08/2025 10:2 7 AM CDT 01/08/2025 4:40 PM CDT Cathryn Bryant NP LAB BLOOD ORDERABLES Final Resul t [facility] [address] Department [place] [address] * Albumin Creatinine Ratio, Urine (08/03/2024 6:49 PM MANAGER PROJECT MANAGEMENT) Albumin Ur <12.0 mg/L Comment: Interpretive Data No reference range established. Current interpretive data was last revised 2018. Testing performed by: [address] [address] Creatinine Ur 19.8 mg/dL [facility] Comment: Interpretive Data No reference range established. Current interpretive data was last revised 2018. Testing performed by: [facility], [address] [place] [address]., [address] Albumin Creatinine Ratio, Ur See Comment 1 - 29 F[facility]A Comment: Unable to calculate Testing performed by: [address] [address] Urine 08/03/2024 6:49 PM MANAGER PROJECT MANAGEMENT 08/03/2024 6:49 PM MANAGER PROJECT MANAGEMENT us Yareli Singh MD LAB URINE ORDERABLES Final Result Performing Organization Address City/State/[facility] Co de Phone Number FABIOLA [address] Department [place] [address] * Dexa Axial Skeleton Bone Density 1 or 2 Site (03/13/2024 8:27 AM CDT) Anatomical Region Laterality Modality Body N/A Other 03/13/2024 10:0 3 PM CDT Narrative 03/13/2024 10:17 PM CDT EXAM DESCRIPTION: DEXA AXIAL SKELETON BONE DENSITY 1 OR MORE SITES REASON FOR STUDY: 78 y/o year old F with given history of: Menopause screening Certified Addiction Counselor/Model: [employer] (S/N [id number]) CLINICAL INFORMATION: Current height: 63 inches Maximum [...] Gumaro Mayo M.D. MF: DAMIAN Report ID: [id number] Reading Location: [address] Note Gumaro Mayo MD - 03/13/2024 EXAM DESCRIPTION: DEXA AXIAL SKELETON BONE DENSITY 1 OR MORE SITES REASON FOR STUDY: 78 y/o year old F with given history of: Menopause screening Certified Addiction Counselor/Model: [employer] (S/N [id number]) CLINICAL INFORMATION: Current height: 63 inches Maximum [...] Gumaro Mayo M.D. MF: DAMIAN Report ID: [id number] Reading Location: [id number] Yareli Singh MD IMG DXA PROCEDURES Final R esult * COLONOSCOPY (02/23/2020 7:16 AM CDT) Anatomical Region Laterality Modality Other Narrative Procedure Note Juan Carlos Pop MD - 02/23/2020 7:16 AM CDT [facility] Patient Name: Odette Trujillo Procedure Date: 02/23/2020 7:16 AM Date of : 1945 Admit Type: Outpatient Age: 74 Gender: Female Attending MD: Juan Carlos Pop M.D. Room: [facility] ENDOSCOPY ROOM 2 Note Status: [...] under direct vision. The Pediatric Colonoscope PCF-H190L [id number] was introducedthrough the anus and advanced to [...] malignant neoplasm of colon CPT copyright 2017 [employer]. All rights reserved. The codes documented in this report are preliminary and upon manager outreach reviewmay be revised to meet current compliance requirements. Recognized by the [employer] for promoting quality in endoscopy us Juan Carlos Pop MD ENDOSCOPY PROCEDURES Final Re sult * Lipid panel (06/18/2016 7:39 AM MANAGER PROJECT MANAGEMENT) [facility] Cholesterol 178 125 - 200 mg/dL [facility]ISTORICAL RESULTS Comment: Test performed at [facility] [address] [address] Director: NORBERTO MARTINEZ DO,MPH 06/18/2016 7:39 AM MANAGER PROJECT MANAGEMENT Yareli Singh MD LAB BLOOD ORDERABLES Final Result [facility] HISTORICAL RESULTS from Last 3 Months or Most Recently Relevant to Health Maintenance Insurance UHC MEDICARE ADVANTAGE [facility] MEDICARE T MEDICARE T MEDICARE Advance Directives For more information, please contact: [phone] Documents on File Type Date Recorded Patient Regional Program Manager Expl anation ADVANCE DIRECTIVE 08/28/2019 DNR ADVANCE DIRECTIVE 01/17/2009 POWER OF A TTORNEY ADVANCE DIRECTIVE 01/17/2009 POWER OF A TTORNEY-MEDICAL ADVANCE DIRECTIVE 10/11/1994 LIVING DENIS L * Full Code (Latest Code Status on File) Date Activated Date Inactivated Comments 02/23/2020 7:37 AM 02/23/2020 1:00 PM * Full Code Date Activated Date Inactivated Comments 02/23/2020 7:36 AM 02/23/2020 7:37 AM Care Teams Specialty Manufacturing Supervisor Relationship Specialty Start Date End Date Yareli Singh MD PCP - General 10/12/16 Robert Morrissey MD [address] [place] [address] Neurology 01/04/17 Mars Parnell MD [address] [place] [address] Orthopedic Surgery 01/04/17 She Castellon MD [facility] [facility] [facility] [facility] [place] [address] Dermatology 01/04/17 Edmund Duran MD [address] [place] [address] Ophthalmology 01/04/17 Miguel Joe MD [address] [place] [address] [place] [address] Otolaryngology 01/04/17 Alessia Zaldivar MD [address] [place] [address] [place] [address] Consulting Physician Diagnostic Radiology 03/02/24 Tio Irving MD [address] [place] [address] [place] [address] Referring Physician General Surgery 03/02/24
--- OUTSIDE RECORDS SUMMARY | 2025-03-25 01:11 | XMS_ITS | Clinical Summary ---
Author Organization [facility] Address [address] [place] [address] Care Team Providers Care Macadam Raker Name Role Phone Heidi Singh MD Primary Care Provider [phone] Source Comments [facility],non-owned Affiliates and Associated Physician Practices is amultiple site organization consisting of ambulatory clinics and hospital sitesin [place], [place], [place] and [place]. This disclosure is being madepursuant to the Care Everywhere program and may not contain all information available regarding this patient. Last updated 18.[facility] Allergies Active Allergy Reactions Criticality Noted Date [...] 1000 UNIT capsule Indications: once daily Active Wywao-M-Rgcehoh sidase (BEANO PO) Active Active Problems Problem [...] her Master Degree in Social Work from [employer]. Benjamín Stinson M.D. 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 Gender Identity Not on file Sexual Orientation [...] (2 - Td or Tdap) 08/11/2019 08/11/2009 DEPRESSION SCREENING 07/15/2024 DIABETES - URINE PROTEIN SCREENING 07/15/2024 MEDICARE AWV CALENDAR YEAR 2024 DIABETES-HGB A1C 01/31/2025 08/03/2024 COVID-19 VACCINE (2024- season) 2025 04/30/2022, 10/18/2021, 05/19/2021, Additional history exists INFLUENZA VACCINE (#1) 2025 , 04/15/2019, 04/02/2018, Additional history exists PNEUMOCOCCAL VACCINE 50+ Completed 016, 11/16/2014, 07/14/2010 ZOSTER VACCINE Completed 06/22/2018, 03/16, 12/09/2008 BONE DENSITY TESTING Completed 03/13/2024 HEPATITIS B VACCINE Aged Out No longe [...] patient's age to complete this topic Insurance UHC MANAGED MEDICARE ADV Care Teams Macadam Raker Relationship Specialty Start Date End Date Heidi Singh MD [address] [place] [address] PCP - General 11/09/14
--- OUTSIDE RECORDS SUMMARY | 2025-03-25 01:11 | XMS_ITS | Encounter Summary ---
Author Organization [facility] Healthcare Address [address] [place] [address] Care Team Providers Care Ammunition Supervisor Name Role Phone Yareli Singh MD Primary Care Provider [phone] Robert Morrissey MD Unavailable [phone] Mars Martinez MD Unavailable [phone] She Castellon MD Unavailable [phone] Edmund Duran MD Unavailable [phone] Miguel Stinson MD Unavailable [phone] Fredy Wang MD Unavailable [phone] Alessia Zaldivar MD Unavailable [phone] Tio Irving MD Unavailable Reason for Visit * Reason Onset Date Comments Scheduling Appointments 11/16/2020 Reminder Mammogram Appt Encounter Details Date Type Department Care Team (Late st Contact Info) Description 11/16/2020 Telephone [facility] [address] [place] [address] Sarika Franco RT Scheduling Appointments (Reminder Mammogram [...] on file Legal Sex Female 12:25 AM 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 Gender Identity Not on file Sexual Orientation [...] COVID: Suspected 05/29/2021 05/29/2021 05/29/2021 2:15 PM 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 documented as of this encounter Care Teams Ammunition Supervisor Relationship Specialty Start Date End Date Yareli Singh MD PCP - General 10/12/16 Robert Morrissey MD [address] [place] [phone] Neurology 01/04/17 Mars Martinez MD [address] [place] [address] [address] [place] [address] Orthopedic Surgery 01/04/17 She Castellon MD [facility] [facility] [place] [address] Dermatology 01/04/17 Edmund Duran MD [address] [place] [address] Ophthalmology 01/04/17 Miguel Stinson MD [address] [place] [address] Otolaryngology 01/04/17 Fredy Wang MD [address] [place] [address] [place] [address] Consulting Physician Endocrinology 05/21/22 03/01/24 Alessia Zaldivar MD [address] [place] [address] Consulting Physician Diagnostic Radiology 03/02/24 Tio Irving MD [address] [facility] [address] [place] [address] Referring Physician General Surgery 03/02/24 documented as of this encounter
--- OUTSIDE RECORDS SUMMARY | 2025-03-25 01:11 | XMS_ITS | Clinical Summary ---
Author Organization [facility] Address [address] [place] [address] Phone Care Team Providers Care Payroll Accounting Manager Name Role Phone Yareli Singh MD Primary Care Provider [phone] Tio Irving MD Unavailable Allergies Active Allergy Reactions Criticality Noted Date Comments Brimonidine Itching Low 11/27/2022 Metformin Diarrhea Low 03/04/2020 Milk (Cow) Diarrhea,Other (see Comments) Low 04/06/2019 Reaction: bloating, diarrhea, Reaction: bloating, diarrhea, Semaglutide Nausea Low 03/29/2021 Nausea, GERD, GERD associated wheezing Wheat Other (see Comments),Shortness of Breath High 04/06/2019 Reaction: sob, stomach upset, Reaction: sob, stomach upset, Medications Hypcy-W-Apmxxej sidase (BEANO PO)Indications: 2 prn Indications: 2 [...] 08/26/19 24 Active pancrelipase, lipase-protease -amylase, (CREON 86901) [address] Particles Take 3 Capsules [...] 12/24/2024 Telephone [facility] - Endocrinology [facility] [address] [place] [address] Tio Irving MD Results from Last 3 Months Immunizations Immunization Administration Dates Next Due Covid-19, Mrna, Lnp-s, Pf, 3 0 Mcg/0.3 Ml Dose, Brice-sucrose (Novatek morrow top) 10/18/2021 Influenza Vaccine,unspecifie d Formulation [...] Visit [facility] End[facility]ology - [place] [address] [place] [id number] Tio Irving MD [address] [phone] Health Maintenance Due Date Last Done Comments Hepatitis C Virus (HCV) Screening 1945 Influenza Immunization (#1) 03/15/202504/15, 04/17/2023, 04/23/2022, Additional history exists SARS-COV-2 Immunization ( season) 2025 08/27/2023, 04/30/2022, 10/18/2021, Additional history exists DEXA [...] topic Insurance MEDICARE C AET Care Teams Payroll Accounting Manager Relationship Specialty Start Date End Date Yareli Singh MD [address] [facility] [place] [address] PCP - General Internal Medicine 07/24/17 Tio Irving MD [address] [facility] [address] [place] [address] Consulting Physician Endocrinology 11/05/23
--- NOTE | 2025-03-25 07:08 | WPDHPUPDATE1 ---
History and Physical Update Update Date/Time: 03/25/25 07:08 History and Physical has been reviewed, including an updated exam of the patient. There are NO changes in the patient's condition. Risks, benefits, and alternatives have been discussed and questions answered. Patient agrees to proceed with procedure.
[2025-03-25] MEDS: TRANEXAMIC ACID 1,000MG/ISO100 1,000 MG/100 ML BAG 200 MG IVPB (08:30)
[2025-03-25] MEDS: LACTATED RINGERS 1,000 ML 30 ML IV CONT ×2 (08:30→13:43)
[2025-03-25] MEDS: ACETAMINOPHEN 500 MG TABLET 1000 MG PO (08:45)
--- NOTE | 2025-03-25 09:44 | WPDANESEPPF ---
Anes - Initial Pre Proc Eval Procedure: Operation Date: 03/25/25 10:00 Proposed Procedures p Right Total Knee Arthroplasty - Mars Martinez MD Date/Time: 03/25/25 09:44 Surgeon: Mars Martinez MD Pre Op Diagnosis: primary oa right knee Patient Data Age: 79 Gender: F Height: 1.61 m Weight: 63.2 kg Last Vital Signs Temp 36.4 C L 03/25/25 09:25 Pulse 64 03/25/25 09:25 Resp 18 03/03/25 08:54 BP 164/85 H 03/25/25 09:25 Pulse Ox 99 03/25/25 09:25 O2 Del Method Room Air 03/25/25 09:25 Allergies Allergy/AdvReac Type Severity Reaction Status Date / Time wheat Allergy Severe STOMACH Verified 03/03/25 08:05 PROBLEMS adhesive tape Allergy Rash Verified 03/03/25 08:05 brimonidine Allergy Itching Verified 03/03/25 08:05 dulaglutide (From Trulicity) Allergy Diarrhea Verified 03/03/25 08:05 semaglutide (From Rybelsus) Allergy Nausea Verified 03/03/25 08:05 Dairy Allergy Severe STOMACH Uncoded 03/03/25 08:05 PROBLEMS Home Medications ?Medication ?Instructions ?Recorded ?Confirmed ?Type albuterol 90 mcg/actuation aerosol 2 mcg inhalation 09/07/19 03/03/25 History inhaler topiramate 25 mg tablet (Topamax) 25 mg PO DAILY 09/07/19 03/03/25 History abaloparatide 80 mcg subcut DAILY 12/30/24 03/03/25 History acetaminophen 650 mg 650 mg PO Q12H 12/30/24 03/03/25 History tablet,extended release (Tylenol Arthritis Pain) buspirone 15 mg tablet 15 mg PO HS 12/30/24 03/03/25 History dicyclomine 10 mg capsule 10 mg PO PRN PRN BLOATING 12/30/24 03/03/25 History dorzolamide 22.3 mg-timolol 6.8 1 drp EACH EYE BID 12/30/24 03/25/25 History mg/mL eye drops latanoprost 0.005 % eye drops, 1 drp EACH EYE HS 12/30/24 03/03/25 History emulsion ogenyd-xzsakpgk-lvfukdl 1 cap PO BID 12/30/24 03/03/25 History 24,000-76,000-120,000 unit capsule,delayed rel (Creon) tirzepatide 5 mg/0.5 mL 5 mg subcut WEEKLY 12/30/24 03/03/25 History subcutaneous pen injector (Mounjaro) cholecalciferol (vitamin D3) 25 1,000 unit PO DAILY 03/03/25 03/03/25 History mcg (1,000 unit) capsule famotidine 20 mg tablet 20 mg PO HS 03/03/25 03/03/25 History lactose 500 mg capsule 500 mg PO DAILY 03/03/25 03/03/25 History vitamin A-vitamin C-vit E-min 1 tablet PO DAILY 03/03/25 03/03/25 History tablet (Ocutabs tablet) amlodipine 5 mg tablet 5 mg PO DAILY 03/16/25 03/25/25 History aspirin 81 mg tablet,delayed 81 mg PO BID 14 days #28 tabs 03/25/25 Rx release meloxicam 15 mg tablet 15 mg PO DAILY #30 tabs 03/25/25 Rx oxycodone-acetaminophen 5 mg-325 1 - 2 tablet PO Q4-6H PRN pain 7 03/25/25 Rx mg tablet days #30 tabs prednisone 5 mg tablet 5 mg PO DAILY 3 weeks #21 tabs 03/25/25 Rx Laboratory Tests 03/25/25 08:58 Blood Type O Positive Antibody Screen Pending Patient hx anesthesia problems: none Family hx anesthesia problems: none Results Review: All pre-operative results and documents have been reviewed as part of the pre-operative evaluation. [facility] Past Medical History Medical History History of endometrial biopsy Achilles tendinitis of right lower extremity Strain of latissimus dorsi muscle Osteoporosis Abnormality of left breast on screening mammography Primary open angle glaucoma Thyroid nodule Exocrine pancreatic insufficiency Mood disorder Sensorineural hearing loss Diabetic retinopathy associated with controlled type 2 diabetes mellitus Prediabetes Exercise-induced asthma Hypertension associated with diabetes Surgical History Surgical History History of thyroid surgery History of shoulder surgery History of rhinoplasty History of laparoscopic cholecystectomy History of colonoscopy History of cholecystectomy (~1993) History of cataract extraction (~02/27/24) Hx of breast biopsy History of arthroplasty of left knee (~09/09/18) Family History Family History Sibling Family history of malignant neoplasm of ovary Mother Glaucoma Hypertension Diabetes mellitus Father Heart disease Alcohol abuse Abdominal aortic aneurysm Social History Social History Smoking status: Never smoker Additional smoking assessment comments: DENIES ANY FORM OF TOBACCO USE Alcohol intake: never Living arrangements: with family Spiritual care concerns: No Anes - Eval Final PreProcedure Day of Procedure 03/25/25 09:44 Patient weight: normal Heart: regular rate and rhythm Lungs: clear to auscultation Airway: Mallampati scale class II Neurological: alert and oriented Last oral intake: >/= 8 hours ASA classification: III Emergent: no Anesthetic plan: proceed Anesthesia type and monitoring: general LMA and standard monitoring Results Review: All pre-operative results and documents have been reviewed as part of the pre-operative evaluation. Informed Consent: The patient's anesthetic plan and its attendant risks and benefits were discussed with the patient/family/POA. Questions were solicited and answers provided to the satisfaction of the patient/family/POA.
[2025-03-25] MEDS: ceFAZolin 2 GM in SODIUM CHLORIDE 0.9% IV 50 ML 100 ML IVPB (10:01)
[2025-03-25] MEDS: SODIUM CHLORIDE 0.9% IV 37.7 ML, MORPHINE SULFATE INJ (*CRX) 2 MG, ROPivacaine HCL 1% 2... INFILTRATE (10:37)
[2025-03-25] MEDS: TRANEXAMIC ACID 1,000 MG/10 ML AMPUL 1000 MG IV PUSH (12:11)
[2025-03-25] MEDS: fentaNYL CITRATE INJ (*CRX) 100 MCG/2 ML VIAL 25 MCG IV PUSH ×3 (12:55→13:03)
[2025-03-25] MEDS: ONDANSETRON INJ 4 MG/2 ML VIAL IV PUSH (13:23)
--- NOTE | 2025-03-25 16:31 | P.OP_ITS ---
Procedure Note - Detailed Date of Procedure 03/25/25 Pre-op Diagnosis Right knee degenerative arthritis. Post-op Diagnosis Same Procedure Performed Calipered, kinematically aligned total knee replacement right knee. Surgeon Mars Martinez MD Counseling Case Manager Teresa Law PA-C Anesthesia General Findings According to the calipered kinematic alignment principles, the knee was balanced by the following verification checks incorporating 6 caliper measurements, using an insert goniometer to select the insert thickness, and adjusting the tibial resection following the kinematic alignment algorithm (see figure 160.10 published in [employer] chapter on kinematic alignment total knee arthroplasty.) The steps verified the femoral and tibial components were kinematically aligned coincident to the patient's pre arthritic joint lines, which closely restored the [place] tibial compartment forces and ligament laxities without ligament release. The [employer] Cloud[employer]KA knee, designed specifically for kinematic alignment, fit optimally. Severe patellofemoral disease with dysplasia. Tricompartmental changes primarily medially. No releases. Subvastus approach. The record of verification checks were documented and scanned into the chart. Distal Femoral Resection: Distal Medial 6 mm(cartilage worn), Distal Lateral 8 mm Target thickness of 8mm Unworn, 6mm Worn (No Cartilage). Posterior Femoral Resection: Posterior Medial 5 mm(cartilage worn), Posterior Lateral 7 mm. Target thickness of 7mm Unworn, 5mm Worn (No Cartilage). Description of Procedure General anesthesia was administered. A well-padded tourniquet was placed high on the thigh. The limb was prepped and draped in the usual sterile fashion. The limb was exsanguinated and the tourniquet inflated to 300 mmHgduring exposure and cementation. A longitudinal incision was created over the midline of the knee. Sharp dissection was taken through subcutaneous tissues. Electrocautery was used for hemostasis. A subvastus approach to the knee joint was performed. The ACL, anterior horns of the menisci, and fat pad were excised, and a subperiosteal dissection was carried along the posterior medial border of the tibia. Starting midway between the top of the notch in the anterior femoral cortex, I drilled a 9 mm diameter hole parallel to the anterior cortex to minimize flexion of the femoral component and promote patella tracking. I verified the existence of a 5-10 mm bone bridge between the posterior aspect of the hole and the anterior limit of the intercondylar notch. An intraosseous positioning sarika was inserted 10 cm into the femur perpendicular to the distal joint line and parallel to the anterior cortex. I used a distal femoral referencing guide that compensated 2 mm when the cartilage was worn on the distal medial femoral condyle, and 2 mm when the cartilage was worn on the distal lateral femoral condyle. The basis for setting the distal and posterior femoral resection guide is knowing that the varus and valgus grade II to IV Kellegren-Chuckie osteoarthritic knees have negligible bone wear at 0? and 90? and that the mean full-thickness cartilage wear approximates 2 mm. I measured the thickness of distal femoral resections with a caliper to +/- 0.5 mm. The thickness of each resection was adjusted to match the thickness of the respective condyle of the femoral component within 0.5 mm of target after compensating for cartilage wear and kerf. When the distal resection was 1-2 mm too thin, a recut guide was used to adjust the cut. When the distal resection was too thick, a 1 or 2 mm thick washer was fixed to the back of the 4-in-1 chamfer block to wade a corrective gap between the femoral component and distal femur. I set posterior femoral referencing guide at 0? orientation to position the pin holes for the 4 in 1 chamfer block. The carlos a wing measured the width of the distal femoral resection and selected the size of the 4 in 1 chamfer block and femoral component. The AP sizer confirmed the size. I measured the thickness of the posterior femoral resections with a caliper before making the anterior and chamfer cuts. I adjusted the thicknesses of each resection to match the thickness of the respective condyle of the femoral component within +/-0.5 mm after compensating for cartilage wear and curve. When a posterior resection femoral resection was 1-2 mm too thick or thin a corrective correction was made by shifting or rotating the 4 in 1 chamfer block as needed. The chamfer block was secured in the correct position with compression screws. The anterior and chamfer femoral resections were made. These caliper measurements and corrections verified that the femoral component was set coincident with the patient's pre-arthritic distal and posterior femoral joint lines. I removed all the medial and lateral femoral and tibial osteophytes to restore the pre arthritic length of the medial and lateral collateral ligaments. I sanchez AP lines along the major axis of the lateral tibial plateau in between the tibial spines which identified the flexion extension plane of the knee. A conventional extramedullary tibial resection guide was applied to the ankle. An carlos a wing was placed medially in the saw slot. The varus valgus angle of the tibial resection guide was adjusted until the guide paralleled the proximal tibial articular surface after compensating for cartilage and bone wear. The slope of flexion extension angle of the tibial resection guide was adjusted until the carlos a wing paralleled the slope of the medial tibia after compensating for wear. The AP axis of the tibial resection guide was adjusted parallel to the two lines. The proximal tibia was resected, partially releasing the insertion of the posterior cruciate ligament. The thickness of the medial and lateral lateral t ibial condyle was measured at the base of the tibial spines. I visually verified the slope of the medial border of the resection was parallel to the patient's pre arthritic slope after compensating for cartilage and bone wear. I removed the remnants of the posterior horns of the menisci and posterior osteophytes and cauterized the inferior lateral genicular vessels. The Aquamantys bipolar device was also used to for additional hemostasis. When the knee had a preoperative flexion contracture of 20? or more I teased the capsule off the posterior femur with a curved 3 quarter-inch osteotome. I administered the posterior femoral periosteal injection by delivering 10 cc using a 20 gauge spinal needle at the most medial and 10 cc at the most lateral femoral spur surface which reduced the risk of injury to the posterior neurovascular structures. I followed 6 options in a decision tree to fine tune the varus valgus and posterior slope orientation of the tibial component to restore the patient's pre arthritic tibial joint line and limb alignment. First, I adjusted the varus- valgus orientation of the proximal tibia resection working in 1 degree to 2 degree increments until there was negligible medial and lateral lift off of the distal femoral and proximal tibial resection from the spacer block during a varus valgus laxity assessment in extension. I selected the largest anatomic shape trial tibial base plate that fit within the cortical boundary of the proximal tibial resection. The base plate was best fit parallel to the cortical boundary which set the Internal-external orie ntation of the anterior to posterior and medial to lateral positions. The best fit method set the AP axis of the tibial base plate and insert parallel to the flexion extension plane of the pre arthritic knee. I pinned the trial tibial base plate, prepared the cruciate slot, and fixed the base plate to the tibia with the cruciate stem. I inserted the trial femoral component. The knee was placed in full extension. Varus valgus laxity is of the knee with trial components were assessed. When asymmetric laxity was observed a 1-2 degree varus or valgus recut guide was used to fine tune the tibial resection until the laxity was 1 degree or less in full extension like the [place] knee. The following steps determined the optimal insert thickness within +/-1 mm. First I inserted an insert goniometer that matched the thickness of the spacer block. I reduced the patella and then with the knee in maximum extension, I verified the knee hyperextended a few degrees and had negligible varus valgus laxity, like the pre arthritic knee. Next, I measured the external tibial orientation which was the angle the insert goniometer intersected the sagittal line on the medial condyle of the femoral trial component. Then with the knee in 15-30 degrees flexion I verified a 3-4 mm gap in the lateral compartment and no gap in the medial compartment during a 2nd varus valgus laxity test. Next, I placed the knee in 90? of flexion and the foot resting on the operating table and measured the internal tibial orientation. I repeated the steps until I identified the insert thickness that provided the highest external tibia orientation in extension and the highest internal tibial orientation at 90? flexion without anterior lift-off of the insert from the tibial base plate. The insert with this thickness was implanted. I applied a posterior drawer test with the tibia distracted by gravity and verified no posterior subluxation of the tibia relative to the femur. The thickness of the [place] patella was measured with a caliper. The patella was resected using the oscillating saw. The best fitting anatomic patella button was selected. The fixation holes were drilled. When the patella and patella buttons combined thickness was thicker than the [place] patella, the patella was recut. The patella remained centered on the trochlea and tracked well throughout the entire arc of flexion and extension. I used pulse lavage to clean the bony surfaces of debris and dried bone. I cemented the tibial, femoral, and patellar components using 1 bag of methylmethacrylate with Gentamycin, then rechecked the stability at full extension, 15-30 degrees, and 90? flexion and verified caodaism of the entire arc of motion of the knee. The circulating nurse confirmed the sponge and needle counts were correct. I used pulse lavage to rinse the joint and wound. The extensor mechanism was closed with interrupted #1 Vicryl suture and #1 running Stratafix suture. The subcutaneous layer was closed with interrupted #1 Vicryl suture followed by 2-0 Stratafix and 3-0 Stratafix. Steri-Strips placed on the skin. Silver impregnated occlusive dressing applied to the wound. A light gauze wrap and Hugo bandage were placed. The patient was transferred to the recovery room in stable condition. There were no complications. Implants Medacta GMK spheriKA Femoral component SpheriKA size 3, tibial component size 2, vitamin-E flex insert, thickness 11mm, Ml patella implant size 2. Estimated Blood Loss 100 Drains No Pathology None sent Complications No immediate complications Condition Stable Disposition PACU [facility] Billing Surgery - Charge Forward: Surgery Billing
== END 2025-03-25 15:20 | disposition home or self-care (01) ==
PROVIDERS: PCP Internal Medicine Geriatric Medicine; Visit Provider Orthopaedic Surgery
PROC: (CPT 27447; principal; 2025-03-25 10:00)
DX: M17.11 Unilateral primary osteoarthritis, right knee (principal); M25.761 Osteophyte, right knee; I10 Essential (primary) hypertension; J45.909 Unspecified asthma, uncomplicated; M81.0 Age-related osteoporosis without current pathological fracture; E11.319 Type 2 diabetes mellitus with unspecified diabetic retinopathy without macular edema; K86.81 Exocrine pancreatic insufficiency; F39 Unspecified mood [affective] disorder; Z79.51 Long term (current) use of inhaled steroids; Z79.85 Long-term (current) use of injectable non-insulin antidiabetic drugs; Z79.82 Long term (current) use of aspirin; Z79.891 Long term (current) use of opiate analgesic; Z79.52 Long term (current) use of systemic steroids; Z98.890 Other specified postprocedural states; Z90.49 Acquired absence of other specified parts of digestive tract; Z80.41 Family history of malignant neoplasm of ovary; Z82.49 Family history of ischemic heart disease and other diseases of the circulatory system
CPT/HCPCS: 27447; 36415; 73560; 82948; 86850; 86900; 86901; 97110; 97161; 97165; C1776; J0690; A9270; C1713; J0166; J0461; J1100; J1596; J1885; J2270; J2405; J2704; J2795; J3010; J7120